=== PATIENT | male | born 1945 | race Caucasian/White ===

== ENCOUNTER → 2020-08-22 | Outpatient (CLI) | payer MEDICARE, BC ==
[2020-08-22 11:14] LABS: Basophils # (A) 0.1 k/uL (0-0.2); Basophils % (A) 1 %; Eosinophils # (A) 0.3 k/uL (0-0.7); Eosinophils % (A) 4 %; HCT 44.5 % (39.0-53.0); HGB 14.6 gm/dL (13.0-17.5); Lymphocytes # (A) 1.3 k/uL (1.0-4.8); Lymphocytes % (A) 18 %; MCH 29.9 pg (25.0-35.0); MCHC 32.8 g/dL (31.0-37.0); Mean Platelet Volume 6.7; Monocytes # (A) 0.3 k/uL (0-1.0); Monocytes % (A) 4 %; Neutrophils # (A) 4.9 k/uL (1.3-7.7); Neutrophils % (A) 69 %; Platelet Count 253 k/uL (150-450); RBC 4.89 m/uL (4.30-5.90); RDW 14.7 % (11.5-15.5); WBC 7.2 k/uL (3.8-10.6)
[2020-08-22 11:17] LABS: Appearance,Urine Clear (Clear); Bilirubin,Urine Negative (Negative); Blood,Urine Negative (Negative); Color,Urine Yellow; Glucose,Urine (UA) Negative (Negative); Ketones,Urine Negative (Negative); Leukocyte Esterase,Urine Negative (Negative); Nitrite,Urine Negative (Negative); PH, Urine 5.5 (5.0-8.0); Protein,Urine Negative (Negative); Specific Gravity,Urine 1.015 (1.001-1.035); Urobilinogen,Urine <2.0 mg/dL (<2.0)
[2020-08-22 11:28] LABS: African American GFR (CKD) >90 (>60 ml/min/1.73 sqM); Anion Gap 6 mmol/L; Blood Urea Nitrogen 20 mg/dL (9-20); Calcium 9.1 mg/dL (8.4-10.2); Carbon Dioxide 30 mmol/L (22-30); Chloride 101 mmol/L (98-107); Glucose 96 mg/dL (74-99); Non-African American GFR(CKD) 86 (>60 ml/min/1.73 sqM); Potassium 4.6 mmol/L (3.5-5.1); Sodium 137 mmol/L (137-145)
== END | disposition home or self-care (01) ==
LOC: LABPAT 10:24
PROVIDERS: ATTEND Urology
DX: C61 Malignant neoplasm of prostate (principal); N32.0 Bladder-neck obstruction; I10 Essential (primary) hypertension; R00.1 Bradycardia, unspecified
CPT/HCPCS: 36415; 80048; 81003; 85025; 87086; 93005

== ENCOUNTER 2020-08-29 06:26 | Day surgery (SDC) | payer MEDICARE, BC ==
[2020-08-24 09:02] VITALS: BMI 44.6
--- NOTE | 2020-08-28 19:40 | P.GSHP ---
History of Present Illness H&P Date: 08/28/20 75 yo male with prostate cancer treated with brachytherapy in 2014 at [facility] He eventually came to [place] and I assumed his prostate care. He has been having increasing urinary frequency with incomplete bladder emptying. He had cysto identifying an obstructing bladder neck. He comes for a bipolar channel turp to relieve the obstruction. the risks and complications including infection, bleeding and incontinence have been discussed. - Constitutional Constitutional: Denies chills, Denies fever - EENT Eyes: denies blurred vision, denies pain Ears, nose, mouth and throat: Denies headache, Denies sore throat - Cardiovascular Cardiovascular: Denies chest pain, Denies shortness of breath - Respiratory Respiratory: Denies cough, Denies 7 - Gastrointestinal Gastrointestinal: Denies abdominal pain, Denies diarrhea, Denies nausea, Denies vomiting - Genitourinary (Female) Genitourinary: Denies dysuria, Denies hematuria - Genitourinary (Male) Genitourinary: Denies dysuria, Denies hematuria - Musculoskeletal Musculoskeletal: Denies myalgias - Integumentary Integumentary: Denies pruritus, Denies rash - Neurological Neurological: Denies numbness, Denies weakness - Psychiatric Psychiatric: Denies anxiety, Denies depression - Endocrine Endocrine: Denies fatigue, Denies weight change Past Medical History Past Medical History: Cancer, Eye Disorder, Hypertension, Prostate Disorder Additional Past Medical History / Comment(s): PROSTATE CANCER WITH RADIATION. BILAT CATARACTS. BLE NEUROPATHY History of Any Multi-Drug Resistant Organisms: None Reported Past Surgical History: Joint Replacement, Orthopedic Surgery, Prostate Surgery, Tonsillectomy Additional Past Surgical History / Comment(s): LT TKA 2014 WITH REVISION IN 2014. LT KNEE SX. RT BUNIONECTOMY. COLONOSCOPY. EPIDURAL BACK INJECTIONS Past Anesthesia/Blood Transfusion Reactions: No Reported Reaction Smoking Status: Former smoker - Past Family History Father Family Medical History: Cancer Additional Family Medical History / Comment(s): BRAIN Mother Family Medical History: Cancer Additional Family Medical History / Comment(s): LUNG Brother(s) Family Medical History: Cancer Additional Family Medical History / Comment(s): PANCREATIC Medications and Allergies Home Medications Medication Instructions Recorded Confirmed Type Ascorbic Acid [Vitamin C] 1,000 mg PO DAILY 08/24/20 08/24/20 History Cholecalciferol [Vitamin D3 (25 100 mcg PO DAILY 08/24/20 08/24/20 History Mcg = 1000 Iu)] Gabapentin 600 mg PO TID 08/24/20 08/24/20 History Meloxicam [Mobic] 7.5 mg PO BID 08/24/20 08/24/20 History Metoprolol Succinate [Toprol XL] 25 mg PO DAILY 08/24/20 08/24/20 History Pyridoxine HCl (Vitamin B6) 100 mg PO DAILY 08/24/20 08/24/20 History [Vitamin B-6] hydroCHLOROthiazide [Hydrodiuril] 25 mg PO MOWEFR 08/24/20 08/24/20 History lisinopriL 40 mg PO DAILY 08/24/20 08/24/20 History Allergies Allergy/AdvReac Type Severity Reaction Status Date / Time Penicillins Allergy Anaphylaxis Verified 08/24/20 08:49 Surgical - Exam - General well developed, well nourished, no distress - Eyes PERRL - ENT normal mucosa - Neck trachea midline - Respiratory normal expansion, normal respiratory effort - Cardiovascular Rhythm: regular - Abdomen Abdomen: soft, non tender - Genitourinary normal penis with no external lesions, testicles present - Integumentary no rash, no growths - Musculoskeletal normal gait, normal posture - Psychiatric oriented to time, oriented to person, oriented to place, speech is normal, memory intact Assessment and Plan Assessment: Impression: Prostate cancer, bladder neck obstruction Plan: bipolar turp
[~2020-08-29 06:26] MED LIST: CLINDAMYCIN 900 MG in DEXTROSE 5% IN WATER 50 ML IVPB PRN; DEXAMETHASONE SOD PHOSPHATE 4 MG/ML 1 ML VIAL IV ONE; GENTAMICIN 480 MG in SODIUM CHLORIDE 0.9% 100 ML IVPB PRN; LACTATED RINGERS 1,000 ML IV SCH; ONDANSETRON 4 MG/2 ML VIAL IVP ONE; SCOPOLAMINE 1.5MG/72HR PATCH TRANSDERM ONE
[2020-08-29] MEDS ORDERED: HYDROmorphone 0.5 MG/0.5 ML SYRINGE IVP PRN (07:00)
[2020-08-29] MEDS ORDERED: LIDOCAINE 1% (10MG/ML) FOR IV START INTRADERMA ONE (07:11)
[2020-08-29] MEDS ORDERED: fentaNYL (PF) 50 MCG/ML 2 ML AMP ONE (07:19)
[2020-08-29] MEDS ORDERED: SUCCINYLCHOLINE CHLORIDE 100 MG/5 ML SYR IV ONE (07:19)
[2020-08-29] MEDS ORDERED: GLYCOPYRROLATE 0.2 MG/ML 2 ML VIAL ONE (07:19)
[2020-08-29] MEDS ORDERED: ROCURONIUM 10 MG/ML (5 ML VIAL) IV ONE (07:19)
[2020-08-29] MEDS ORDERED: LIDOCAINE 1% INJ 10MG/ML (20 ML MDV) ONE (07:19)
[2020-08-29] MEDS ORDERED: PROPOFOL 10 MG/ML 20 ML VIAL IV ONE (07:19)
[2020-08-29] MEDS ORDERED: MIDAZOLAM 2 MG/2 ML VIAL ONE (07:19)
[2020-08-29] MEDS ORDERED: ePHEDrine SULFATE/0.9% NACL/PF 50 MG/5 ML SYRINGE IV ONE (07:19)
[2020-08-29] MEDS ORDERED: NEOSTIGMINE 1 MG/ML 10 ML VIAL ONE (07:19)
[2020-08-29 07:22] VITALS: TEMP 97.2
--- NOTE | 2020-08-29 08:24 | P.OP ---
Date of Procedure: 08/29/20 Preoperative Diagnosis: Bladder neck obstruction, incomplete bladder emptying, prostate cancer status post radiation therapy Postoperative Diagnosis: Same Procedure(s) Performed: Bipolar TURP with plasma button Anesthesia: MORENA Surgeon: Marcello Edgar Estimated Blood Loss (ml): 10 Pathology: none sent Condition: stable Disposition: PACU Indications for Procedure: The patient is 75. Many years ago he had achy therapy for prostate cancer [facility]. Is been having problems urinating. His PSA is nondetectable. His bladder neck is obstructed and he does not empty his bladder well. He comes for a bipolar TURP with probable plasma button Description of Procedure: Patient is brought to the operating suite. He is given a general endotracheal anesthesia. He is prepped and draped sterilely. Urethra is dilated to 3-Panamanian with [place] sounds. Under direct vision the 25-Panamanian sheath and direct vision obturator and Foroblique lenses introduced in urethra. The prostate inspected. The bladder neck is high riding. There is some lateral lobe obstruction. With the plasma button I first opened the bladder neck. I then vaporized the lateral lobes anterior lobe and then the redundant floor tissue. Then the procedure sitting of the verumontanum the bladder neck is open the scope easily slides in and out of the bladder. The scope was removed and the bladder. With a good strong stream. An 18-[place]amanian coud-tip catheter is introduced in the bladder clear urine return The patient is awake and returned recovery room good condition. He will be discharged home upon recovery with the catheter. A found the office in 48 hours for cath removal. Blood loss is minimal.
[2020-08-29 08:47] VITALS: RESP 16
[2020-08-29 09:45] VITALS: BP 110/76; PULSE 64
== END 2020-08-29 10:18 | disposition home or self-care (01) ==
LOC: OR 06:26
PROVIDERS: ATTEND Urology
DX: N32.0 Bladder-neck obstruction (principal); Z85.46 Personal history of malignant neoplasm of prostate; Z92.3 Personal history of irradiation; I10 Essential (primary) hypertension; H26.9 Unspecified cataract; G62.9 Polyneuropathy, unspecified; Z87.891 Personal history of nicotine dependence; G47.33 Obstructive sleep apnea (adult) (pediatric); Z99.89 Dependence on other enabling machines and devices; M48.00 Spinal stenosis, site unspecified; Z98.890 Other specified postprocedural states; Z96.652 Presence of left artificial knee joint; Z97.2 Presence of dental prosthetic device (complete) (partial); Z80.8 Family history of malignant neoplasm of other organs or systems; Z80.1 Family history of malignant neoplasm of trachea, bronchus and lung; Z80.0 Family history of malignant neoplasm of digestive organs; Z79.1 Long term (current) use of non-steroidal anti-inflammatories (NSAID); Z79.899 Other long term (current) drug therapy; Z88.0 Allergy status to penicillin
CPT/HCPCS: 52601; J2250; J1100; J2710; J2405; J2001; J3010; J1580; J0330; J2704

== ENCOUNTER → 2021-06-18 | Outpatient (CLI) | payer MEDICARE, BC ==
--- NOTE | 2021-06-18 11:58 | XR ---
EXAMINATION TYPE: XR KUB DATE OF EXAM: 06/18/2021 HISTORY: Pain Comparison: None.Single KUB is submitted for interpretation. Findings: Right renal calculi: None Visualized. Right ureteral calculi: None Visualized. Left renal calculi: 7.7 mm calculus mid left ureter at the L3-4 level. Left ureteral calculi: None Visualized. Pelvic calcifications: None Visualized. Bowel gas pattern is unremarkable. No free air. No mass effects. IMPRESSION: 1. 7.7 mm calculus mid left ureter at the L3-4 level.
== END | disposition home or self-care (01) ==
LOC: RADXRMAIN 10:28
PROVIDERS: ATTEND Urology
DX: N20.1 Calculus of ureter (principal)
CPT/HCPCS: 74018

== ENCOUNTER → 2021-06-28 | Outpatient (CLI) | payer MEDICARE, BC ==
--- NOTE | 2021-06-28 12:03 | XR ---
EXAMINATION TYPE: XR chest 2V DATE OF EXAM: 06/28/2021 COMPARISON: NONE HISTORY: Shortness of breath TECHNIQUE: Frontal and lateral views of the chest are obtained. FINDINGS: Scattered senescent parenchymal changes noted. Hyperinflation compatible with COPD. No evidence for infiltrate. No evidence for atelectasis. Heart size is stable. Mediastinal structures are stable and grossly unremarkable. No evidence for hilar prominence. Degenerative changes dorsal spine. IMPRESSION: 1. No evidence for acute pulmonary disease.
[2021-06-28 12:38] LABS: Appearance,Urine Clear (Clear); Bilirubin,Urine Negative (Negative); Blood,Urine Negative (Negative); Color,Urine Yellow; Glucose,Urine (UA) Negative (Negative); Hyaline Casts,Urine 1 /lpf (0-2); Ketones,Urine Negative (Negative); Leukocyte Esterase,Urine Trace (Negative); Mucus,Urine Rare /hpf; Nitrite,Urine Negative (Negative); PH, Urine 5.5 (5.0-8.0); Protein,Urine 1+ (Negative); Specific Gravity,Urine 1.022 (1.001-1.035); Urobilinogen,Urine <2.0 mg/dL (<2.0); WBC,Urine 13 /hpf (0-5)
[2021-06-28 12:48] LABS: Partial Thromboplastin Time 25.2 sec (22.0-30.0); Prothrombin Time 10.8 sec (9.0-12.0)
[2021-06-28 18:11] LABS: African American GFR (CKD) 39.6 (60.0-200.0); Anion Gap 12.2 mmol/L (10.00-18.00); BUN/Creat Ratio 16.38 Ratio (12.00-20.00); Blood Urea Nitrogen 30.8 mg/dL (9.0-27.0); Calcium 8.9 mg/dL (8.7-10.3); Non-African American GFR(CKD) 34.2 (60.0-200.0); Potassium 4.8 mmol/L (3.5-5.5)
[2021-06-28 18:17] LABS: Basophils # (A) 0.07 X 10*3/uL (0.00-0.10); Basophils % (A) 1.1 %; Eosinophils % (A) 6.5 %; HGB 13.2 g/dL (13.0-17.0); Immature Grans, Automated 0.2 %; Lymphocytes # (A) 1.17 X 10*3/uL (0.90-5.00); Lymphocytes % (A) 19.1 %; MCH 29.4 pg (27.0-32.0); MCHC 31.4 g/dL (32.0-37.0); MCV 93.5 fL (80.0-97.0); Mean Platelet Volume 9.4 fL (9.5-12.2); Monocytes # (A) 0.51 X 10*3/uL (0.20-1.00); Monocytes % (A) 8.3 %; NRBC Per 100 WBC 0 /100 WBCS (0.0-0.0); Neutrophils # (A) 3.98 X 10*3/uL (1.80-7.70); Neutrophils % (A) 64.8 %; Platelet Count 283 X 10*3/uL (140-440); RBC 4.49 X 10*6/uL (4.40-5.60); RDW 14.5 % (11.5-14.5); WBC 6.14 X 10*3/uL (4.50-10.00)
== END | disposition home or self-care (01) ==
LOC: RADXRMAIN 11:18
PROVIDERS: ATTEND Orthopaedic Surgery Orthopaedic Surgery of the Spine
DX: Z01.818 Encounter for other preprocedural examination (principal); M48.061 Spinal stenosis, lumbar region without neurogenic claudication; R06.02 Shortness of breath
CPT/HCPCS: 36415; 71046; 80048; 81001; 85025; 85610; 85730; 87070; 93005

== ENCOUNTER → 2021-06-28 | Outpatient (CLI) | payer MEDICARE, BC ==
--- NOTE | 2021-06-28 12:30 | XR ---
EXAMINATION TYPE: XR KUB DATE OF EXAM: 06/28/2021 HISTORY: Pain Comparison: None.Single KUB is submitted for interpretation. Findings: Right renal calculi: None Visualized. Right ureteral calculi: None Visualized. Left renal calculi: None Visualized. Left ureteral calculi: 6 mm calculus overlying the left L5 transverse process. Pelvic calcifications: None Visualized. Bowel gas pattern is unremarkable. No free air. No mass effects. IMPRESSION: 6 mm calculus overlying the left L5 transverse process.
== END | disposition home or self-care (01) ==
LOC: RADXRMAIN 11:30
PROVIDERS: ATTEND Urology
DX: N20.1 Calculus of ureter (principal)
CPT/HCPCS: 74018

== ENCOUNTER 2021-07-04 11:53 | Day surgery (SDC) | payer MEDICARE, BC ==
[2021-07-02 11:21] VITALS: BMI 42.3
--- NOTE | 2021-07-04 07:03 | P.GSHP ---
History of Present Illness H&P Date: 07/04/21 75 yo male with a history of stones. HE had eswl left 06/24 for a larger upper ureteral stone. The fu xray shows the stone broke a little and moved distally. He is to have back surgery next week. We discussed treatment and I explained to him that I didnt want to have to operate on him if the stone doesnt move and causes pain after a fresh back surgery. He therefore comes for left ureteroscopy with laser lithotripsy. - Constitutional Constitutional: Denies chills, Denies fever - EENT Eyes: denies blurred vision, denies pain Ears, nose, mouth and throat: Denies headache, Denies sore throat - Cardiovascular Cardiovascular: Denies chest pain, Denies shortness of breath - Respiratory Respiratory: Denies cough, Denies 7 - Gastrointestinal Gastrointestinal: Denies abdominal pain, Denies diarrhea, Denies nausea, Denies vomiting - Genitourinary (Female) Genitourinary: Denies dysuria, Denies hematuria - Genitourinary (Male) Genitourinary: Denies dysuria, Denies hematuria - Musculoskeletal Musculoskeletal: Denies myalgias - Integumentary Integumentary: Denies pruritus, Denies rash - Neurological Neurological: Denies numbness, Denies weakness - Psychiatric Psychiatric: Denies anxiety, Denies depression - Endocrine Endocrine: Denies fatigue, Denies weight change Past Medical History Past Medical History: Cancer, Hearing Disorder / Deafness, Hypertension, O steoarthritis (OA), Prostate Disorder, Sleep Apnea/CPAP/BIPAP Additional Past Medical History / Comment(s): C PAP MACHINE, PROSTATE CANCER, KIDNEY STONES, History of Any Multi-Drug Resistant Organisms: None Reported Past Surgical History: Joint Replacement, Tonsillectomy Additional Past Surgical History / Comment(s): TOTAL LEFT KNEE-X 2, BUNIONECTOMY RIGHT FOOT, Past Anesthesia/Blood Transfusion Reactions: No Reported Reaction Smoking Status: Former smoker - Past Family History Mother Family Medical History: No Reported History, Cancer Father Family Medical History: Cancer Additional Family Medical History / Comment(s): BRAIN CANCER Medications and Allergies Home Medications Medication Instructions Recorded Confirmed Type Meloxicam [Mobic] 7.5 mg PO BID 08/24/20 07/02/21 History hydroCHLOROthiazide [Hydrodiuril] 25 mg PO MOWEFR 08/24/20 07/02/21 History lisinopriL 40 mg PO DAILY 08/24/20 07/02/21 History Gabapentin [Neurontin] 600 mg PO TID 07/02/21 07/02/21 History Ibuprofen [Motrin] 600 mg PO Q8HR PRN 07/02/21 07/02/21 History Metoprolol Tartrate [Lopressor] 25 mg PO DAILY 07/02/21 07/02/21 History Solifenacin Succinate [Vesicare] 10 mg PO DAILY 07/02/21 07/02/21 History Tamsulosin [Flomax] 0.4 mg PO DAILY 07/02/21 07/02/21 History amLODIPine [Norvasc] 5 mg PO DAILY 07/02/21 07/02/21 History Allergies Allergy/AdvReac Type Severity Reaction Status Date / Time Penicillins Allergy Anaphylaxis Verified 07/02/21 10:38 Surgical - Exam - General well developed, well nourished, no distress - Eyes normal ocular movement, no icteric - ENT no hearing loss, no congestion - Neck no masses, trachea midline - Respiratory normal respiratory effort, clear to auscultation - Abdomen Abdomen: soft, non tender, no guarding, no rigid, no rebound - Integumentary no rash, no abnormal pigmentation - Neurologic no disoriented, no combative - Musculoskeletal limited gait due to bad back - Psychiatric oriented to time, oriented to person, oriented to place, speech is normal, memory intact Results - Imaging Abdominal x-ray: report reviewed, image reviewed Assessment and Plan Assessment: Impression: left ureteral stone with obstruction Plan: left ureterocopy with laser lithotripsy
[~2021-07-04 11:53] MED LIST changes: -CLINDAMYCIN 900 MG in DEXTROSE 5% IN WATER 50 ML IVPB PRN; +GENTAMICIN 140 MG in SODIUM CHLORIDE 0.9% 100 ML IVPB PRN; -GENTAMICIN 480 MG in SODIUM CHLORIDE 0.9% 100 ML IVPB PRN; +HYDROmorphone 0.5 MG/0.5 ML SYRINGE IVP PRN; +LIDOCAINE 1% (10MG/ML) FOR IV START INTRADERMA PRN; +MIDAZOLAM 2 MG/2 ML VIAL IV PRN; -SCOPOLAMINE 1.5MG/72HR PATCH TRANSDERM ONE
[2021-07-04] MEDS ORDERED: LACTATED RINGERS 1,000 ML IV ONE (12:31)
--- NOTE | 2021-07-04 13:26 | XR ---
EXAMINATION TYPE: XR KUB DATE OF EXAM: 07/04/2021 Comparison: 07/01/2021 Clinical History: 75-year-old male kidney stones, lithotripsy OR SCHEDULED 07/04/21 Findings: Moderate to severe degenerative change right hip. Some vascular calcifications in the left side of th e pelvis. Unchanged 8 mm calcification projecting just above the left SI joint. Nonobstructive bowel gas pattern. Mild stool in the right side of the abdomen. Impression: Unchanged 8 mm calcification possibly in the mid left ureter.
[2021-07-04] MEDS ORDERED: SUCCINYLCHOLINE CHLORIDE 100 MG/5 ML SYR IV ONE (14:04)
[2021-07-04] MEDS ORDERED: PROPOFOL 10 MG/ML 20 ML VIAL IV ONE (14:04)
[2021-07-04] MEDS ORDERED: LIDOCAINE 1% INJ 10MG/ML (20 ML MDV) ONE (14:04)
[2021-07-04] MEDS ORDERED: ROCURONIUM 10 MG/ML (5 ML VIAL) IV ONE (14:04)
[2021-07-04] MEDS ORDERED: ePHEDrine 50 MG/ML 1 ML VIAL ONE (14:04)
[2021-07-04] MEDS ORDERED: GLYCOPYRROLATE 0.2 MG/ML 2 ML VIAL ONE (14:04)
[2021-07-04] MEDS ORDERED: fentaNYL (PF) 50 MCG/ML 2 ML AMP ONE (14:04)
[2021-07-04] MEDS ORDERED: NEOSTIGMINE 1 MG/ML 10 ML VIAL ONE (14:04)
--- NOTE | 2021-07-04 15:41 | P.OP ---
Date of Procedure: 07/04/21 Preoperative Diagnosis: left ureteral stone Postoperative Diagnosis: Same Procedure(s) Performed: Cystoscopy, left ureteroscopy laser lithotripsy, placement of 6 x 26 stent Anesthesia: MORENA Surgeon: Marcello Edgar Estimated Blood Loss (ml): 0 Pathology: other (Stone) Condition: stable Disposition: PACU Indications for Procedure: Patient is 75. A 9 mm stone in the left UPJ treated with shockwave lithotripsy. The stone broke but a 6-7 mm fragment lodged in the mid ureter. He is having back surgery next week. He he comes for removal of this stones he does not problems from the stone during the back surgery Description of Procedure: Patient brought operating suite. He is given a general anesthesia. He's placed lithotomy position with sterile prep and drape. Cystoscopy Foroblique lens and 21-Spanish sheath identifies a normal anterior urethra. There is scarring and apical prostate from a previous TURP. This is manipulated. There is some stony debris in the prostate. I entered the bladder identify trabeculation. The left ureteral orifice is somewhat small. I attempted dilated with the 8 cone-tipped catheter but I am unsuccessful if this up. I thus passed an 035 wire up the ureter into the kidney. Over the wires passed a 23-22-Gmfblu reentry sheath that passes just distal to the ureteral stone. Through the inner sheath the flexible ureteroscope was passed up to the stone. I break the stone into very tiny fragments and basket the largest fragments. There is a lot of edema in the left ureter where the stone enlarged due to the stone as well as the laser lithotripsy. A stent will be placed. I passed a wire through the scope up into the kidney. I removed the sheath and backloaded the wire onto the cystoscope. Over the wires passed a 6 x 26 double-J catheter. Because he is having his back surgery next week I will leave the stent in 3-4 weeks as I do not wish to do any significant manipulation during the immediate perioperative period. He'll be placed on Levaquin for 10 days.
[2021-07-04 15:49] VITALS: RESP 16; TEMP 96.8
[2021-07-04 16:55] VITALS: BP 127/69; PULSE 77
--- NOTE | 2021-07-04 22:10 | FL ---
Intraoperative fluoroscopic services were provided for left ureteral stent placement. Total fluorosco py time 47 seconds minutes with a total of 2 submitted images to PACS. Please see the operative note for further details.
== END 2021-07-04 18:49 | disposition home or self-care (01) ==
LOC: OR 11:53
PROVIDERS: ATTEND Urology
DX: N20.1 Calculus of ureter (principal); H91.90 Unspecified hearing loss, unspecified ear; I10 Essential (primary) hypertension; M19.90 Unspecified osteoarthritis, unspecified site; G47.30 Sleep apnea, unspecified; M48.00 Spinal stenosis, site unspecified; Z97.2 Presence of dental prosthetic device (complete) (partial); Z85.46 Personal history of malignant neoplasm of prostate; Z96.652 Presence of left artificial knee joint; Z98.890 Other specified postprocedural states; Z87.891 Personal history of nicotine dependence; Z80.8 Family history of malignant neoplasm of other organs or systems; Z79.1 Long term (current) use of non-steroidal anti-inflammatories (NSAID); Z79.899 Other long term (current) drug therapy; Z88.0 Allergy status to penicillin
CPT/HCPCS: 82365; 74018; 52356; C2625; C1758 ×2; C1769; J1100; J2710; J2405; J2001; J3010; J1580; J0330; J2704

== ENCOUNTER 2021-07-10 06:18 | Inpatient (IN) | payer MEDICARE, BC ==
[2021-07-08 10:35] VITALS: BMI 42.3
[2021-07-10] MEDS ORDERED: LIDOCAINE 1% (10MG/ML) FOR IV START INTRADERMA PRN (06:22)
[2021-07-10] MEDS ORDERED: ONDANSETRON 4 MG/2 ML VIAL IVP ONE (06:22)
[2021-07-10] MEDS ORDERED: HYDROmorphone 0.5 MG/0.5 ML SYRINGE IVP PRN (07:00)
[2021-07-10] MEDS: LACTATED RINGERS 1,000 ML IV SCH (07:01)
[2021-07-10 07:32] LABS: Partial Thromboplastin Time 25.6 sec (22.0-30.0); Prothrombin Time 11.3 sec (9.0-12.0)
[2021-07-10] MEDS ORDERED: KETAMINE 10 MG/ML 20 ML VIAL ONE (07:44)
[2021-07-10] MEDS ORDERED: SUCCINYLCHOLINE CHLORIDE VIAL 200 MG/10 ML VIAL IV ONE (07:44)
[2021-07-10] MEDS ORDERED: HYDROmorphone (PF) 1 MG/ML ONE (07:44)
[2021-07-10] MEDS ORDERED: PHENYLEPHRINE-0.9% NACL SYG 1,000 MCG/10 ML SYRINGE ONE (07:44)
[2021-07-10] MEDS ORDERED: SODIUM CHLORIDE 0.9% IRRIG 1,000 ML BTL IRRIGATION ONE (07:44)
[2021-07-10] MEDS ORDERED: MIDAZOLAM 2 MG/2 ML VIAL ONE (07:44)
[2021-07-10] MEDS ORDERED: HEPARIN SODIUM,PORCINE 10,000 UNIT/ML 1 ML VIAL ONE (07:44)
[2021-07-10] MEDS ORDERED: SODIUM CHLORIDE 0.9% 100 ML with CLINDAMYCIN 600 MG IV ONE ×2 (07:44)
[2021-07-10] MEDS ORDERED: fentaNYL (PF) 50 MCG/ML 2 ML AMP ONE (07:44)
[2021-07-10] MEDS ORDERED: PROPOFOL 10 MG/ML 20 ML VIAL IV ONE (07:44)
[2021-07-10] MEDS ORDERED: ALBUMIN HUMAN 5% (25gm) 500 ML VIAL IVPB ONE (07:44)
[2021-07-10] MEDS ORDERED: LIDOCAINE 1% INJ 10MG/ML (20 ML MDV) ONE (07:44)
[2021-07-10] MEDS ORDERED: VASOPRESSIN 20 UNIT/ML 1 ML VIAL ONE (07:44)
[2021-07-10] MEDS ORDERED: ROCURONIUM 10 MG/ML (5 ML VIAL) IV ONE (07:44)
[2021-07-10] MEDS ORDERED: NEOSTIGMINE 1 MG/ML 10 ML VIAL ONE (07:44)
[2021-07-10] MEDS ORDERED: GLYCOPYRROLATE 0.2 MG/ML 2 ML VIAL ONE (07:44)
[2021-07-10] MEDS ORDERED: ePHEDrine 50 MG/ML 1 ML VIAL ONE (07:44)
[2021-07-10] MEDS ORDERED: ALBUTEROL HFA INHALER INHALATION ONE (07:44)
[2021-07-10] MEDS ORDERED: GELATIN SPONGE,ABSORB (LARGE) 1 EACH SPONGE MISCELLANE ONE (08:28)
[2021-07-10] MEDS ORDERED: BUPIVACAINE (PF) 0.25% 30 ML VIAL SQ ONE ×2 (08:29)
[2021-07-10] MEDS ORDERED: THROMBIN (BOVINE) 5,000 UNIT VIAL TOPICAL ONE (08:29)
[2021-07-10] MEDS ORDERED: LACTATED RINGERS 1,000 ML IV ONE ×4 (08:36→13:57)
[2021-07-10] MEDS ORDERED: ceFAZolin 1,000 MG in SODIUM CHLORIDE 0.9% 1,000 ML IRRIGATION ONE (08:54)
[2021-07-10] MEDS ORDERED: BENZOCAINE/MENTHOL LOZENG 1 EACH LOZENGE MUCOUS MEM PRN (12:46)
[2021-07-10] MEDS ORDERED: HYDROmorphone 1 MG/ML 1 ML SYRINGE IVP PRN ×2 (12:46)
--- NOTE | 2021-07-10 13:03 | P.OP ---
Date of Procedure: 07/10/21 Preoperative Diagnosis: Grade 2 spondylolisthesis L4 5, 1 retrolisthesis L5-S1, degenerative disc disease, spinal stenosis, lower extremity radiculopathy, low back pain, lower extremity weakness Postoperative Diagnosis: Same Anesthesia: GETA Pathology: none sent Condition: stable Disposition: PACU Description of Procedure: DESCRIPTION OF PROCEDURE(S): BRIEF OPERATIVE NOTE Preoperative Diagnosis: Grade 2 spondylolisthesis L4 5, 1 retrolisthesis L5-S1, degenerative disc disease, spinal stenosis, lower extremity radiculopathy, low back pain, lower extremity weakness Postoperative Diagnosis:Grade 2 spondylolisthesis L4 5, 1 retrolisthesis L5-S1, degenerative disc disease, spinal stenosis, lower extremity radiculopathy, low back pain, lower extremity weakness Procedure: Laminectomy and decompression L4 5 L5-S1 Minimally invasive Posterior lateral decompression and facet fusion L4 5 L5-S1 Minimally invasive Transforaminal lumbar interbody fusion for a 360 fusion L4 5 L5-S1 Discectomy for decompression L4 5 L5-S1 Placement of interbody graft L4 5 L5-S1 Local autogenous bone grafting Bone marrow aspiration from L4 vertebral body to augment local autogenous and allograft bone graft Use of biplanar fluoroscopy used throughout case for positioning and placement of hardware Use of Cell Saver Use of bone graft extenders Surgeon: Dr. Pritchard Chemistry Quality Control Analyst: Robby Roberts is present throughout the entire the case persistence during positioning, dissection, exposure, visualization, and all crucial elements of the case as well as closure. Anesthesia: General anesthesia per Dr. Dr. Hood Estimated blood loss: Approximately 300 mL with 145 given back through Cell Saver Complications: None apparent Components implanted: K2M [place] pedicle screws 6.5 mm in diameter to rods and 2 [place] interbody cages with 10 mL of bio4 bone graft and DBX bone putty to supplemental local autogenous bone graft and bone marrow aspirate Disposition: To recovery room in good stable condition. OPERATIVE INDICATIONS The patient has had long-standing issues in their lower back and lower extremities. Patient is having worsening pain despite aggressive conservative care. He was found have severe degenerative changes at L4 5 and L5-S1 with spondylolisthesis and dynamic instability with spinal stenosis at both levels. These correlated with his low back and lower extremity symptoms. The patient has been through conservative treatment. We discussed various treatment options including surgery, and the patient wishes to proceed with surgery We discussed the risk, patient's alternatives and benefits of surgery including but not limited to, risk of bleeding risk of infection, risk of need for further surgery, risk of decreased, loss of motion, muscle function, malunion nonunion, hardware failure, nerve damage, paralysis, heart attack, blindness and . OPERATIVE SUMMARY After discussing all the risks, patient alternatives and benefits at length, the patient elected to proceed with surgical intervention, signed informed consent, and presented for their procedure. The patient was seen and examined in the preoperative holding area and the surgical site was marked. The patient was given antibiotics and brought to the operating room. The patient was sedated and intubated by anesthesia in standard fashion. The patient was positioned on to the operating room table in a prone position on the appropriate frame which was well-padded and well molded. We were careful to pad any bony prominences and pressure points. We were careful to maintain the patient's cervical spine and good neutral alignment and position throughout. The patient was prepped and draped in a normal standard fashion. An appropriate timeout and keystone protocol performed. We had planned on using the same navigation system however the system was not functioning well and we chose to continue with minimally invasive procedure with biplanar C-arm imaging. We were able to proceed with the surgery. The local wound area was infiltrated with local anesthetic. I was able utilize C-arm guidance to establish appropriate position over the pedicles bilaterally at the appropriate levels at L4-L5 and S1. With the appropriate levels confirmed was able to make small stab incisions over the appropriate pedicle sites bilaterally. Utilizing C-arm in a biplanar fashion with to see arms I was able able to establish a Jamshidi needle over the lateral aspect of the pedicle and advanced the trocar into the pedicle being careful not to breech superiorly inferiorly medially or laterally. Position was confirmed regularly with AP and lateral images on C-arm. I was able to establish the trocar into the pedicle appropriately into the posterior aspect of the vertebral body bilaterally at the appropriate levels at L4-L5 and S1. This was done at each of the pedicle positions and each of the vertebrae. I was able place the guidewire into the trocar and into the vertebral body appropriately under C-arm guidance. I had to exchange the guidewires for appropriate sizing for the cannulated screws as the patient has a nickel ALLERGY which we were able to accommodate with the appropriate hardware. Dissection was taken down over the wire to the appropriate starting position for the screw placed. The appropriate length screw was chosen, threaded over the guidewire and screwed appropriately into the pedicle and vertebral body under C-arm guidance in excellent alignment and position with good bony purchase. This is done at each of the screw sites at the appropriate levels at L4-L5 and S1. During the case the patient did have some desaturation and anesthesia was involved in the case throughout. He had been doing very well in the case. He showed some decline in his oxygen saturation for a short time. He was desaturating to the low 90s and upper 80s for a very short period of time less than a few minutes. There able to evaluate and felt that his tube was somewhat deep which was confirmed with C-arm guidance. The tube was pulled back slightly and he had excellent saturation from there on out. With the screws intact I extended the incision to connect the screw hole sites o n the most symptomatic side on the right. I dissected down to establish access over the pars and lamina to the base of the spinous process. I was able to expose the facet joint. The capsule the facet was taken down and showed some severe facet arthrosis at the joint. I was able to use a combination of curettes and Kerrison rongeurs and a high-speed drill to take down the facet joint and do a facetectomy. Partial laminectomy was also performed. I was able get excellent foraminal decompression and central decompression with undermining across midline to perform a laminectomy centrally and contralaterally. As able get good central decompression. The ligamentum flavum was taken down to further decompress centrally and at bilateral neural foramen. I was able to expose the disc space and visualize the traversing nerve root. Note was made of some disc protrusion at the level causing further compression of the nerve root. I was able to establish a annulotomy at the appropriate level protecting soft tissue and neural structures. Note was made of some severe disc desiccation at the disc. I performed a complete discectomy with accommodation of curettes and rasps and scrapers. I was able get good endplate preparation at the disc space. I sized for the appropriate size interbody spacer protecting the soft tissue and neural structures. The wound was copiously irrigated and suctioned dry. There is no evidence of any dural tear or leak. I was able to pack the disc space with local autogenous bone graft as well as a small amount of bone graft which was also placed into the interbody cage itself. Protecting the soft tissue structures and neural structures I was able place the interbody cage in good alignment and good position with good fit and fill at the interbody space. His issues was confirmed with C-arm guidance. Good hemostasis maintained. There is no evidence of any dural tear or leak. The wound was irrigated and suctioned dry. With the hardware intact, intraoperative C-arm imaging was again taken which showed good alignment and position of the hardware at the appropriate levels. We were then able to measure, contour and place the rods and appropriate hardware bilaterally. I was able to place capcrews, tighten them down, and torque them with the torque screwdriver appropriately. With this intact I was able to place the local autogenous bone graft with additional bone graft enhancer as necessary into the posterior lateral gutters over the decorticated transverse processes. The remainder of the bone graft was placed over the facet joint on the contralateral side after taking down the facet joint capsule. With the bone graft intact, a stable construct, and good decompression at the appropriate levels, we were able to proceed with closure. Good hemostasis was maintained. There is no evidence of dural tear or leak. The fascia was closed for a watertight closure. he subcuticular tissue was closed with absorbable suture. The wound was cleaned and dried and dressed with the appropriate dressing. The drapes were broken down. The patient was gently rolled back onto their hospital bed being careful to maintain their cervical spine and good neutral alignment and position. They were woken up by anesthesia, extubated, and brought to the recovery room in good stable condition. The patient will be admitted to the hospital for appropriate postoperative care, medical management and monitoring. We will continue to follow them closely about the postoperative course.
[2021-07-10] MEDS: SODIUM CHLORIDE 0.9% 1,000 ML IV SCH (15:55)
--- NOTE | 2021-07-10 16:04 | FL ---
Fluoroscopy INDICATION: Pain FINDINGS: Fluoroscopy time: Not reported Images obtained: 0. IMPRESSIONS: 1. Documentation of fluoroscopy.
[2021-07-10] MEDS: HYDROcodone/APAP 5-325MG 1 EACH TAB PO PRN (16:30)
[2021-07-10] MEDS: TAMSULOSIN 0.4 MG CAP.ER.24H PO SCH (17:18)
[2021-07-10] MEDS: CLINDAMYCIN 900 MG in DEXTROSE 5% IN WATER 50 ML IVPB SCH ×4 (17:20→23:56)
[2021-07-11] MEDS: HYDROcodone/APAP 5-325MG 1 EACH TAB PO PRN ×2 (00:03→13:57)
[2021-07-11] MEDS: CALCIUM CARBONATE 500 MG CHEWABLE PO PRN (02:28)
--- NOTE | 2021-07-11 05:32 | XR ---
EXAMINATION TYPE: XR lumbar spine 2 or 3V DATE OF EXAM: 07/10/2021 COMPARISON: NONE HISTORY: Lumbar fusion TECHNIQUE: 2 views FINDINGS: A single fluoroscopic view of the lumbar spine was obtained that shows bilateral wires with the tips projected over the pedicles of L4-L5 and S1. 1 minute and 32 seconds of fluoroscopy time was recorded for the procedure.
[2021-07-11] MEDS: ONDANSETRON 4 MG/2 ML VIAL IVP PRN (06:29)
[2021-07-11] MEDS: LACTATED RINGERS 1,000 ML IV SCH (08:04)
[2021-07-11] MEDS: SODIUM CHLORIDE 0.9% 1,000 ML IV SCH ×2 (08:04→16:00)
[2021-07-11] MEDS: TAMSULOSIN 0.4 MG CAP.ER.24H PO SCH (08:47)
[2021-07-11] MEDS: SENNOSIDES-DOCUSATE SODIUM 1 EACH TAB PO SCH (08:48)
[2021-07-11 09:27] LABS: Basophils # (A) 0.02 X 10*3/uL (0.00-0.10); Basophils % (A) 0.2 %; Eosinophils # (A) 0 X 10*3/uL (0.04-0.35); Eosinophils % (A) 0 %; HCT 33.3 % (39.6-50.0); HGB 10.2 g/dL (13.0-17.0); Immature Grans, Automated 0.4 %; Lymphocytes # (A) 0.59 X 10*3/uL (0.90-5.00); Lymphocytes % (A) 4.8 %; MCH 29.5 pg (27.0-32.0); MCHC 30.6 g/dL (32.0-37.0); MCV 96.2 fL (80.0-97.0); Mean Platelet Volume 9.9 fL (9.5-12.2); Monocytes % (A) 10.7 %; NRBC Per 100 WBC 0 /100 WBCS (0.0-0.0); Neutrophils # (A) 10.23 X 10*3/uL (1.80-7.70); Neutrophils % (A) 83.9 %; Platelet Count 208 X 10*3/uL (140-440); RBC 3.46 X 10*6/uL (4.40-5.60); RDW 14.7 % (11.5-14.5); WBC 12.19 X 10*3/uL (4.50-10.00)
--- NOTE | 2021-07-11 09:52 | P.PN ---
Progress Note - Text Progress Note Date: 07/11/21 Postoperative day #1 Patient is seen and examined today at bedside. He is up in a chair this morning while he is seen. He says his legs are doing well. He says his back has significant pain at about a 6 or 7. The patient has some pain around the surgical site as expected. Pain is being controlled with medication. He says he was nauseous early this morning but has been able to eat since then and he has been able tolerate some diet. His Funk is intact. He denies any new neurologic changes. Physical Exam Afebrile with stable vital signs Abdomen is soft nontender. Chest has good excursion deep and space expiration The incision site is clean dry and intact. No erythema there is no purulence. Extremities have not had neurologic change from prior to surgery. He has sustained dorsal flexion plantar flexion and EHL has bilateral lower extremities Calves and thighs were soft nontender without evidence of DVT. His Funk is intact Assessment/Plan Postoperative day #1 status post minimally invasive decompression and fusion L4 5 L5-S1 for his spondylolisthesis with spinal stenosis low back pain and lower extremity radiculopathy Patient is progressing as expected from the surgery. He has already started to mobilize but it significant help. We will continue to increase the patient's mobilization with therapy. He will likely need placement after discharge from the hospital and case management will work on that with us. He still has Funk intact and he has significant neurologic history. He was having some urinary retention in the days prior to his surgery and when we placed the Funk he had large urine output despite trying to urinate on his own immediately preop. I think it would be best to leave the Funk intact for his urinary retention as he continues his Flomax. We will try to discontinue the Funk tomorrow to see if he is able to urinate adequately on his own. He'll also continue his prophylactic antibiotics while the catheter is intact with his Levaquin and clindamycin We will continue pain control with oral or IV medications. We'll continue to follow patient closely.
[2021-07-11] MEDS ORDERED: LEVOFLOXACIN 750 MG TAB PO SCH (10:00)
[2021-07-11 10:01] LABS: Anion Gap 11.7 mmol/L (10.00-18.00); BUN/Creat Ratio 17.8 Ratio (12.00-20.00); Blood Urea Nitrogen 26.7 mg/dL (9.0-27.0); Calcium 8.2 mg/dL (8.7-10.3); Carbon Dioxide 23.3 mmol/L (20.0-27.5); Non-African American GFR(CKD) 44.9 (60.0-200.0); Potassium 4.3 mmol/L (3.5-5.5)
--- NOTE | 2021-07-11 11:25 | P.CONS ---
History of Present Illness - Reason for Consult Consult date: 07/10/21 - History of Present Illness This is a pleasant 75-year-old male who presents to the hospital for an elective lateral decompression fusion and transforaminal lumbar fusion L4-5 L5 -S1. He is currently postop day #1. Patient follows at the [facility] for primary care. Past medical history includes hypertension, sleep apnea with CPAP use, neuropathy, osteoarthritis, prostate cancer, nephrolithiasis, recently underwent left ureteroscopy with lithotripsy and stenting 06/24/2021 urinary catheter was removed 07/08/2021, left knee replacement x 2, remote history of smoking quit almost 50 years ago. Patient does follow with Dr. Edgar in the office, for now lomeli catheter has been reinserted. Labs reviewed show white count 12.1, hemoglobin 10.2, platelet count 208. Covid was not detected. Patient is afebrile, heart rate 91 sinus rhythm, blood pressure in the lower side at 96/62 and 94% on 2 L nasal cannula. Patient is on antibiotics in the form of IV clindamycin. Patient denies BM, Denies flatus. Had one episode of emesis this morning, states it was brown in color. REVIEW OF SYSTEMS: CONSTITUTIONAL: No fever, no malaise, no fatigue. HEENT: No recent visual problems or hearing problems. Denied any sore throat. CARDIOVASCULAR: No chest pain, orthopnea, PND, no palpitations, no syncope. PULMONARY: No shortness of breath, no cough, no hemoptysis. GASTROINTESTINAL: No diarrhea, no abdominal pain, Reports nausea emesis x1 this AM. No BM, No gas. NEUROLOGICAL: No headaches, no weakness, no numbness. HEMATOLOGICAL: Denies any bleeding or petechiae. GENITOURINARY: Denies any burning micturition, frequency, or urgency. MUSCULOSKELETAL/RHEUMATOLOGICAL: Denies any joint pain, swelling, or any muscle pain. Reports bilateral LE numbness/tingling - chronic issue ENDOCRINE: Denies any polyuria or polydipsia. The rest of the 14-point review of systems is negative. PHYSICAL EXAMINATION: GENERAL: The patient is alert and oriented x3, not in any acute distress. Well developed, well nourished. HEENT: Pupils are round and equally reacting to light. EOMI. No scleral icterus. No conjunctival pallor. Normocephalic, atraumatic. No pharyngeal erythema. No thyromegaly. CARDIOVASCULAR: S1 and S2 present. No murmurs, rubs, or gallops. PULMONARY: Chest is clear to auscultation, no wheezing or crackles. ABDOMEN: Soft, nontender, nondistended, normoactive bowel sounds. No palpable organomegaly. MUSCULOSKELETAL: No joint swelling or deformity. EXTREMITIES: No cyanosis, clubbing, or pedal edema. +2 pulses NEUROLOGICAL: Gross neurological examination did not reveal any focal deficits. SKIN: No rashes. Assessment and plan Assessment Postop day #1 lateral decompression fusion transforaminal lumbar fusion Leukocytosis, most likely reactive secondary to surgery History of hypertension currently hypotensive we'll continue to hold blood pressure medications postoperatively and monitor Neuropathy, resume neurontin if ok with primary Sleep apnea with CPAP History kidney stones with recent lithotripsy and stent placement earlier this month, indwelling catheter removed and reinserted postoperatively Obesity GI prophylaxis pepcid DVT prophylaxis as per primary Full code Plan Monitor blood pressure Encourage IS PT/OT consult - patient will need VALENTINO on rehab F/U urology on discharge Thank you kindly for this consultation we will continue to follow along with patient this hospitalization Past Medical History Past Medical History: Cancer, Hearing Disorder / Deafness, Hypertension, Osteoarthritis (OA), Prostate Disorder, Sleep Apnea/CPAP/BIPAP Additional Past Medical History / Comment(s): uses cpap, prostate cancer, kidney stones, indwelling catheter removed 07/08/21 History of Any Multi-Drug Resistant Organisms: None Reported Past Surgical History: Tonsillectomy Additional Past Surgical History / Comment(s): left knee replacement x 2, bunionectomy rt foot, left ureteroscopy/lithotripsy/ stent- 07/04/21 Past Anesthesia/Blood Transfusion Reactions: No Reported Reaction Past Psychological History: No Psychological Hx Reported Smoking Status: Former smoker Past Alcohol Use History: Rare Additional Past Alcohol Use History / Comment(s): started smoking age 11, smoked 2-3 PPD. quit smoking age 27 Past Drug Use History: None Reported - Past Family History Father Family Medical History: Cancer Additional Family Medical History / Comment(s): BRAIN Mother Family Medical History: Cancer Additional Family Medical History / Comment(s): LUNG Brother(s) Family Medical History: Cancer Additional Family Medical History / Comment(s): PANCREATIC Medications and Allergies Home Medications Medication Instructions Recorded Confirmed Type Meloxicam [Mobic] 7.5 mg PO BID 08/24/20 07/10/21 History hydroCHLOROthiazide [Hydrodiuril] 25 mg PO MOWEFR 08/24/20 07/10/21 History lisinopriL 40 mg PO DAILY 08/24/20 07/10/21 History Gabapentin [Neurontin] 600 mg PO TID 07/02/21 07/10/21 History Ibuprofen [Motrin] 600 mg PO Q8HR PRN 07/02/21 07/10/21 History Metoprolol Tartrate [Lopressor] 25 mg PO DAILY 07/02/21 07/10/21 History Solifenacin Succinate [Vesicare] 10 mg PO DAILY 07/02/21 07/10/21 History Tamsulosin [Flomax] 0.4 mg PO DAILY 07/02/21 07/10/21 History amLODIPine [Norvasc] 5 mg PO DAILY 07/02/21 07/10/21 History Levofloxacin [Levaquin] 500 mg PO DAILY 1 Days #10 tab 07/04/21 07/10/21 Rx Allergies Allergy/AdvReac Type Severity Reaction Status Date / Time Penicillins Allergy Anaphylaxis Verified 07/10/21 06:58 Physical Exam Vitals: Vital Signs Temp Pulse Pulse Resp BP BP Pulse Ox 07/11/21 08:00 98.8 F 91 18 96/62 94 L 07/11/21 02:00 98.9 F 91 19 95/60 93 L 07/10/21 21:15 97 07/10/21 20:00 98.4 F 83 18 83/58 100 07/10/21 15:55 97.4 F L 66 18 110/74 94 L 07/10/21 15:00 67 18 108/61 97 07/10/21 14:30 70 16 100/62 97 07/10/21 14:04 72 16 96/64 96 07/10/21 13:49 69 16 91/62 98 07/10/21 13:34 70 18 96/58 100 07/10/21 13:19 67 16 119/68 100 07/10/21 13:04 68 18 95/50 100 07/10/21 12:49 96.8 F L 72 16 90/53 100 Intake and Output 07/10/21 07/11/2122 22:59 06:59 14:59 Intake Total 450 Output Total 175 1000 Balance 275 -1000 Intake: IV 100 Intake, IV Titration 350 Amount Clindamycin 900 mg In 50 Dextrose 5% in Water 50 ml @ 50 mls/hr IVPB Q6HR [facility] Rx#:[id number] Sodium Chloride 0.9% 1, 300 000 ml @ 75 mls/hr IV . [id number] [facility] Rx#:[id number] Output: Urine 175 1000 Other: Voiding Method Indwelling Catheter Weight 122.47 kg Results CBC & Chem 7: 07/11/21 03:58 07/11/21 03:58 Labs: Abnormal Lab Results - Last 24 Hours (Table) 07/11/21 Range/Units 03:58 WBC 12.19 H (4.50-10.00) X 10*3/uL RBC 3.46 L (4.40-5.60) X 10*6/uL Hgb 10.2 L (13.0-17.0) g/dL Hct 33.3 L (39.6-50.0) % MCHC 30.6 L (32.0-37.0) g/dL RDW 14.7 H (11.5-14.5) % Immature Gran # 0.05 H (0.00-0.04) X 10*3/uL Neutrophils # 10.23 H (1.80-7.70) X 10*3/uL Lymphocytes # 0.59 L (0.90-5.00) X 10*3/uL Monocytes # 1.30 H (0.20-1.00) X 10*3/uL Eosinophils # 0 L (0.04-0.35) X 10*3/uL Assessment and Plan Time with Patient: Greater than 30
[2021-07-11] MEDS: PANTOPRAZOLE 40 MG TABLET PO SCH (14:05)
[2021-07-11] MEDS: METOPROLOL SUCCINATE (ER) 25 MG TAB.ER.24H PO SCH (15:59)
[2021-07-11] MEDS: GABAPENTIN 300 MG CAP PO SCH ×2 (15:59→22:05)
[2021-07-11] MEDS: CLINDAMYCIN 900 MG in DEXTROSE 5% IN WATER 50 ML IVPB SCH ×2 (16:00)
[2021-07-11] MEDS: CYCLOBENZAPRINE 10 MG TAB PO PRN (22:05)
[2021-07-12] MEDS: CLINDAMYCIN 900 MG in DEXTROSE 5% IN WATER 50 ML IVPB SCH ×8 (00:10→23:22)
[2021-07-12] MEDS: HYDROcodone/APAP 5-325MG 1 EACH TAB PO PRN ×2 (06:10→23:22)
[2021-07-12] MEDS: SODIUM CHLORIDE 0.9% 1,000 ML IV SCH ×2 (06:11→16:55)
[2021-07-12] MEDS: GABAPENTIN 300 MG CAP PO SCH ×3 (07:09→20:20)
[2021-07-12] MEDS: METOPROLOL SUCCINATE (ER) 25 MG TAB.ER.24H PO SCH (07:09)
[2021-07-12] MEDS: PANTOPRAZOLE 40 MG TABLET PO SCH ×2 (07:10→16:55)
[2021-07-12] MEDS: SENNOSIDES-DOCUSATE SODIUM 1 EACH TAB PO SCH (07:10)
[2021-07-12] MEDS: TROSPIUM CHLORIDE 20 MG TABLET PO SCH ×2 (07:10→20:20)
[2021-07-12] MEDS: FAMOTIDINE 20 MG TAB PO SCH (07:10)
[2021-07-12] MEDS: TAMSULOSIN 0.4 MG CAP.ER.24H PO SCH (07:10)
[2021-07-12] MEDS: LACTATED RINGERS 1,000 ML IV SCH ×2 (07:10→07:19)
--- NOTE | 2021-07-12 08:43 | P.PN ---
Progress Note - Text Progress Note Date: 07/12/21 Orthopedic Spine History of present illness: Patient is a pleasant 75-year-old male who is seen and examined at the bedside following posterior lateral decompression and fusion performed Thursday. Patient states they are doing ok post operatively. He does continue to have pain at the surgical sites of the lumbar spine. He is not currently complaining of any significant lower extremity radiculopathy. He currently has his pneumatic cuffs intact bilaterally. He's had significant difficulty with mobilization. He has been able to transfer to the bedside chair twice yesterday with assistance. He has not been ambulating independently. He does feel he will need rehab at the time of discharge. Currently does not complain of nausea, vomiting, fever, or chills. Patient states pain has been adequately controlled. His Funk catheter remains intact. Patient did undergo surgical intervention with urology last week and continues on prophylactic antibiotics while his Funk catheter has remained intact with Levaquin and clindamycin. He continues to be seen exam by medicine for his other medical diagnoses Physical Exam Lumbar Fusion: Status post surgical day number 2 Patient is awake, alert, and oriented 3 Vital signs stable Good chest excursion with deep inspiration and expiration Dorsiflexion, plantarflexion, and extensor hallucis longus positive sustained bilaterally No signs or symptoms of DVT; no calf pain; pneumatic cuffs intact bilateral lower extremities No pain with palpation over the bilateral lower extremities No erythema, bruising, or obvious sign of infection over the calves or ankles bilaterally Optifoam dressings are clean, dry, and intact over the lumbar spine and right iliac crest; no erythema, purulence, or signs of infection Neurovascularly intact bilaterally lower extremities Patient is able to perform some active range of motion of the bilateral lower extremities independently but movement is significantly slow Assessment: Status post L4-5 and L5-S1 minimally invasive posterior lateral decompression and fusion with transforaminal lumbar interbody fusion Low back pain Lumbar spondylolisthesis Lower extremity radiculopathy History of prostate cancer Hypertension Obesity Plan: 1. Ambulate as tolerated; work with Physical Therapy to increase mobilization 2. Continue pain control with IV and oral medications; will plan to begin weani ng the patient off of IV narcotic medication in anticipation for discharge to a rehabilitation facility as early as tomorrow, 07/13/2021, or possibly this coming 07/15/2021. Consultation has been placed with social work for discharge planning to a rehabilitation facility. MAPS has been reviewed today, 07/13/2021, with an Overall Overdose Risk Score of 200. An "Opiod Start Talking" Form has been signed and placed in the patient's chart. A prescription has been written for [place] 5 mg/325 mg 1 tab every 4 hours as needed for pain, dispense #42. Patient is also given a prescription fo r baclofen 10 mg 1 tab 3 times a day as needed for muscle spasms, dispensed #90. He should avoid anti-inflammatory medications including [place] and ibuprofen over the next 6 weeks postoperatively. 3. Dressings to remain intact with Optifoam; patient may shower with dressings intact 4. Medical management can continue to manage patient for patient's other medical diagnoses including hypertension 5. We will plan to discontinue his Funk catheter this morning to see if he is able to void independently. If he is able to void independently, we'll plan to discontinue his antibiotic medications. If he is unable to void independently, we may plan for Funk catheter reinsertion and possible consultation with urology. 6. We will continue to follow the patient closely 7. Patient can follow-up with Robby Power PA-C or Dr. Rey Pritchard at [facility] in 2-3 weeks following discharge
[2021-07-12] MEDS ORDERED: TAMSULOSIN 0.4 MG CAP.ER.24H PO SCH (09:00)
[2021-07-12 09:43] LABS: Basophils # (A) 0.02 X 10*3/uL (0.00-0.10); Basophils % (A) 0.1 %; Eosinophils # (A) 0.01 X 10*3/uL (0.04-0.35); Eosinophils % (A) 0.1 %; HCT 32.5 % (39.6-50.0); HGB 10.1 g/dL (13.0-17.0); Immature Grans, Automated 0.7 %; Lymphocytes # (A) 0.65 X 10*3/uL (0.90-5.00); Lymphocytes % (A) 4.7 %; MCH 29.6 pg (27.0-32.0); MCHC 31.1 g/dL (32.0-37.0); MCV 95.3 fL (80.0-97.0); Mean Platelet Volume 9.7 fL (9.5-12.2); Monocytes # (A) 1.18 X 10*3/uL (0.20-1.00); Monocytes % (A) 8.6 %; NRBC Per 100 WBC 0 /100 WBCS (0.0-0.0); Neutrophils # (A) 11.84 X 10*3/uL (1.80-7.70); Neutrophils % (A) 85.8 %; Platelet Count 170 X 10*3/uL (140-440); RBC 3.41 X 10*6/uL (4.40-5.60); RDW 14.6 % (11.5-14.5); WBC 13.79 X 10*3/uL (4.50-10.00)
[2021-07-12] MEDS: CYCLOBENZAPRINE 10 MG TAB PO PRN (10:02)
[2021-07-12 10:08] LABS: African American GFR (CKD) 68.1 (60.0-200.0); Anion Gap 12.2 mmol/L (10.00-18.00); BUN/Creat Ratio 15.67 Ratio (12.00-20.00); Blood Urea Nitrogen 18.8 mg/dL (9.0-27.0); Calcium 8.3 mg/dL (8.7-10.3); Carbon Dioxide 23.8 mmol/L (20.0-27.5); Non-African American GFR(CKD) 58.8 (60.0-200.0); Potassium 3.8 mmol/L (3.5-5.5)
[2021-07-12] MEDS ORDERED: bisacodyL 10 MG SUPP RECTAL STA (10:59)
--- NOTE | 2021-07-12 13:44 | P.PN ---
Subjective Progress Note Date: 07/12/21 This is a pleasant 75-year-old male who presents to the hospital for an elective lateral decompression fusion and transforaminal lumbar fusion L4-5 L5 -S1. He is currently postop day #1. Patient follows at the [facility] for primary care. Past medical history includes hypertension, sleep apnea with CPAP use, neuropathy, osteoarthritis, prostate cancer, nephrolithiasis, recently underwent left ureteroscopy with lithotripsy and stenting 06/24/2021 urinary catheter was removed 07/08/2021, left knee replacement x 2, remote history of smoking quit almost 50 years ago. Patient does follow with Dr. Edgar in the office, for now lomeli catheter has been reinserted. Labs reviewed show white count 12.1, hemog lobin 10.2, platelet count 208. Covid was not detected. Patient is afebrile, heart rate 91 sinus rhythm, blood pressure in the lower side at 96/62 and 94% on 2 L nasal cannula. Patient is on antibiotics in the form of IV clindamycin. Patient denies BM, Denies flatus. Had one episode of emesis this morning, states it was brown in color. 07/12/2021 Patient evaluated today resting in bed. States he is concerned with the amount of pain that he is having in his currently unable to tolerate ambulation. Has not had a bowel movement since surgery but states that he is passing gas. Abdomen is soft nontender we will give a dulcolax suppository in addition patient is on Senokot daily as well as milk of magnesia as needed. Blood pressure on the lower side today at 88/54 patient did receive his Toprol-XL this morning and again blood pressure recheck 81/46. We did stop the Toprol will continue to monitor blood pressure. Planning for voiding trial today. He is afebrile, heart rate 93, 95% on 2 L nasal cannula. Labs today show white count 13.79, hemoglobin 10.1, sodium 139, potassium 3.8. Review of Systems Constitutional: Denied any fatigue denied any fever. Cardio vascular: denied any chest pain, palpitations Gastrointestinal denied any nausea vomiting Pulmonary: Denied any shortness of breath cough Neurologic denied any new focal deficits All inpatient medications were reviewed and appropriate changes in these medications as dictated in the interval history and assessment and plan. PHYSICAL EXAMINATION: GENERAL: The patient is alert and oriented x3, not in any acute distress. Well developed, well nourished. HEENT: Pupils are round and equally reacting to light. EOMI. No scleral icterus. No conjunctival pallor. Normocephalic, atraumatic. No pharyngeal erythema. No thyromegaly. CARDIOVASCULAR: S1 and S2 present. No murmurs, rubs, or gallops. PULMONARY: Chest is clear to auscultation, no wheezing or crackles. ABDOMEN: Soft, nontender, nondistended, normoactive bowel sounds. No palpable organomegaly. MUSCULOSKELETAL: No joint swelling or deformity. EXTREMITIES: No cyanosis, clubbing, or pedal edema. +2 pulses NEUROLOGICAL: Gross neurological examination did not reveal any focal deficits. SKIN: No rashes. Assessment and plan Assessment Postop day #3 lateral decompression fusion transforaminal lumbar fusion Leukocytosis, most likely reactive secondary to surgery History of hypertension currently hypotensive we'll continue to hold blood pressure medications postoperatively and monitor Neuropathy, resume neurontin Sleep apnea with CPAP History kidney stones with recent lithotripsy and stent placement earlier this month, indwelling catheter removed and reinserted postoperatively Obesity GI prophylaxis pepcid DVT prophylaxis as per primary Full code Plan Monitor blood pressure Encourage IS PT/OT consult - patient will need VALENTINO on rehab Plan for voiding trial today F/U urology on discharge Thank you kindly for this consultation we will continue to follow along with patient this hospitalization. Objective - Vital Signs Vital signs: Vital Signs Temp 98.6 F 07/12/21 07:20 Pulse 85 07/12/21 07:20 Resp 16 07/12/21 07:20 BP 88/54 07/12/21 07:20 Pulse Ox 92 L 07/12/21 07:20 Intake & Output 07/11/21 07/12/21 07/12/21 18:59 06:59 18:59 Intake Total 50 Output Total 1850 Balance -1800 Intake: Intake, IV Titration 50 Amount Clindamycin 900 mg In 50 Dextrose 5% in Water 50 ml @ 50 mls/hr IVPB Q8HR [facility] Rx#:[id number] Output: Urine 1850 Other: Voiding Method Indwelling Catheter Indwelling Catheter - Labs CBC & Chem 7: 07/12/21 06:25 07/12/21 06:25 Labs: Abnormal Lab Results - Last 24 Hours (Table) 07/11/21 07/11/21 Range/Units 03:58 03:58 WBC 12.19 H (4.50-10.00) X 10*3/uL RBC 3.46 L (4.40-5.60) X 10*6/uL Hgb 10.2 L (13.0-17.0) g/dL Hct 33.3 L (39.6-50.0) % MCHC 30.6 L (32.0-37.0) g/dL RDW 14.7 H (11.5-14.5) % Immature Gran # 0.05 H (0.00-0.04) X 10*3/uL Neutrophils # 10.23 H (1.80-7.70) X 10*3/uL Lymphocytes # 0.59 L (0.90-5.00) X 10*3/uL Monocytes # 1.30 H (0.20-1.00) X 10*3/uL Eosinophils # 0 L (0.04-0.35) X 10*3/uL Est GFR (CKD-EPI)AfAm 52.0 L (60.0-200.0) Est GFR (CKD-EPI)NonAf 44.9 L (60.0-200.0) Glucose 112 H (70-110) mg/dL Calcium 8.2 L (8.7-10.3) mg/dL
[2021-07-13] MEDS: ACETAMINOPHEN TAB 325 MG TAB PO PRN ×2 (02:38→20:42)
[2021-07-13] MEDS: LACTATED RINGERS 1,000 ML IV SCH (07:06)
[2021-07-13] MEDS: SENNOSIDES-DOCUSATE SODIUM 1 EACH TAB PO SCH (07:44)
[2021-07-13] MEDS: FAMOTIDINE 20 MG TAB PO SCH (07:44)
[2021-07-13] MEDS: TAMSULOSIN 0.4 MG CAP.ER.24H PO SCH ×2 (07:44→20:43)
[2021-07-13] MEDS: PANTOPRAZOLE 40 MG TABLET PO SCH ×2 (07:44→15:40)
[2021-07-13] MEDS: GABAPENTIN 300 MG CAP PO SCH ×3 (07:44→20:42)
[2021-07-13] MEDS: CLINDAMYCIN 900 MG in DEXTROSE 5% IN WATER 50 ML IVPB SCH ×6 (07:45→23:28)
[2021-07-13] MEDS: SODIUM CHLORIDE 0.9% 1,000 ML IV SCH ×2 (07:45→20:45)
[2021-07-13] MEDS: TROSPIUM CHLORIDE 20 MG TABLET PO SCH ×2 (07:46→20:43)
--- NOTE | 2021-07-13 08:53 | P.GSCN ---
History of Present Illness Consult date: 07/13/21 Reason for Consult: Urinary retention History of present illness: This is a 75-year-old male that underwent spinal fusion, at L4-S1 level on F ebruary 24. Catheter was removed on the , after catheter removal patient was not able to void and catheter was reinserted. He does have history of prostate cancer, treated with brachytherapy and radiation, his PSA has been undetectabl. History of obstructive and overactive bladder symptoms at baseline. He underwent a left-sided ureteroscopy to address a ureteral stone by Dr. Baker on , and did develop postoperative urinary retention. Catheter was removed before his spinal surgery he's been able to void spontaneously. He does take Flomax 0.4 mg daily. Denies any dysuria or gross hematuria. Review of Systems - Constitutional Denies fever, Denies weight loss - EENT Ears, nose, mouth and throat: Denies dysphagia - Cardiovascular Denies chest pain, Denies shortness of breath - Respiratory Denies cough, Denies 7 - Gastrointestinal Reports as per HPI - Genitourinary Reports urinary retention Past Medical History Past Medical History: Cancer, Hearing Disorder / Deafness, Hypertension, Osteoarthritis (OA), Prostate Disorder, Sleep Apnea/CPAP/BIPAP Additional Past Medical History / Comment(s): uses cpap, prostate cancer, kidney stones, indwelling catheter removed 07/08/21 History of Any Multi-Drug Resistant Organisms: None Reported Past Surgical History: Tonsillectomy Additional Past Surgical History / Comment(s): left knee replacement x 2, bunionectomy rt foot, left ureteroscopy/lithotripsy/ stent- 07/04/21 Past Anesthesia/Blood Transfusion Reactions: No Reported Reaction Past Psychological History: No Psychological Hx Reported Smoking Status: Former smoker Past Alcohol Use History: Rare Additional Past Alcohol Use History / Comment(s): started smoking age 11, smoked 2-3 PPD. quit smoking age 27 Past Drug Use History: None Reported - Past Family History Father Family Medical History: Cancer Additional Family Medical History / Comment(s): BRAIN Mother Family Medical History: Cancer Additional Family Medical History / Comment(s): LUNG Brother(s) Family Medical History: Cancer Additional Family Medical History / Comment(s): PANCREATIC Medications and Allergies Home Medications Medication Instructions Recorded Confirmed Type Meloxicam [Mobic] 7.5 mg PO BID 08/24/20 07/10/21 History hydroCHLOROthiazide [Hydrodiuril] 25 mg PO MOWEFR 08/24/20 07/10/21 History lisinopriL 40 mg PO DAILY 08/24/20 07/10/21 History Gabapentin [Neurontin] 600 mg PO TID 07/02/21 07/10/21 History Ibuprofen [Motrin] 600 mg PO Q8HR PRN 07/02/21 07/10/21 History Metoprolol Tartrate [Lopressor] 25 mg PO DAILY 07/02/21 07/10/21 History Solifenacin Succinate [Vesicare] 10 mg PO DAILY 07/02/21 07/10/21 History Tamsulosin [Flomax] 0.4 mg PO DAILY 07/02/21 07/10/21 History amLODIPine [Norvasc] 5 mg PO DAILY 07/02/21 07/10/21 History Levofloxacin [Levaquin] 500 mg PO DAILY 1 Days #10 tab 07/04/21 07/10/21 Rx Baclofen [Lioresal] 10 mg PO TID PRN #90 tablet 07/12/21 Rx HYDROcodone/APAP 5-325MG [Mcdavid 5] 1 each PO Q4HR PRN #42 tab 07/12/21 Rx Allergies Allergy/AdvReac Type Severity Reaction Status Date / Time Penicillins Allergy Anaphylaxis Verified 07/10/21 06:58 Surgical - Exam Vital Signs Temp Pulse Resp BP Pulse Ox 96.0 F L 69 20 104/61 96 07/10/21 06:57 07/10/21 06:57 07/10/21 06:57 07/10/21 06:57 07/10/21 06:57 - General no distress, moderate pain - Eyes normal ocular movement, no pale - ENT normal nares, normal mucosa - Respiratory normal expansion, normal respiratory effort - Abdomen Abdomen: soft, non tender - Genitourinary Funk draining clear yellow urine Results - Labs 07/12/21 06:25 07/12/21 06:25 Abnormal Lab Results - Last 24 Hours (Table) 07/12/21 07/12/21 Range/Units 06:25 06:25 WBC 13.79 H (4.50-10.00) X 10*3/uL RBC 3.41 L (4.40-5.60) X 10*6/uL Hgb 10.1 L (13.0-17.0) g/dL Hct 32.5 L (39.6-50.0) % MCHC 31.1 L (32.0-37.0) g/dL RDW 14.6 H (11.5-14.5) % Immature Gran # 0.09 H (0.00-0.04) X 10*3/uL Neutrophils # 11.84 H (1.80-7.70) X 10*3/uL Lymphocytes # 0.65 L (0.90-5.00) X 10*3/uL Monocytes # 1.18 H (0.20-1.00) X 10*3/uL Eosinophils # 0.01 L (0.04-0.35) X 10*3/uL Est GFR (CKD-EPI)NonAf 58.8 L (60.0-200.0) Calcium 8.3 L (8.7-10.3) mg/dL Diabetes panel 07/12/21 Range/Units 06:25 Sodium 139 (135-145) mmol/L Potassium 3.8 (3.5-5.5) mmol/L Chloride 103 (96-109) mmol/L Carbon Dioxide 23.8 (20.0-27.5) mmol/L BUN 18.8 (9.0-27.0) mg/dL Creatinine 1.2 (0.6-1.5) mg/dL Glucose 95 (70-110) mg/dL Calcium 8.3 L (8.7-10.3) mg/dL Calcium panel 07/12/21 Range/Units 06:25 Calcium 8.3 L (8.7-10.3) mg/dL Pituitary panel 07/12/21 Range/Units 06:25 Sodium 139 (135-145) mmol/L Potassium 3.8 (3.5-5.5) mmol/L Chloride 103 (96-109) mmol/L Carbon Dioxide 23.8 (20.0-27.5) mmol/L BUN 18.8 (9.0-27.0) mg/dL Creatinine 1.2 (0.6-1.5) mg/dL Glucose 95 (70-110) mg/dL Calcium 8.3 L (8.7-10.3) mg/dL Adrenal panel 07/12/21 Range/Units 06:25 Sodium 139 (135-145) mmol/L Potassium 3.8 (3.5-5.5) mmol/L Chloride 103 (96-109) mmol/L Carbon Dioxide 23.8 (20.0-27.5) mmol/L BUN 18.8 (9.0-27.0) mg/dL Creatinine 1.2 (0.6-1.5) mg/dL Glucose 95 (70-110) mg/dL Calcium 8.3 L (8.7-10.3) mg/dL Assessment and Plan Assessment: 75-year-old male with postoperative urinary retention following spinal fusion. Does have history of urinary retention following ureteroscopy recently. Has obstructive and overactive bladder symptoms at baseline. He is on Flomax 0.4 mg daily. His retention is most likely secondary to poor bladder contractibility an obstructive prostate at baseline. Worsened by his recent surgery, pain and anesthesia. -Keep Funk catheter for 1 week, can follow-up with Dr. Baker for a trial of void -We'll increase Flomax to 0.4 mg twice a day
[2021-07-13] MEDS ORDERED: LEVOFLOXACIN 750 MG TAB PO SCH (09:00)
--- NOTE | 2021-07-13 10:02 | P.PN ---
Progress Note - Text Progress Note Date: 07/13/21 Postoperative day #3 Patient is seen and examined today at bedside. The patient has some pain around the surgical site as expected. He says he gets occasional shooting pain to his right thigh when he coughs but otherwise is doing well. He denies any new weakness. Pain is being controlled with medication. He was unable to void on his own and has a Funk intact. Dr. Fox with neurology has seen him. He says he did have a bowel movement this morning. He is tolerating his diet well. Physical Exam Afebrile with stable vital signs Abdomen is soft nontender. Chest has good excursion deep and space expiration The incision site is clean dry and intact. No erythema there is no purulence. Extremities have not had neurologic change from prior to surgery. He has sustained dorsal flexion plantar flexion and EHL. Funk catheter is intact. Calves and thighs were soft nontender without evidence of DVT. Assessment/Plan Postoperative day #3 status post minimally invasive decompression fusion L4 5 L5-S1 for spondylolisthesis with spinal stenosis and lower extremity radiculopathy Patient is progressing somewhat slowly as expected from the surgery given his age and overall activity level. He has been able to make progress with his mobility but I do think that he will require [facility] post discharge. He saw requiring 3 person assist for transfers and would likely be ready for dispositioning for rehab on Thursday. He is to have his Funk intact for a week as per urology and I would agree with this. He is on Flomax twice daily. With his Funk intact he should continue with prophylactic antibiotics. We will continue to increase the patient's mobilization with therapy. We will continue pain control with oral or IV medications. We'll continue to follow patient closely.
[2021-07-13 10:41] LABS: Basophils % (A) 0 %; Eosinophils % (A) 0 %; HCT 32.3 % (39.0-53.0); HGB 10.4 gm/dL (13.0-17.5); Hypochromasia Slight; Lymphocytes # (A) 0.6 k/uL (1.0-4.8); Lymphocytes % (A) 5 %; MCH 31.7 pg (25.0-35.0); MCHC 32.2 g/dL (31.0-37.0); MCV 98.5 fL (80.0-100.0); Mean Platelet Volume 8.5; Monocytes # (A) 0.7 k/uL (0-1.0); Monocytes % (A) 6 %; Neutrophils # (A) 10.6 k/uL (1.3-7.7); Neutrophils % (A) 86 %; Platelet Count 177 k/uL (150-450); RBC 3.28 m/uL (4.30-5.90); RDW 13.5 % (11.5-15.5); WBC 12.3 k/uL (3.8-10.6)
[2021-07-13] MEDS: HYDROcodone/APAP 5-325MG 1 EACH TAB PO PRN (11:52)
--- NOTE | 2021-07-13 13:37 | P.PN ---
Subjective Progress Note Date: 07/13/21 This is a pleasant 75-year-old male who presents to the hospital for an elective lateral decompression fusion and transforaminal lumbar fusion L4-5 L5 -S1. He is currently postop day #1. Patient follows at the [facility] for primary care. Past medical history includes hypertension, sleep apnea with CPAP use, neuropathy, osteoarthritis, prostate cancer, nephrolithiasis, recently underwent left ureteroscopy with lithotripsy and stenting 06/24/2021 urinary catheter was removed 07/08/2021, left knee replacement x 2, remote history of smoking quit almost 50 years ago. Patient does follow with Dr. Edgar in the office, for now lomeli catheter has been reinserted. Labs reviewed show white count 12.1, hemog lobin 10.2, platelet count 208. Covid was not detected. Patient is afebrile, heart rate 91 sinus rhythm, blood pressure in the lower side at 96/62 and 94% on 2 L nasal cannula. Patient is on antibiotics in the form of IV clindamycin. Patient denies BM, Denies flatus. Had one episode of emesis this morning, states it was brown in color. 07/12/2021 Patient evaluated today resting in bed. States he is concerned with the amount of pain that he is having in his currently unable to tolerate ambulation. Has not had a bowel movement since surgery but states that he is passing gas. Abdomen is soft nontender we will give a dulcolax suppository in addition patient is on Senokot daily as well as milk of magnesia as needed. Blood pressure on the lower side today at 88/54 patient did receive his Toprol-XL this morning and again blood pressure recheck 81/46. We did stop the Toprol will continue to monitor blood pressure. Planning for voiding trial today. He is afebrile, heart rate 93, 95% on 2 L nasal cannula. Labs today show white count 13.79, hemoglobin 10.1, sodium 139, potassium 3.8. 07/13/2021 Patient today working with physical therapy, family at the bedside. Complains of significant pain especially with movement and ambulation attempts, will require rehab on discharge most likely Thursday. Currently denies any chest pain chest pressure palpitations, dizziness or lightheadedness. Patient's had 2 bowel movements. Continues on milk of magnesia as needed, and senna daily. Pain management per primary has a receiving [place] every 4 patient does have Dilaudid ordered but has not been administered. Blood pressure improve 97/62, afebrile, heart rate 83, 94% on 2 L nasal cannula. Lungs are clear to auscultation he is using his incentive spirometer. We will continue to hold his metoprolol and monitor blood pressure. Reevaluation by urology and patient indwelling catheter has been reinserted and patient will keep for one week and follow-up with urology in the office. Review of Systems Constitutional: Denied any fatigue denied any fever. Cardio vascular: denied any chest pain, palpitations Gastrointestinal denied any nausea vomiting Pulmonary: Denied any shortness of breath cough Neurologic denied any new focal deficits All inpatient medications were reviewed and appropriate changes in these medications as dictated in the interval history and assessment and plan. PHYSICAL EXAMINATION: GENERAL: The patient is alert and oriented x3, not in any acute distress. Well developed, well nourished. HEENT: Pupils are round and equally reacting to light. EOMI. No scleral icterus. No conjunctival pallor. Normocephalic, atraumatic. No pharyngeal erythema. No t hyromegaly. CARDIOVASCULAR: S1 and S2 present. No murmurs, rubs, or gallops. PULMONARY: Chest is clear to auscultation, no wheezing or crackles. ABDOMEN: Soft, nontender, nondistended, normoactive bowel sounds. No palpable organomegaly. MUSCULOSKELETAL: No joint swelling or deformity. EXTREMITIES: No cyanosis, clubbing, or pedal edema. +2 pulses NEUROLOGICAL: Gross neurological examination did not reveal any focal deficits. SKIN: No rashes. Surgical dressing intact Assessment and plan Assessment Postop day #4 lateral decompression fusion transforaminal lumbar fusion Leukocytosis, most likely reactive secondary to surgery improving History of hypertension currently hypotensive we'll continue to hold blood pressure medications postoperatively and monitor Neuropathy, resume neurontin Sleep apnea with CPAP History kidney stones with recent lithotripsy and stent placement earlier this m onth, indwelling catheter removed and reinserted postoperatively Obesity GI prophylaxis pepcid DVT prophylaxis as per primary Full code Plan Monitor blood pressure Encourage IS PT/OT consult - patient will need [facility] on rehab Keep [facility] on discharge F/U urology on discharge Thank you kindly for this consultation we will continue to follow along with patient this hospitalization. Objective - Vital Signs Vital signs: Vital Signs Temp 97.8 F 07/13/21 06:55 Pulse 83 07/13/21 07:11 Resp 20 07/13/21 02:00 BP 97/62 07/13/21 07:11 Pulse Ox 94 L 07/13/21 06:55 Intake & Output 07/12/21 07/13/21 07/13/21 18:59 06:59 18:59 Intake Total 592 180 Output Total 300 900 Balance 292 -900 180 Intake: Oral 592 180 Output: Urine 300 900 Other: Voiding Method Indwelling Catheter Indwelling Catheter - Labs CBC & Chem 7: 07/13/21 10:28 07/12/21 06:25 Labs: Abnormal Lab Results - Last 24 Hours (Table) 07/12/21 07/12/21 Range/Units 06:25 06:25 WBC 13.79 H (4.50-10.00) X 10*3/uL RBC 3.41 L (4.40-5.60) X 10*6/uL Hgb 10.1 L (13.0-17.0) g/dL Hct 32.5 L (39.6-50.0) % MCHC 31.1 L (32.0-37.0) g/dL RDW 14.6 H (11.5-14.5) % Immature Gran # 0.09 H (0.00-0.04) X 10*3/uL Neutrophils # 11.84 H (1.80-7.70) X 10*3/uL Lymphocytes # 0.65 L (0.90-5.00) X 10*3/uL Monocytes # 1.18 H (0.20-1.00) X 10*3/uL Eosinophils # 0.01 L (0.04-0.35) X 10*3/uL Est GFR (CKD-EPI)NonAf 58.8 L (60.0-200.0) Calcium 8.3 L (8.7-10.3) mg/dL
[2021-07-13] MEDS ORDERED: SODIUM CHLORIDE 0.9% 1,000 ML IV ONE (13:46)
[2021-07-13 14:26] LABS: Amorphous Sediment,Urine Rare /hpf; Appearance,Urine Cloudy (Clear); Bacteria,Urine Moderate /hpf; Bilirubin,Urine Negative (Negative); Blood,Urine Moderate (Negative); Color,Urine Yellow; Glucose,Urine (UA) Negative (Negative); Ketones,Urine Negative (Negative); Leukocyte Esterase,Urine Large (Negative); Mucus,Urine Few /hpf; Nitrite,Urine Negative (Negative); Protein,Urine 2+ (Negative); RBC,Urine 53 /hpf (0-5); Specific Gravity,Urine 1.019 (1.001-1.035); Squamous Epithelial Cell,Urine <1 /hpf (0-4); Urobilinogen,Urine <2.0 mg/dL (<2.0); WBC,Urine >182 /hpf (0-5)
[2021-07-13 14:47] LABS: African American GFR (CKD) 51 (>60 ml/min/1.73 sqM); Anion Gap 7 mmol/L; Blood Urea Nitrogen 27 mg/dL (9-20); Calcium 7.5 mg/dL (8.4-10.2); Carbon Dioxide 24 mmol/L (22-30); Chloride 104 mmol/L (98-107); Glucose 113 mg/dL (74-99); Non-African American GFR(CKD) 44 (>60 ml/min/1.73 sqM); Potassium 3.9 mmol/L (3.5-5.1); Sodium 135 mmol/L (137-145)
[2021-07-13] MEDS: CYCLOBENZAPRINE 10 MG TAB PO PRN (23:28)
[2021-07-13] MEDS: ONDANSETRON 4 MG/2 ML VIAL IVP PRN (23:28)
[2021-07-14] MEDS: LACTATED RINGERS 1,000 ML IV SCH (07:37)
[2021-07-14] MEDS: ONDANSETRON 4 MG/2 ML VIAL IVP PRN (07:40)
[2021-07-14] MEDS: TROSPIUM CHLORIDE 20 MG TABLET PO SCH ×2 (08:53→21:45)
[2021-07-14] MEDS: GABAPENTIN 300 MG CAP PO SCH ×3 (08:53→21:45)
[2021-07-14] MEDS: SENNOSIDES-DOCUSATE SODIUM 1 EACH TAB PO SCH (08:53)
[2021-07-14] MEDS: TAMSULOSIN 0.4 MG CAP.ER.24H PO SCH ×2 (08:53→21:45)
[2021-07-14] MEDS: FAMOTIDINE 20 MG TAB PO SCH (08:53)
[2021-07-14] MEDS: PANTOPRAZOLE 40 MG TABLET PO SCH ×2 (08:53→16:35)
[2021-07-14] MEDS: SODIUM CHLORIDE 0.9% 1,000 ML IV SCH ×2 (08:54→14:56)
--- NOTE | 2021-07-14 09:46 | XR ---
EXAMINATION TYPE: XR chest 2V DATE OF EXAM: 07/14/2021 COMPARISON: Chest x-ray 06/28/2021 HISTORY: Hypoxia TECHNIQUE: Frontal and lateral views of the chest are obtained. FINDINGS: There is elevation of left hemidiaphragm, gas-distended stomach is present. Patchy basilar density is present along the hemidiaphragm. Patient is rotated. There is no evident pneumothorax. He art size may be accentuated due to technique. Bones are stable. IMPRESSION: Correlate for basilar atelectasis versus pneumonia, expiratory rotated exam, follow-up s uggested
[2021-07-14] MEDS: METOPROLOL TARTRATE 25 MG TAB PO SCH (09:53)
[2021-07-14] MEDS: CLINDAMYCIN 900 MG in DEXTROSE 5% IN WATER 50 ML IVPB SCH ×2 (09:53)
[2021-07-14 09:54] LABS: Glucose,Whole Blood 154 mg/dL (75-99)
[2021-07-14 11:06] LABS: African American GFR (CKD) 73 (>60 ml/min/1.73 sqM); Anion Gap 6 mmol/L; Blood Urea Nitrogen 20 mg/dL (9-20); Calcium 7.4 mg/dL (8.4-10.2); Carbon Dioxide 24 mmol/L (22-30); Chloride 107 mmol/L (98-107); Glucose 136 mg/dL (74-99); Non-African American GFR(CKD) 63 (>60 ml/min/1.73 sqM); Potassium 3.7 mmol/L (3.5-5.1); Sodium 137 mmol/L (137-145)
[2021-07-14 11:14] LABS: HCT 30.3 % (39.0-53.0); HGB 9.7 gm/dL (13.0-17.5); Hypochromasia Slight; MCH 31.2 pg (25.0-35.0); MCHC 31.9 g/dL (31.0-37.0); MCV 97.8 fL (80.0-100.0); Mean Platelet Volume 7.5; Platelet Count 206 k/uL (150-450); WBC 11.1 k/uL (3.8-10.6)
[2021-07-14] MEDS: LEVOFLOXACIN 750 MG TAB PO SCH (11:49)
[2021-07-14 12:08] LABS: Lymphocytes # (M) 0.33 k/uL (1.0-4.8); Monocytes # (M) 0.89 k/uL (0-1.0); Neutrophils # (M) 9.88 k/uL (1.3-7.7); Neutrophils % (M) 89 %; Nucleated Red Blood Cells 0 /100 WBC (0-0); Total Cells Counted 100
[2021-07-14 12:09] LABS: Anisocytosis (M) Present; Poikilocytosis (M) Present; Toxic Granulation Present
[2021-07-14] MEDS: ACETAMINOPHEN TAB 325 MG TAB PO PRN (12:49)
--- NOTE | 2021-07-14 13:03 | P.PN ---
Progress Note - Text Progress Note Date: 07/14/21 Postoperative day #4 Patient is seen and examined today at bedside. His is present with him at bedside as well. He says he is feeling better today and moving his legs easier. The patient has some pain around the surgical site but is only requiring Tylenol so far today for his pain. He still having seen and difficulty trying to get in and out of bed and requiring significant help. He denies any nausea or vomiting Physical Exam Afebrile with stable vital signs Abdomen is soft nontender. Chest has good excursion deep and space expiration The incision site is clean dry and intact. No erythema there is no purulence. Extremities have not had neurologic change from prior to surgery. He has sustained dorsal flexion and EHL. He is able lift his legs up off the bed independently today he says that was much more difficult yesterday. Calves and thighs were soft nontender without evidence of DVT. Assessment/Plan Postoperative day #4 status post no invasive decompression fusion L4 5 L5-S1 for spondylolisthesis with spinal stenosis low back pain and lower extremity radiculopathy Patient is progressing as expected from the surgery. He still require significant help with his mobility and I think that he requires detention after discharge. We will likely plan for transfer to detention tomorrow on Thursday. He seems to be stabilizing his blood pressure and his pulse with his appropriate medications and medical management. We will continue to increase the patient's mobilization with therapy. We will continue pain control with oral or IV medications. We'll continue to follow patient closely.
--- NOTE | 2021-07-14 13:43 | P.PN ---
Subjective Progress Note Date: 07/14/21 This is a pleasant 75-year-old male who presents to the hospital for an elective lateral decompression fusion and transforaminal lumbar fusion L4-5 L5 -S1. He is currently postop day #1. Patient follows at the [facility] for primary care. Past medical history includes hypertension, sleep apnea with CPAP use, neuropathy, osteoarthritis, prostate cancer, nephrolithiasis, recently underwent left ureteroscopy with lithotripsy and stenting 06/24/2021 urinary catheter was removed 07/08/2021, left knee replacement x 2, remote history of smoking quit almost 50 years ago. Patient does follow with Dr. Edgar in the office, for now lomeli catheter has been reinserted. Labs reviewed show white count 12.1, hemog lobin 10.2, platelet count 208. Covid was not detected. Patient is afebrile, heart rate 91 sinus rhythm, blood pressure in the lower side at 96/62 and 94% on 2 L nasal cannula. Patient is on antibiotics in the form of IV clindamycin. Patient denies BM, Denies flatus. Had one episode of emesis this morning, states it was brown in color. 07/12/2021 Patient evaluated today resting in bed. States he is concerned with the amount of pain that he is having in his currently unable to tolerate ambulation. Has not had a bowel movement since surgery but states that he is passing gas. Abdomen is soft nontender we will give a dulcolax suppository in addition patient is on Senokot daily as well as milk of magnesia as needed. Blood pressure on the lower side today at 88/54 patient did receive his Toprol-XL this morning and again blood pressure recheck 81/46. We did stop the Toprol will continue to monitor blood pressure. Planning for voiding trial today. He is afebrile, heart rate 93, 95% on 2 L nasal cannula. Labs today show white count 13.79, hemoglobin 10.1, sodium 139, potassium 3.8. 07/13/2021 Patient today working with physical therapy, family at the bedside. Complains of significant pain especially with movement and ambulation attempts, will require rehab on discharge most likely Thursday. Currently denies any chest pain chest pressure palpitations, dizziness or lightheadedness. Patient's had 2 bowel movements. Continues on milk of magnesia as needed, and senna daily. Pain management per primary has a receiving [place] every 4 patient does have Dilaudid ordered but has not been administered. Blood pressure improve 97/62, afebrile, heart rate 83, 94% on 2 L nasal cannula. Lungs are clear to auscultation he is using his incentive spirometer. We will continue to hold his metoprolol and monitor blood pressure. Reevaluation by urology and patient indwelling catheter has been reinserted and patient will keep for one week and follow-up with urology in the office. 07/14/2021 Patient evaluated today resting in bed. He does appear diaphoretic and color is pale. Patient was hypotensive yesterday with blood pressures in the 60/40s. Metoprolol was again placed on hold and patient did recieve a 1L fluid bolus. Blood pressures improved to 110/70s. Lactic acid checked was 1.3. Patient now with some tachycardia, which stable to resume metoprolol blood pressures have improved. EKG was completed with shows sinus tach with PACs, no ST or T wave abnormalities. Patient denies any chest pain, chest pressure or palpitations. Blood sugar normal at 136. Patient had a increased creatinine yesterday 1.53 probably due to the hypotension. Today labs show improvement, white count 11.1, hemoglobin 9.7, sodium 137, potassium 3.7, BUN 20, creatinine 1.14, calcium 7.4. As patient had urinary catheter discontinued and reinserted twice this past week related to surgeries we checked a urinalysis, there was 2+ protein, moderate blood, large leukocyte esterase, urine WBC greater than 182 with moderate bacteria. This could be related to an acute UTI, however patient has been on antibiotics in the form of Clindamycin and Levaquin and his white count continues to improve. Urine culture is pending. Urology is following the patient. Chest x-ray today reviewed; correlate with basilar atelectasis versus pneumonia, x-ray rotated exam follow-up suggested. Again patient's is on antibiotics which could cover for a possible pneumonia, and his white count is improving. He is not very active and needs encouragement to utilize his incentive spirometer postsurgically. No cough or shortness of breath reported and lungs are clear but diminished. Review of Systems Constitutional: Denied any fatigue denied any fever. Cardio vascular: denied any chest pain, palpitations Gastrointestinal: denied any nausea vomiting, denies diarrhea, no BM but passing gas. Pulmonary: Denied any shortness of breath, cough Neurologic denied any new focal deficits All inpatient medications were reviewed and appropriate changes in these medications as dictated in the interval history and assessment and plan. PHYSICAL EXAMINATION: GENERAL: The patient is alert and oriented x3, not in any acute distress. Well developed, well nourished. Obese HEENT: Pupils are round and equally reacting to light. EOMI. No scleral icterus. No conjunctival pallor. Normocephalic, atraumatic. No pharyngeal erythema. No thyromegaly. CARDIOVASCULAR: S1 and S2 present. No murmurs, rubs, or gallops. PULMONARY: Chest is clear to auscultation, no wheezing or crackles. Diminished. ABDOMEN: Soft, nontender, nondistended, normoactive bowel sounds. No palpable organomegaly. MUSCULOSKELETAL: No joint swelling or deformity. EXTREMITIES: No cyanosis, clubbing, or pedal edema. +2 pulses NEUROLOGICAL: Gross neurological examination did not reveal any focal deficits. SKIN: No rashes. Surgical dressing intact. Assessment and plan Assessment Postop day #4 lateral decompression fusion transforaminal lumbar fusion Leukocytosis, most likely reactive secondary to surgery improving Basilar atelectasis found on imaging, no clinical evidence for pneumonia as white count improving, continue to encourage incentive spirometry and ambulation postsurgically History of hypertension currently hypotensive, patient responded well to a 1L fluid bolus, blood pressures have normalized. Hypotension probably related to recent surgery under anesthesia with use of narcotics for pain management. Patient also on multiple blood pressure medications at home which are on hold. Did resume metoprolol today as blood pressure stable and patient is experiencing some tachycardia. Neuropathy, resume neurontin Sleep apnea with CPAP History kidney stones with recent lithotripsy and stent placement earlier this month, indwelling catheter removed and reinserted postoperatively Obesity GI prophylaxis pepcid DVT prophylaxis as per primary Full code Plan Monitor blood pressure Encourage IS, ambulation Resume metoprolol, hold lisinopril, hydrochlorothiazide, amlodipine Continue oral antibiotics PT/OT consult - patient will need [facility] on rehab Keep IDC on discharge F/U urology on discharge Thank you kindly for this consultation we will continue to follow along with patient this hospitalization. Objective - Vital Signs Vital signs: Vital Signs Temp 98.7 F 07/14/21 09:08 Pulse 115 H 07/14/21 09:16 Resp 17 07/14/21 02:00 BP 117/75 07/14/21 09:02 Pulse Ox 94 L 07/14/21 09:02 Intake & Output 07/13/21 07/14/21 07/14/21 18:59 06:59 18:59 Intake Total 2310 Output Total 400 900 Balance 1910 -900 Intake: IV 1750 Sodium Chloride 0.9% 1, 1000 000 ml @ 500 mls/hr IV . Q2H ONE Rx#:[id number] Sodium Chloride 0.9% 1, 750 000 ml @ 75 mls/hr IV . [id number] SAGE Rx#:[id number] Oral 560 Output: Urine 400 900 Uretheral (Lomeli) 400 Other: Voiding Method Indwelling Catheter Indwelling Catheter Indwelling Catheter - Labs CBC & Chem 7: 07/14/21 10:33 07/14/21 10:33 Labs: Abnormal Lab Results - Last 24 Hours (Table) 07/13/21 07/13/21 07/14/21 Range/Units 14:05 14:06 09:52 WBC (3.8-10.6) k/uL RBC (4.30-5.90) m/uL Hgb (13.0-17.5) gm/dL Hct (39.0-53.0) % Neutrophils # (Manual) (1.3-7.7) k/uL Lymphocytes # (Manual) (1.0-4.8) k/uL Sodium 135 L (137-145) mmol/L BUN 27 H (9-20) mg/dL Creatinine 1.53 H (0.66-1.25) mg/dL Glucose 113 H (74-99) mg/dL POC Glucose (mg/dL) 154 H (75-99) mg/dL Calcium 7.5 L (8.4-10.2) mg/dL Urine Protein 2+ H (Negative) Urine Blood Moderate H (Negative) Ur Leukocyte Esterase Large H (Negative) Urine RBC 53 H (0-5) /hpf Urine WBC >182 H (0-5) /hpf Urine WBC Clumps Few H (None) /hpf Amorphous Sediment Rare H (None) /hpf Urine Bacteria Moderate H (None) /hpf Urine Mucus Few H (None) /hpf 07/14/21 07/14/21 Range/Units 10:33 10:33 WBC 11.1 H (3.8-10.6) k/uL RBC 3.10 L (4.30-5.90) m/uL Hgb 9.7 L (13.0-17.5) gm/dL Hct 30.3 L (39.0-53.0) % Neutrophils # (Manual) 9.88 H (1.3-7.7) k/uL Lymphocytes # (Manual) 0.33 L (1.0-4.8) k/uL Sodium (137-145) mmol/L BUN (9-20) mg/dL Creatinine (0.66-1.25) mg/dL Glucose 136 H (74-99) mg/dL POC Glucose (mg/dL) (75-99) mg/dL Calcium 7.4 L (8.4-10.2) mg/dL Urine Protein (Negative) Urine Blood (Negative) Ur Leukocyte Esterase (Negative) Urine RBC (0-5) /hpf Urine WBC (0-5) /hpf Urine WBC Clumps (None) /hpf Amorphous Sediment (None) /hpf Urine Bacteria (None) /hpf Urine Mucus (None) /hpf Microbiology - Last 24 Hours (Table) 07/13/21 14:06 Urine Culture - Preliminary Urine,Voided
[2021-07-14] MEDS: CALCIUM CARBONATE 500 MG CHEWABLE PO PRN (14:04)
[2021-07-14] MEDS: MAGNESIUM HYDROXIDE 2,400 MG/10 ML CUP PO PRN (14:10)
[2021-07-14] MEDS: CLINDAMYCIN 150 MG CAP PO SCH ×2 (16:35→21:45)
[2021-07-15] MEDS: ONDANSETRON 4 MG/2 ML VIAL IVP PRN (03:23)
[2021-07-15 08:16] VITALS: BP 102/68; PULSE 89; RESP 17; TEMP 99.9
[2021-07-15] MEDS: LACTATED RINGERS 1,000 ML IV SCH (08:22)
[2021-07-15] MEDS: METOPROLOL TARTRATE 25 MG TAB PO SCH (08:50)
[2021-07-15] MEDS: GABAPENTIN 300 MG CAP PO SCH (08:50)
[2021-07-15] MEDS: CLINDAMYCIN 150 MG CAP PO SCH (08:50)
[2021-07-15] MEDS: SENNOSIDES-DOCUSATE SODIUM 1 EACH TAB PO SCH (08:50)
[2021-07-15] MEDS: MAGNESIUM HYDROXIDE 2,400 MG/10 ML CUP PO PRN (08:50)
[2021-07-15] MEDS: PANTOPRAZOLE 40 MG TABLET PO SCH (08:51)
[2021-07-15] MEDS: SODIUM CHLORIDE 0.9% 1,000 ML IV SCH (08:51)
[2021-07-15] MEDS: TAMSULOSIN 0.4 MG CAP.ER.24H PO SCH (08:51)
[2021-07-15] MEDS: FAMOTIDINE 20 MG TAB PO SCH (08:51)
[2021-07-15] MEDS: LEVOFLOXACIN 750 MG TAB PO SCH (08:51)
[2021-07-15 09:56] LABS: Basophils # (A) 0.02 X 10*3/uL (0.00-0.10); Basophils % (A) 0.2 %; Eosinophils # (A) 0.07 X 10*3/uL (0.04-0.35); Eosinophils % (A) 0.6 %; HCT 30.4 % (39.6-50.0); HGB 9.3 g/dL (13.0-17.0); Immature Grans, Automated 0.6 %; Lymphocytes # (A) 0.66 X 10*3/uL (0.90-5.00); Lymphocytes % (A) 5.6 %; MCH 29.3 pg (27.0-32.0); MCHC 30.6 g/dL (32.0-37.0); MCV 95.9 fL (80.0-97.0); Mean Platelet Volume 10.3 fL (9.5-12.2); Monocytes # (A) 1.13 X 10*3/uL (0.20-1.00); Monocytes % (A) 9.5 %; NRBC Per 100 WBC 0 /100 WBCS (0.0-0.0); Neutrophils % (A) 83.5 %; Platelet Count 218 X 10*3/uL (140-440); RBC 3.17 X 10*6/uL (4.40-5.60); RDW 14.4 % (11.5-14.5); WBC 11.85 X 10*3/uL (4.50-10.00)
[2021-07-15 10:10] LABS: Anion Gap 11.4 mmol/L (10.00-18.00); Calcium 8.2 mg/dL (8.7-10.3); Carbon Dioxide 22.6 mmol/L (20.0-27.5); Non-African American GFR(CKD) 73.3 (60.0-200.0); Potassium 4.1 mmol/L (3.5-5.5)
[2021-07-15] MEDS ORDERED: NA PHOS,M-B/NA PHOS,DI-BA 133 ML ENEMA RECTAL STA (10:40)
[2021-07-15] MEDS: TROSPIUM CHLORIDE 20 MG TABLET PO SCH ×2 (10:47→11:00)
--- NOTE | 2021-07-15 12:27 | P.PN ---
Subjective Progress Note Date: 07/15/21 This is a pleasant 75-year-old male who presents to the hospital for an elective lateral decompression fusion and transforaminal lumbar fusion L4-5 L5 -S1. He is currently postop day #1. Patient follows at the [facility] for primary care. Past medical history includes hypertension, sleep apnea with CPAP use, neuropathy, osteoarthritis, prostate cancer, nephrolithiasis, recently underwent left ureteroscopy with lithotripsy and stenting 06/24/2021 urinary catheter was removed 07/08/2021, left knee replacement x 2, remote history of smoking quit almost 50 years ago. Patient does follow with Dr. Edgar in the office, for now lomeli catheter has been reinserted. Labs reviewed show white count 12.1, hemog lobin 10.2, platelet count 208. Covid was not detected. Patient is afebrile, heart rate 91 sinus rhythm, blood pressure in the lower side at 96/62 and 94% on 2 L nasal cannula. Patient is on antibiotics in the form of IV clindamycin. Patient denies BM, Denies flatus. Had one episode of emesis this morning, states it was brown in color. 07/12/2021 Patient evaluated today resting in bed. States he is concerned with the amount of pain that he is having in his currently unable to tolerate ambulation. Has not had a bowel movement since surgery but states that he is passing gas. Abdomen is soft nontender we will give a dulcolax suppository in addition patient is on Senokot daily as well as milk of magnesia as needed. Blood pressure on the lower side today at 88/54 patient did receive his Toprol-XL this morning and again blood pressure recheck 81/46. We did stop the Toprol will continue to monitor blood pressure. Planning for voiding trial today. He is afebrile, heart rate 93, 95% on 2 L nasal cannula. Labs today show white count 13.79, hemoglobin 10.1, sodium 139, potassium 3.8. 07/13/2021 Patient today working with physical therapy, family at the bedside. Complains of significant pain especially with movement and ambulation attempts, will require rehab on discharge most likely Thursday. Currently denies any chest pain chest pressure palpitations, dizziness or lightheadedness. Patient's had 2 bowel movements. Continues on milk of magnesia as needed, and senna daily. Pain management per primary has a receiving [place] every 4 patient does have Dilaudid ordered but has not been administered. Blood pressure improve 97/62, afebrile, heart rate 83, 94% on 2 L nasal cannula. Lungs are clear to auscultation he is using his incentive spirometer. We will continue to hold his metoprolol and monitor blood pressure. Reevaluation by urology and patient indwelling catheter has been reinserted and patient will keep for one week and follow-up with urology in the office. 07/14/2021 Patient evaluated today resting in bed. He does appear diaphoretic and color is pale. Patient was hypotensive yesterday with blood pressures in the 60/40s. Metoprolol was again placed on hold and patient did recieve a 1L fluid bolus. Blood pressures improved to 110/70s. Lactic acid checked was 1.3. Patient now with some tachycardia, which stable to resume metoprolol blood pressures have improved. EKG was completed with shows sinus tach with PACs, no ST or T wave abnormalities. Patient denies any chest pain, chest pressure or palpitations. Blood sugar normal at 136. Patient had a increased creatinine yesterday 1.53 probably due to the hypotension. Today labs show improvement, white count 11.1, hemoglobin 9.7, sodium 137, potassium 3.7, BUN 20, creatinine 1.14, calcium 7.4. As patient had urinary catheter discontinued and reinserted twice this past week related to surgeries we checked a urinalysis, there was 2+ protein, moderate blood, large leukocyte esterase, urine WBC greater than 182 with moderate bacteria. This could be related to an acute UTI, however patient has been on antibiotics in the form of Clindamycin and Levaquin and his white count continues to improve. Urine culture is pending. Urology is following the patient. Chest x-ray today reviewed; correlate with basilar atelectasis versus pneumonia, x-ray rotated exam follow-up suggested. Again patient's is on antibiotics which could cover for a possible pneumonia, and his white count is improving. He is not very active and needs encouragement to utilize his incentive spirometer postsurgically. No cough or shortness of breath reported and lungs are clear but diminished. 07/15/2021 Patient evaluated today sitting up in bed. Blood pressure has stabilized currently 103/67, plan is for discharge to rehab, stable from a medical perspective. Patient will continue to hold all blood pressure medications with the exception of metoprolol 25 mg po daily to avoid tachycardia. Patient clinically better today, his color has improved from yesterday. No acute events overnight. Patient is having BMs however hard time passing stool through states it is hard, giving a small amount of fleet enema today to soften stool. Otherwise he should continue on appropriate bowel regimine on discharge is to be discharged on [place] for pain management. Indwelling catheter in place complications, urine clear yellow, patient to continue on prophylactic antibiotics in the form of Cleocin and Levaquin and follow up with urology in 1 week. White count stable 11.5, reactive, hemoglobin stable 9.3. Chemistry pa larry within normal limits, sodium 138, potassium 4.1, BUN 18, creatinine 1.0, glucose 130s. Recommend following up with an A1c outpatient. Urine culture negative. Covid negative. Review of Systems Constitutional: Denied any fatigue denied any fever. Cardio vascular: denied any chest pain, palpitations Gastrointestinal: denied any nausea vomiting, denies diarrhea, passing gas, BMs Pulmonary: Denied any shortness of breath, cough Neurologic denied any new focal deficits All inpatient medications were reviewed and appropriate changes in these medications as dictated in the interval history and assessment and plan. PHYSICAL EXAMINATION: GENERAL: The patient is alert and oriented x3, not in any acute distress. Well developed, well nourished. Obese HEENT: Pupils are round and equally reacting to light. EOMI. No scleral icterus. No conjunctival pallor. Normocephalic, atraumatic. No pharyngeal erythema. No thyromegaly. CARDIOVASCULAR: S1 and S2 present. No murmurs, rubs, or gallops. PULMONARY: Chest is clear to auscultation, no wheezing or crackles. Diminished. ABDOMEN: Soft, nontender, nondistended, normoactive bowel sounds. No palpable organomegaly. MUSCULOSKELETAL: No joint swelling or deformity. EXTREMITIES: No cyanosis, clubbing, or pedal edema. +2 pulses NEUROLOGICAL: Gross neurological examination did not reveal any focal deficits. SKIN: No rashes. Surgical dressing intact. Assessment and plan Assessment Postop day #5 lateral decompression fusion transforaminal lumbar fusion Leukocytosis, most likely reactive secondary to surgery stable Basilar atelectasis found on imaging, no clinical evidence for pneumonia as white count improving, continue to encourage incentive spirometry and ambulation postsurgically History of hypertension currently pressures on the softer side, Hypotension probably related to recent surgery under anesthesia with use of narcotics for pain management. Patient also on multiple blood pressure medications at home which are on hold. Did resume metoprolol which can continue on discharge. Neuropathy, resume neurontin Sleep apnea with CPAP History kidney stones with recent lithotripsy and stent placement earlier this month, indwelling catheter removed and reinserted postoperatively Obesity GI prophylaxis pepcid DVT prophylaxis as per primary Full code Plan Encourage IS, ambulation Resume metoprolol, hold lisinopril, hydrochlorothiazide, amlodipine on discharge Continue oral antibiotics Keep IDC on discharge F/U urology on discharge Prophylactic antibiotics on discharge for recent urologic intervention, will defer management to urology outpatient for this. Repeat CBC in 2 days. Cleared medically for DC to rehab today. Thank you kindly for this consultation we will continue to follow along with patient this hospitalization. Objective - Vital Signs Vital signs: Vital Signs Temp 99.9 F H 07/15/21 08:00 Pulse 89 07/15/21 08:00 Resp 17 07/15/21 08:00 BP 102/68 07/15/21 08:00 Pulse Ox 96 07/15/21 08:00 Intake & Output 07/14/21 07/15/21 07/15/21 18:59 06:59 18:59 Intake Total 1000 Output Total 1200 Balance 1000 -1200 Weight 132.903 kg Intake: Oral 1000 Output: Urine 1200 Other: Voiding Method Indwelling Catheter Indwelling Catheter Indwelling Catheter - Labs CBC & Chem 7: 07/15/21 04:55 07/15/21 04:55 Labs: Abnormal Lab Results - Last 24 Hours (Table) 07/15/21 07/15/21 Range/Units 04:55 04:55 WBC 11.85 H (4.50-10.00) X 10*3/uL RBC 3.17 L (4.40-5.60) X 10*6/uL Hgb 9.3 L (13.0-17.0) g/dL Hct 30.4 L (39.6-50.0) % MCHC 30.6 L (32.0-37.0) g/dL Immature Gran # 0.07 H (0.00-0.04) X 10*3/uL Neutrophils # 9.90 H (1.80-7.70) X 10*3/uL Lymphocytes # 0.66 L (0.90-5.00) X 10*3/uL Monocytes # 1.13 H (0.20-1.00) X 10*3/uL Glucose 133 H (70-110) mg/dL Calcium 8.2 L (8.7-10.3) mg/dL Microbiology - Last 24 Hours (Table) 07/13/21 14:06 Urine Culture - Final Urine,Voided
--- NOTE | 2021-07-15 12:54 | P.DS ---
Providers Date of admission: 07/12/21 12:13 Expected date of discharge: 07/15/21 Attending physician: Diana Pritchard Consults: 07/10/21 12:46 Consult Physician Routine Consulting Provider: Zhane Romo Consult Reason/Comments: medical management Do you want consulting provider notified?: Yes 07/12/21 17:19 Consult Physician Routine Consulting Provider: Marcello Edgar Consult Reason/Comments: urinary retention, recent procedure with Dr. Edgar Do you want consulting provider notified?: Yes Primary care physician: [facility] Clinic - Discharge Diagnosis(es) (1) S/P lumbar fusion Current Visit: Yes Status: Acute (2) Low back pain Current Visit: Yes Status: Acute (3) Spondylolisthesis, lumbar region Current Visit: Yes Status: Acute (4) Radiculopathy with lower extremity symptoms Current Visit: Yes Status: Acute (5) Urinary retention Current Visit: Yes Status: Acute (6) History of prostate cancer Current Visit: Yes Status: Acute (7) Hypertension Current Visit: Yes Status: Acute (8) Obesity Current Visit: Yes Status: Acute Hospital Course: This is a pleasant 75-year-old male who presented with low back pain, lumbar spondylolisthesis, and lower extremity radiculopathy who failed outpatient conservative therapy. He was admitted for an L4-5 and L5-S1 minimally invasive posterior lateral decompression and fusion with transforaminal lumbar interbody fusion. Patient has been progressing slowly postoperatively. He had some difficulty with pain control early postoperatively but this has been improving. He does continue to have significant difficulty with mobility. He feels generally weak in his bilateral lower extremities. He states he feels he is ready for discharge to a rehabilitation facility today. He is planning to be discharged to [facility]. He has been able to transfer to a bedside chair with assistance. He is currently having a bowel movement. Patient denies any specific lower extremity radiculopathy. His low back pain is well-controlled. He has undergone surgical intervention with urology last week. He has had difficulty urinary retention. He has been seen by urology during his admission to the hospital following surgery for his lumbar spine. He has had further urinary retention. Funk catheter is intact. Urology is requesting this Funk catheter stay intact over the next week. Nursing states neurology has seen the patient and has cleared the patient for discharge with plans to have the patient follow-up in the outpatient setting. Condition on day of discharge stable. Patient will be discharged home a rehabilitation facility. [facility] [place] Patient currently denies any nausea, vomiting, fever, or chills. Patient is eating without difficulty. Patient may shower Optifoam dressing intact. Patient may remove Optifoam dressing in 3 days and shower without a dressing at that time. Patient should refrain from driving until at least after their first follow-up appointment in the office. Patient should avoid excessive bending, lifting, and twisting; no lifting greater than 10 pounds. We did discuss patient will be cleared for discharge from an orthopedic standpoint. Patient will need clearance by medicine prior to discharge. We'll plan for medicine to complete the med rec prior to discharge. Nursing states patient has been cleared by urology. MAPS has been reviewed on 07/13/2021, with an Overall Overdose Risk Score of 200. An "Opiod Start Talking" Form has been signed and placed in the patient's chart. A prescription has been written for [place] 5 mg/325 mg 1 tab every 4 hours as needed for pain, dispense #42. Patient is also given a prescription for baclofen 10 mg 1 tab 3 times a day as needed for muscle spasms, dispensed #90. He should avoid anti-inflammatory medications including Mobic and ibuprofen over the next 6 weeks postoperatively. Patient's other medical diagnoses include postoperative urinary retention, history of prostate cancer, hypertension, obesity, and recent surgical intervention with urology. Physical Exam on day of discharge: Status post surgical day number 5 Patient is awake, alert, and oriented 3 Vital signs stable Good chest excursion with deep inspiration and expiration Dorsiflexion, plantarflexion, and extensor hallucis longus positive sustained bilaterally No signs or symptoms of DVT; no calf pain; pneumatic cuffs not currently intact bilateral lower extremities No pain with palpation over the bilateral lower extremities No erythema, bruising, or obvious sign of infection over the calves or ankles bilaterally Optifoam dressings are intact over the lumbar spine and right iliac crest Neurovascularly intact bilaterally lower extremities Patient is able to perform some active range of motion of the bilateral lower extremities independently but movement is significantly slow Patient is currently on a bedpan Procedures: L4-5 and L5-S1 minimally invasive posterior lateral decompression and fusion with transforaminal lumbar interbody fusion Patient Condition at Discharge: Stable Plan - Discharge Summary Discharge Rx Participant: Yes New Discharge Prescriptions: New Clindamycin [Cleocin] 450 mg PO TID cap Acetaminophen Tab [Tylenol] 650 mg PO Q6HR PRN tab PRN Reason: Fever And/ Or Pain Baclofen [Lioresal] 10 mg PO TID PRN #90 tablet PRN Reason: Muscle Spasm HYDROcodone/APAP 5-325MG [[place] 5] 1 each PO Q4HR PRN #42 tab PRN Reason: Pain Benzocaine/Menthol Lozeng [Cepacol lozenge] 1 each MUCOUS MEM Q4HR PRN lozenge PRN Reason: Sore Throat Tamsulosin [Flomax] 0.4 mg PO BID Levofloxacin [Levaquin] 750 mg PO Q24H tab Magnesium Hydroxide [Milk of Magnesia Concentrate] 2,400 mg PO DAILY PRN ml PRN Reason: Constipation Pantoprazole [Protonix] 40 mg PO AC-BID tab Sennosides-Docusate Sodium [Senokot-S] 1 each PO DAILY tab Calcium Carbonate [Tums] 500 mg PO QID PRN PRN Reason: Heartburn Continue Metoprolol Tartrate [Lopressor] 25 mg PO DAILY Solifenacin Succinate [Vesicare] 10 mg PO DAILY Gabapentin [Neurontin] 600 mg PO TID #3 tab Discontinued lisinopriL 40 mg PO DAILY Ibuprofen [Motrin] 600 mg PO Q8HR PRN PRN Reason: Pain Tamsulosin [Flomax] 0.4 mg PO DAILY hydroCHLOROthiazide [Hydrodiuril] 25 mg PO MOWEFR Meloxicam [Mobic] 7.5 mg PO BID amLODIPine [Norvasc] 5 mg PO DAILY Levofloxacin [Levaquin] 500 mg PO DAILY 1 Days #10 tab Discharge Medication List Metoprolol Tartrate [Lopressor] 25 mg PO DAILY 07/02/21 [History] Solifenacin Succinate [Vesicare] 10 mg PO DAILY 07/02/21 [History] Baclofen [Lioresal] 10 mg PO TID PRN #90 tablet 07/12/21 [Rx] HYDROcodone/APAP 5-325MG [[place] 5] 1 each PO Q4HR PRN #42 tab 07/12/21 [Rx] Acetaminophen Tab [Tylenol] 650 mg PO Q6HR PRN tab 07/15/21 [Rx] Benzocaine/Menthol Lozeng [Cepacol lozenge] 1 each MUCOUS MEM Q4HR PRN lozenge 07/15/21 [Rx] Calcium Carbonate [Tums] 500 mg PO QID PRN 07/15/21 [Rx] Clindamycin [Cleocin] 450 mg PO TID cap 07/15/21 [Rx] Gabapentin [Neurontin] 600 mg PO TID #3 tab 07/15/21 [Rx] Levofloxacin [Levaquin] 750 mg PO Q24H tab 07/15/21 [Rx] Magnesium Hydroxide [Milk of Magnesia Concentrate] 2,400 mg PO DAILY PRN ml 07/15/21 [Rx] Pantoprazole [Protonix] 40 mg PO AC-BID tab 07/15/21 [Rx] Sennosides-Docusate Sodium [Senokot-S] 1 each PO DAILY tab 07/15/21 [Rx] Tamsulosin [Flomax] 0.4 mg PO BID 07/15/21 [Rx] Follow up Appointment(s)/Referral(s): Pramod Solis MD [STAFF PHYSICIAN] - 1-2 Days (follow at [facility] ) Robby Power PAC [PHYSICIAN OLIVE KNOCKER] - 2 Weeks (Patient may follow-up with Robby Power PA-C or Dr. Rey Pritchard at [facility] in 2-3 weeks following discharge. ) Marcello Edgar MD [STAFF PHYSICIAN] - 1 Week (for voiding trial ) [facility],Clinic [Primary Care Provider] - 1 Week Ambulatory/Diagnostic Orders: Complete Blood Count w/diff [LAB.AMB] Time Frame: 2 Days, Location: None Selected Activity/Diet/Wound Care/Special Instructions: 1. Patient may shower with Optifoam dressing intact. 2. Patient may remove Optifoam dressing in 3 days and shower without a dressing at that time. 3. Patient should refrain from driving until at least after their first follow- up appointment in the office. 4. Patient should avoid excessive bending, twisting, lifting; avoid overhead lifting; no lifting greater than 10 pounds 5. Take medications as prescribed 6. Patient is encouraged to work with therapy at the rehabilitation facility to increase his mobilization and ambulation 7. Do not soak in tub Hold blood pressure medications postoperatively. Resume if blood pressure becomes elevated above 130's systolic and monitor blood pressure twice daily morning and afternoon. Check with urology regarding duration of antibiotic therapy with levaquin and cleocin. Discharge Disposition: TRANSFER TO SNF/ECF
[2021-07-15] MEDS: ACETAMINOPHEN TAB 325 MG TAB PO PRN (13:57)
== END 2021-07-15 15:17 | DRG 454 ==
LOC: OR 06:18 → EDSTATUS 10:05 → 4SSUR 15:05 → OR 07-12 11:32 → 4SSUR 07-12 12:13
PROVIDERS: ADMIT Orthopaedic Surgery Orthopaedic Surgery of the Spine; ATTEND Orthopaedic Surgery Orthopaedic Surgery of the Spine
PROC: 0SG00AJ Fusion of Lumbar Vertebral Joint with Interbody Fusion Device, Posterior Approach, Anterior Column, Open Approach (ICD-10-PCS; principal; 2021-07-12)
PROC: 0SG0071 Fusion of Lumbar Vertebral Joint with Autologous Tissue Substitute, Posterior Approach, Posterior Column, Open Approach (ICD-10-PCS; 2021-07-12)
PROC: 0SG30AJ Fusion of Lumbosacral Joint with Interbody Fusion Device, Posterior Approach, Anterior Column, Open Approach (ICD-10-PCS; 2021-07-12)
PROC: 0SG3071 Fusion of Lumbosacral Joint with Autologous Tissue Substitute, Posterior Approach, Posterior Column, Open Approach (ICD-10-PCS; 2021-07-12)
PROC: 01NB0ZZ Release Lumbar Nerve, Open Approach (ICD-10-PCS; 2021-07-12)
PROC: 0SB20ZZ Excision of Lumbar Vertebral Disc, Open Approach (ICD-10-PCS; 2021-07-12)
PROC: 0SB40ZZ Excision of Lumbosacral Disc, Open Approach (ICD-10-PCS; 2021-07-12)
PROC: 01NR0ZZ Release Sacral Nerve, Open Approach (ICD-10-PCS; 2021-07-12)
PROC: 4A11X4G Monitoring of Peripheral Nervous Electrical Activity, Intraoperative, External Approach (ICD-10-PCS; 2021-07-12)
PROC: 07DS3ZZ Extraction of Vertebral Bone Marrow, Percutaneous Approach (ICD-10-PCS; 2021-07-12)
PROC: 8E0WXBF Computer Assisted Procedure of Trunk Region, With Fluoroscopy (ICD-10-PCS; 2021-07-12)
DX: M51.17 Intervertebral disc disorders with radiculopathy, lumbosacral region (principal); J98.11 Atelectasis; Z68.42 Body mass index [BMI] 45.0-49.9, adult; M43.17 Spondylolisthesis, lumbosacral region; M48.061 Spinal stenosis, lumbar region without neurogenic claudication; Z20.822 Contact with and (suspected) exposure to COVID-19; M47.26 Other spondylosis with radiculopathy, lumbar region; M47.27 Other spondylosis with radiculopathy, lumbosacral region; D72.829 Elevated white blood cell count, unspecified; E66.9 Obesity, unspecified; G47.30 Sleep apnea, unspecified; G62.9 Polyneuropathy, unspecified; R33.8 Other retention of urine; H91.90 Unspecified hearing loss, unspecified ear; I10 Essential (primary) hypertension; N32.81 Overactive bladder; Z79.1 Long term (current) use of non-steroidal anti-inflammatories (NSAID); Z79.899 Other long term (current) drug therapy; Z85.46 Personal history of malignant neoplasm of prostate; Z87.442 Personal history of urinary calculi; Z87.891 Personal history of nicotine dependence; Z96.652 Presence of left artificial knee joint; Z88.0 Allergy status to penicillin
CPT/HCPCS: 71046; 72100; 80048; 81001; 83605; 85025; 85610; 85730; 86850; 86891; 86900; 86901; 87086; 87635; 93005

== ENCOUNTER → 2021-11-21 | Outpatient (CLI) | payer BC, MEDICARE, OTHER ==
--- NOTE | 2021-11-21 14:40 | P.SLEEP ---
History of Present Illness DATE: 11/21/2021 CONSULTATION/NEW PATIENT EVALUATION HISTORY OF PRESENT ILLNESS/SLEEP-WAKE EVALUATION: 76year old gentleman had been evaluated in the sleep center for obstructive sleep apnea hypopnea syndrome. Patient has history of obstructive sleep apnea hypopnea syndrome diagnosed in in another institution 7 years ago. Since that time patient is on treatment with CPAP and he continued to use CPAP equipment every night for the whole night. I checked his CPAP unit. CPAP pressure is 8 cm of water. Usage is 100% of nights for more than 4 hours average 6.4 hours per night. Leak is 4 L/m which is normal. Apnea-hypopnea index is 0.8 which is perfect. SLEEP SCHEDULE: Usually sleep schedule from 11 PM to 6 AM. FALLING ASLEEP: No significant problems with falling asleep. No TV in bedroom DURING SLEEP: No snoring quell patient is using his CPAP equipment. Patient wakes up from sleep 2 times with nocturia. No history of hypnogogical hallucinations, sleep paralysis, or cataplexy. DURING THE DAY/WAKE STATE: Patient may feel some sleepiness during the day. [place] sleepiness scale is 12. Patient may take naps around 2 PM and 10 AM. He does not complain on excessive daytime sleepiness. No sleepiness while driving the car. PAST MEDICAL HISTORY: Hypertension, prostate CA,. Femoral neuropathy, kidney stone, back problems. PAST SURGICAL HISTORY: Left knee replacement, surgery for kidney stone in 2021, back surgery on the level L4-S1. MEDICATIONS: Amlodipine 5 mg once a day, metoprolol 25 mg once a day, furosemide 20 mg once a day, Tumsulosine 0.4 mg twice a day, gabapentin 100 mg 3 times a day, vitamin D supplement. SOCIAL HISTORY: Positive history of smoking for 39 years up to 3 packs a day, quit smoking 27 years ago, alcohol consumption none. FAMILY HISTORY: Hypertension, cancer REVIEW OF SYSTEMS: Awakenings from sleep with nocturia. Occasional sleepiness. No fevers. No double vision. No recent chest pain. No shortness of breath. No abdominal pain. No bleeding episodes. No blood in urine. No seizure episodes. PHYSICAL EXAMINATION: GENERAL: A pleasant patient without any distress. VITAL SIGNS: BP 112/72, HR 64, RR 16, weight 247.8 pounds, height 5 foot 6 inches, body mass index 39.8. HEENT: GLORIA SUBRAMANIAN. Evaluation of oropharynx showed tongue protrudes midline. NECK: Supple. No JVD. Thyroid is not palpable. [] inches in circumference. LUNGS: Clear to percussion and to auscultation. Good air exchange. No wheezing or rhonchi. HEART: S1, S2 regular. No murmurs, gallops or rubs. ABDOMEN: Soft and nontender. Bowel sounds are present. No organomegaly appreciated. Obese EXTREMITIES: No clubbing or cyanosis. 1+ ankle edema. 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 Cranial nerves 2 to 7 intact. There is no fasciculation or atrophy noted. No focal deficits observed. ASSESSMENT: 1. Obstructive sleep apnea hypopnea syndrome for 7 years, patient continued to use his CPAP equipment every night for the whole night, normal respiration by information from CPAP.. 2. Obesity body mass index 39.8. 3 hypertension. 4. History of prostate CA status post radiation therapy. 5. Peripheral neuropathy. 6. Status post left knee replacement. 7. History of kidney stone status post surgical treatment in 2021. 8. Status post back surgery on the level of L4S1. PLAN: 1. Patient will continue to use his CPAP equipment every night for the whole night. 2. I reveal maintain oral necessary prescription for CPAP supplies. 3. Preferable position during sleep on the side. 4. No driving if patient feels any sleepiness. Patient is aware of civil and criminal liability for unsafe driving. 5. Sleep hygiene with regular sleep time for at least 7.5-8 hours. 6. Watching weight. 7. Follow up visit in 6 months or earlier if patient has any problems. Sincerely, Gabriel Patel MD, PhD, FAASM. Diplomat of [place] [employer], Sleep Medicine Board by [place] [employer] [place] [employer] Setter of [facility] [place] Past Medical History Past Medical History: Cancer, Hearing Disorder / Deafness, Hypertension, Osteoarthritis (OA), Prostate Disorder, Sleep Apnea/CPAP/BIPAP Additional Past Medical History / Comment(s): C PAP MACHINE, PROSTATE CANCER, KIDNEY STONES, History of Any Multi-Drug Resistant Organisms: None Reported Past Surgical History: Joint Replacement, Tonsillectomy Additional Past Surgical History / Comment(s): TOTAL LEFT KNEE-X 2, BUNIONECTOMY RIGHT FOOT, Past Anesthesia/Blood Transfusion Reactions: No Reported Reaction Additional Past Alcohol Use History / Comment(s): STARTED SMOKING AGE 11 QUIT SMOKED 2-3 PPD - Past Family History Father Family Medical History: Cancer Additional Family Medical History / Comment(s): BRAIN Mother Family Medical History: Cancer Additional Family Medical History / Comment(s): LUNG Brother(s) Family Medical History: Cancer Additional Family Medical History / Comment(s): PANCREATIC Medications and Allergies Home Medications Medication Instructions Recorded Confirmed Type Metoprolol Tartrate [Lopressor] 25 mg PO DAILY 07/02/21 07/10/21 History Solifenacin Succinate [Vesicare] 10 mg PO DAILY 07/02/21 07/10/21 History Baclofen [Lioresal] 10 mg PO TID PRN #90 tablet 07/12/21 Rx HYDROcodone/APAP 5-325MG [[place] 5] 1 each PO Q4HR PRN #42 tab 07/12/21 Rx Acetaminophen Tab [Tylenol] 650 mg PO Q6HR PRN tab 07/15/21 Rx Benzocaine/Menthol Lozeng [Cepacol 1 each MUCOUS MEM Q4HR PRN lozenge 07/15/21 Rx lozenge] Calcium Carbonate [Tums] 500 mg PO QID PRN 07/15/21 Rx Clindamycin [Cleocin] 450 mg PO TID cap 07/15/21 Rx Gabapentin [Neurontin] 600 mg PO TID #3 tab 07/15/21 Rx Levofloxacin [Levaquin] 750 mg PO Q24H tab 07/15/21 Rx Magnesium Hydroxide [Milk of 2,400 mg PO DAILY PRN ml 07/15/21 Rx Magnesia Concentrate] Pantoprazole [Protonix] 40 mg PO AC-BID tab 07/15/21 Rx Sennosides-Docusate Sodium 1 each PO DAILY tab 07/15/21 Rx [Senokot-S] Tamsulosin [Flomax] 0.4 mg PO BID 07/15/21 Rx Allergies Allergy/AdvReac Type Severity Reaction Status Date / Time Penicillins Allergy Anaphylaxis Verified 07/10/21 06:58 Sleep Note - Sleep Note Sleep Note: Temperature: Pulse Rate: Respiratory Rate: Blood Pressure: SpO2: Height: Weight: BMI: Neck Circumference:
== END ==
LOC: SLEEP 13:38
PROVIDERS: ATTEND Internal Medicine
DX: G47.33 Obstructive sleep apnea (adult) (pediatric) (principal); E66.9 Obesity, unspecified; I10 Essential (primary) hypertension; Z68.39 Body mass index [BMI] 39.0-39.9, adult; Z85.46 Personal history of malignant neoplasm of prostate; G62.9 Polyneuropathy, unspecified; Z96.652 Presence of left artificial knee joint; Z98.890 Other specified postprocedural states; Z87.442 Personal history of urinary calculi; Z99.89 Dependence on other enabling machines and devices; Z87.891 Personal history of nicotine dependence; Z88.0 Allergy status to penicillin
CPT/HCPCS: 99211

== ENCOUNTER → 2022-05-28 | Outpatient (CLI) | payer OTHER ==
--- NOTE | 2022-05-28 12:23 | P.PN ---
Subjective DATE: 05/28/2022 FOLLOW UP VISIT. Patient with obstructive sleep apnea hypopnea syndrome return to sleep center for follow-up visit. Information from previous visit have been reviewed. Patient is using PAP equipment every night for the whole night, getting PAP supplies in time. The patient does not have significant problems with the mask, PAP unit and humidification. [place] sleepiness scale is 8, which is normal. I checked information from PAP unit. PAP unit pressure 8 cm H2O. Usage is 100 % for more then 4 hours, average 5.6 hours per night. Leak is perfect 1 l/m. Apnea Hypopnea Index is 1.4, which is normal. MEDICATIONS:1. Amlodipine 5 mg once a day 2. Metoprolol 25 mg once a day 3. Hydrochlorothiazide 4. Gabapentin 5. Potassium supplement During physical exam: GENERAL: A pleasant patient without any distress. VITAL SIGNS: BP 156/94, HR 58, RR 15 , weight 255.4, temperature 96.7, oxygen saturation at room air 99 % . HEENT: PERRLA, EOMI.low position of soft palate . NECK: Supple. No JVD. LUNGS: Clear to percussion and to auscultation. Good air exchange. No wheezing or rhonchi. HEART: S1, S2 regular. ABDOMEN: Soft and nontender. Obese EXTREMITIES: No clubbing or cyanosis. REPOSSESSOR: Awake, alert, and oriented x3. No focal deficit. Impressions: 1. Obstructive sleep apnea-hypopnea syndrome. Patient demonstrated great compliance with treatment, benefiting from treatment. 2. Hypertension. 3. Obesity. 4. History of prostate CA status post radiation therapy. 5. Peripheral neuropathy. 6. Status post left knee replacement. 7. History of kidney stones status post surgical treatment in 2021. 8. Status post back surgery on the level TAVO-S1. Plan: 1. Continue using PAP equipment every night for the whole night. 2. To change air filter at least 1-2 times per month. 3. PAP unit should stay lower then position of the head. 4. Advised patient to remove all remaining water from humidifier canister daily and make it dry after each usage. Refill canister with fresh distilled water before each usage. 5. Sleep hygiene with regular time in bed for at least 8 hours. 6. Precautions related to driving. No driving if feel any sleepiness. 7. I will maintain prescription for PAP supplies including mask, tube, filters. 8. Follow up visit in 6 months or earlier if patient has any problems. 9. Watching and losing weight. Thank you very much for allowing me to participate in the management of your patient. Gabriel Patel MD, PhD, FAASM. Diplomat of [place] [employer], Sleep Medicine Board by [place] [employer] Director Of Publications of [facility] [place]
== END ==
LOC: SLEEP 10:07
PROVIDERS: ATTEND Internal Medicine
DX: G47.33 Obstructive sleep apnea (adult) (pediatric) (principal); I10 Essential (primary) hypertension; E66.9 Obesity, unspecified; Z99.89 Dependence on other enabling machines and devices; Z79.899 Other long term (current) drug therapy; Z88.0 Allergy status to penicillin; Z85.46 Personal history of malignant neoplasm of prostate; Z92.3 Personal history of irradiation; Z96.652 Presence of left artificial knee joint; Z87.442 Personal history of urinary calculi; Z48.813 Encounter for surgical aftercare following surgery on the respiratory system; Z98.890 Other specified postprocedural states; G62.9 Polyneuropathy, unspecified; Z88.8 Allergy status to other drugs, medicaments and biological substances
CPT/HCPCS: 99212

== ENCOUNTER 2022-09-23 22:02 | Inpatient (IN) | payer MEDICARE ==
[2022-09-23] MEDS ORDERED: cefTRIAXone IN SWFI 1,000 MG/10 ML SYRINGE IVP STA (22:45)
--- NOTE | 2022-09-23 22:55 | ED ---
Weakness HPI - General Chief complaint: Weakness Stated complaint: Weakness Time Seen by Provider: 09/23/22 22:24 Source: patient, EMS Mode of arrival: EMS Limitations: no limitations - History of Present Illness Initial comments: 's patient is 77-year-old man who resents with a constellation of symptoms. The patient states that he has not been feeling well all day. He had gone to a Bible study this afternoon/evening and was feeling very shaky while he was there. The patient also has been having lack of energy and generalized weakness. The patient states that he went home and went into the bathroom , then was unable to get up after he had use the bathroom. The patient states that for approximately one year he has been having problems with control of his bladder. He has been seeing the urologist clinic for a year but they have not been able to solve the issue. The patient notes that over the past couple of days his urine has changed he states that now has the consistency of oatmeal. When EMS arrived on scene they noticed that his temperature was over 104. Patient denies cough, dyspnea, chest pain. No sinus congestion or sore throat. MD Complaint: generalized weakness, lack of energy, difficulty walking -: hour(s) Location: generalized Consistency: constant Improves with: none Worsens with: none Associated Symptoms: other - Related Data Home Medications Medication Instructions Recorded Confirmed Metoprolol Tartrate [Lopressor] 25 mg PO DAILY 07/02/21 09/24/22 Acetaminophen [Tylenol Extra 1,000 mg PO Q6H PRN 07/08/22 09/24/22 Strength] Cholecalciferol [Vitamin D3 (125 125 mcg PO DAILY 07/08/22 09/24/22 Mcg = 5000 Iu)] Potassium Chloride [Klor-Con M10] 10 meq PO DAILY 07/08/22 09/24/22 Pyridoxine HCl (Vitamin B6) 100 mg PO DAILY 07/08/22 09/24/22 [Vitamin B-6] Sennosides/Docusate Sodium 1 tab PO DAILY PRN 07/16/22 09/24/22 [Senna-S 8.6-50 mg Tablet] Bethanechol [Urecholine] 10 mg PO BID 09/24/22 09/24/22 Fluconazole [Diflucan] 150 mg PO FR 09/24/22 09/24/22 Gabapentin [Neurontin] 400 mg PO TID 09/24/22 09/24/22 Hydrocortisone Cream 1 applic TOPICAL BID 09/24/22 09/24/22 [Hydrocortisone 2.5% Cream] Ketoconazole 2% Cream [Nizoral 2%] 1 applic TOPICAL BID 09/24/22 09/24/22 Mupirocin 2% Oint [Bactroban 2% 1 applic TOPICAL DAILY 09/24/22 09/24/22 Oint] amLODIPine [Norvasc] 5 mg PO DAILY 09/24/22 09/24/22 Previous Rx's Medication Instructions Recorded Cefdinir [Omnicef] 300 mg PO Q12HR #24 capsule 09/26/22 Allergies Allergy/AdvReac Type Severity Reaction Status Date / Time Penicillins Allergy Anaphylaxis Verified 09/24/22 09:14 Review of Systems ROS Statement: Those systems with pertinent positive or pertinent negative responses have been documented in the HPI. ROS Other: All systems not noted in ROS Statement are negative. Constitutional: Reports: weakness ENT: Denies: throat pain, congestion Respiratory: Denies: cough, dyspnea Cardiovascular: Denies: chest pain, palpitations, edema, syncope Gastrointestinal: Denies: abdominal pain, nausea, vomiting, diarrhea, constipation Genitourinary: Reports: urgency, dysuria. Denies: testicular pain Musculoskeletal: Denies: back pain Skin: Denies: rash Neurological: Denies: headache, weakness Past Medical History Past Medical History: Cancer, Hearing Disorder / Deafness, Hypertension, Oste oarthritis (OA), Prostate Disorder, Sleep Apnea/CPAP/BIPAP Additional Past Medical History / Comment(s): C PAP MACHINE, PROSTATE CANCER, KIDNEY STONES, History of Any Multi-Drug Resistant Organisms: None Reported Past Surgical History: Joint Replacement, Tonsillectomy Additional Past Surgical History / Comment(s): TOTAL LEFT KNEE-X 2, BUNIONECTOMY RIGHT FOOT, RIGHT HIP REPLACEMENT Past Anesthesia/Blood Transfusion Reactions: No Reported Reaction Past Psychological History: No Psychological Hx Reported Smoking Status: Former smoker Past Alcohol Use History: Rare Past Drug Use History: None Reported - Past Family History Father Family Medical History: Cancer Additional Family Medical History / Comment(s): BRAIN Mother Family Medical History: Cancer Additional Family Medical History / Comment(s): LUNG Brother(s) Family Medical History: Cancer Additional Family Medical History / Comment(s): PANCREATIC General Exam Limitations: no limitations General appearance: alert, in no apparent distress Head exam: Present: atraumatic, normocephalic Eye exam: Present: normal appearance. Absent: scleral icterus, conjunctival injection Neck exam: Present: normal inspection Respiratory exam: Present: normal lung sounds bilaterally. Absent: respiratory distress, wheezes, rales, rhonchi, stridor Cardiovascular Exam: Present: normal rhythm, tachycardia, normal heart sounds. Absent: systolic murmur, diastolic murmur, rubs, gallop GI/Abdominal exam: Present: soft. Absent: distended, tenderness, guarding, rebound, rigid, mass Extremities exam: Present: normal inspection, normal capillary refill. Absent: pedal edema, calf tenderness Back exam: Present: normal inspection. Absent: CVA tenderness (R), CVA tender ness (L) Neurological exam: Present: alert Skin exam: Present: warm, dry, intact, normal color. Absent: rash Course Vital Signs 09/23/22 09/24/22 22:09 00:43 Temperature 98.4 F 99.2 F Pulse Rate 106 H 91 Respiratory 16 17 Rate Blood Pressure 106/83 O2 Sat by Pulse 97 95 Oximetry EKG Findings - EKG Results: EKG: interpreted by ERMD, sinus rhythm (Rate 94 bpm), normal QRS, normal ST/T - Blocks, [place], Hypertrophy, ST Abn: QRS axis and voltage: left axis deviation (-30 to -90) (Borderline left axis deviation) Procedures - Sepsis Sepsis Focused Exam #1 Sepsis Focused Exam Complete: Yes Vital Signs & RN Notes Reviewed: Yes Capillary Refill: < 2 Seconds: Fingers Peripheral Pulses: Normal: Radial (L) Skin Color: Normal for Patient Respiratory Exam: normal lung sounds Cardiovascular Exam: regular rate, normal rhythm, normal heart sounds Medical Decision Making - Medical Decision Making Patient 77-year-old man here for generalized weakness. He is found to have urinary tract infection patient started on antibiotic patient be admitted for further IV fluid, antibiotic and also to have urology consultation given the obstructive uropathy. Was pt. sent in by a medical professional or institution (, PA, RHIC SYSTEMS SAFETY ENGINEER, urgent care, hospital, or [facility]...) When possible be specific @ -[No] Did you speak to anyone other than the patient for history (EMS, parent, family, police, friend...)? What history was obtained from this source @ -[No] Did you review nursing and triage notes (agree or disagree)? Why? @ -[I reviewed and agree with nursing and triage notes] Were old charts reviewed (outside hosp., previous admission, EMS record, old EKG, old radiological studies, urgent care reports/EKG's, [facility] records)? Report findings @ -[No old charts were reviewed] Differential Diagnosis (chest pain, altered mental status, abdominal pain women, abdominal pain men, vaginal bleeding, weakness, fever, dyspnea, syncope, headache, dizziness, GI bleed, back pain, seizure, CVA, palpatations, mental health, musculoskeletal)? @ -[Differential Weakness: Hypoglycemia, shock, sepsis, hyponatremia, anemia, infection, [place], ETOH, adverse medicine reaction, overdose, stroke, this is not meant to be an all-inclusive list. EKG interpreted by me (3pts min.). @ -[As above] X-rays interpreted by me (1pt min.). @ -[ CT interpreted by me (1pt min.). @ -[None done] U/S interpreted by me (1pt. min.). @ -[None done] What testing was considered but not performed or refused? (CT, X-rays, U/S, labs)? Why? @ -[None] What meds were considered but not given or refused? Why? @ -[None] Did you discuss the management of the patient with other professionals (professionals i.e. , PA, RHIC SYSTEMS SAFETY ENGINEER, lab, RT, psych nurse, delinquency prevention social worker, division merchandise manager, teacher, conservation enforcement officer, caser in)? Give summary @ -[Case discussed with admitting physician Was smoking cessation discussed for >3mins.? @ -[No] Was critical care preformed (if so, how long)? @ -[No] Were there social determinants of health that impacted care today? How? (Homelessness, low income, unemployed, alcoholism, drug addiction, transportation, low edu. Level, literacy, decrease access to med. care, intermediate, rehab)? @ -[No] Was there de-escalation of care discussed even if they declined (Discuss DNR or withdrawal of care, Hospice)? DNR status @ -[No] What co-morbidities impacted this encounter? (DM, HTN, Smoking, COPD, CAD, Cancer, CVA, ARF, Chemo, Hep., AIDS, mental health diagnosis, sleep apnea, morbid obesity)? @ -[None] Was patient admitted / discharged? Hospital course, mention meds given and route, prescriptions, significant lab abnormalities, going to OR and other pertinent info. @ -[Admitted, as above Undiagnosed new problem with uncertain prognosis? @ -[No] Drug Therapy requiring intensive monitoring for toxicity (Heparin, Nitro, Insulin, Cardizem)? @ -[No] Were any procedures done? @ -[No] Diagnosis/symptom? @ -[Acute urinary tract infection Sepsis secondary to urinary tract infection Acute, or Chronic, or Acute on Chronic? @ -[Acute Uncomplicated (without systemic symptoms) or Complicated (systemic symptoms)? @ -[complicated urinary tract infection Side effects of treatment? @ -[No] Exacerbation, Progression, or Severe Exacerbation? @ -[No] Poses a threat to life or bodily function? How? (Chest pain, [place], [place], pneumonia, PE, COPD, DKA, ARF, appy, cholecystitis, CVA, Diverticulitis, Homicidal, Suicidal, threat to staff... and all critical care pts) @ -Yes, - Lab Data Result diagrams: 09/25/22 05:08 09/25/22 05:08 Lab Results 09/23/22 09/23/22 09/23/22 Range/Units 23:17 23:17 23:17 WBC 16.5 H (3.8-10.6) k/uL RBC 4.47 (4.30-5.90) m/uL Hgb 13.0 (13.0-17.5) gm/dL Hct 41.9 (39.0-53.0) % MCV 93.9 (80.0-100.0) fL MCH 29.0 (25.0-35.0) pg MCHC 30.9 L (31.0-37.0) g/dL RDW 13.9 (11.5-15.5) % Plt Count 302 (150-450) k/uL MPV 7.4 Neutrophils % 89 % Lymphocytes % 3 % Monocytes % 4 % Eosinophils % 0 % Basophils % 0 % Neutrophils # 14.7 H (1.3-7.7) k/uL Lymphocytes # 0.6 L (1.0-4.8) k/uL Monocytes # 0.6 (0-1.0) k/uL Eosinophils # 0.0 (0-0.7) k/uL Basophils # 0.0 (0-0.2) k/uL Hypochromasia Slight PT 11.2 (9.0-12.0) sec INR 1.1 (<1.2) APTT 24.5 (22.0-30.0) sec Sodium 141 (137-145) mmol/L Potassium 3.9 (3.5-5.1) mmol/L Chloride 106 (98-107) mmol/L Carbon Dioxide 21 L (22-30) mmol/L Anion Gap 14 mmol/L BUN 28 H (9-20) mg/dL Creatinine 1.57 H (0.66-1.25) mg/dL Est GFR (CKD-EPI)AfAm 49 (>60 ml/min/1.73 sqM) Est GFR (CKD-EPI)NonAf 42 (>60 ml/min/1.73 sqM) Glucose 115 H (74-99) mg/dL Plasma Lactic Acid [place] (0.7-2.0) mmol/L Calcium 8.2 L (8.4-10.2) mg/dL Total Bilirubin 0.4 (0.2-1.3) mg/dL AST 26 (17-59) U/L ALT 22 (4-49) U/L Alkaline Phosphatase 86 (38-126) U/L Total Protein 6.4 (6.3-8.2) g/dL Albumin 3.7 (3.5-5.0) g/dL Urine Color Urine Appearance (Clear) Urine pH (5.0-8.0) Ur Specific [place] (1.001-1.035) Urine Protein (Negative) Urine Glucose (UA) (Negative) Urine Ketones (Negative) Urine Blood (Negative) Urine Nitrite (Negative) Urine Bilirubin (Negative) Urine Urobilinogen (<2.0) mg/dL Ur Leukocyte Esterase (Negative) Urine RBC (0-5) /hpf Urine WBC (0-5) /hpf Ur Squamous Epith Cells (0-4) /hpf Urine Bacteria (None) /hpf 09/23/22 09/23/22 Range/Units 23:17 23:17 WBC (3.8-10.6) k/uL RBC (4.30-5.90) m/uL Hgb (13.0-17.5) gm/dL Hct (39.0-53.0) % MCV (80.0-100.0) fL MCH (25.0-35.0) pg MCHC (31.0-37.0) g/dL RDW (11.5-15.5) % Plt Count (150-450) k/uL MPV Neutrophils % % Lymphocytes % % Monocytes % % Eosinophils % % Basophils % % Neutrophils # (1.3-7.7) k/uL Lymphocytes # (1.0-4.8) k/uL Monocytes # (0-1.0) k/uL Eosinophils # (0-0.7) k/uL Basophils # (0-0.2) k/uL Hypochromasia PT (9.0-12.0) sec INR (<1.2) APTT (22.0-30.0) sec Sodium (137-145) mmol/L Potassium (3.5-5.1) mmol/L Chloride (98-107) mmol/L Carbon Dioxide (22-30) mmol/L Anion Gap mmol/L BUN (9-20) mg/dL Creatinine (0.66-1.25) mg/dL Est GFR (CKD-EPI)AfAm (>60 ml/min/1.73 sqM) Est GFR (CKD-EPI)NonAf (>60 ml/min/1.73 sqM) Glucose (74-99) mg/dL Plasma Lactic Acid [place] 1.1 (0.7-2.0) mmol/L Calcium (8.4-10.2) mg/dL Total Bilirubin (0.2-1.3) mg/dL AST (17-59) U/L ALT (4-49) U/L Alkaline Phosphatase (38-126) U/L Total Protein (6.3-8.2) g/dL Albumin (3.5-5.0) g/dL Urine Color Yellow Urine Appearance Turbid (Clear) Urine pH 6.5 (5.0-8.0) Ur Specific [place] 1.020 (1.001-1.035) Urine Protein 2+ H (Negative) Urine Glucose (UA) Negative (Negative) Urine Ketones Negative (Negative) Urine Blood Large H (Negative) Urine Nitrite Positive (Negative) Urine Bilirubin Negative (Negative) Urine Urobilinogen <2.0 (<2.0) mg/dL Ur Leukocyte Esterase Large H (Negative) Urine RBC 116 H (0-5) /hpf Urine WBC >182 H (0-5) /hpf Ur Squamous Epith Cells 3 (0-4) /hpf Urine Bacteria Occasional H (None) /hpf Disposition Clinical Impression: Sepsis, Urinary tract infection Disposition: ADMITTED IP TO THIS HOSP Condition: Stable Is patient prescribed a controlled substance at d/c from ED?: No
[2022-09-23 23:49] LABS: Albumin 3.7 g/dL (3.5-5.0); Calcium 8.2 mg/dL (8.4-10.2); Potassium 3.9 mmol/L (3.5-5.1); Total Bilirubin 0.4 mg/dL (0.2-1.3); Total Protein 6.4 g/dL (6.3-8.2)
[2022-09-23 23:59] LABS: Basophils % (A) 0 %; Eosinophils % (A) 0 %; HCT 41.9 % (39.0-53.0); Hypochromasia Slight; Lymphocytes # (A) 0.6 k/uL (1.0-4.8); Lymphocytes % (A) 3 %; MCHC 30.9 g/dL (31.0-37.0); MCV 93.9 fL (80.0-100.0); Mean Platelet Volume 7.4; Monocytes # (A) 0.6 k/uL (0-1.0); Monocytes % (A) 4 %; Neutrophils # (A) 14.7 k/uL (1.3-7.7); Neutrophils % (A) 89 %; Platelet Count 302 k/uL (150-450); RBC 4.47 m/uL (4.30-5.90); RDW 13.9 % (11.5-15.5); WBC 16.5 k/uL (3.8-10.6)
[2022-09-24 00:04] LABS: INR 1.1 (<1.2); Partial Thromboplastin Time 24.5 sec (22.0-30.0); Prothrombin Time 11.2 sec (9.0-12.0)
[2022-09-24 00:44] LABS: Appearance,Urine Turbid (Clear); Bacteria,Urine Occasional /hpf; Bilirubin,Urine Negative (Negative); Blood,Urine Large (Negative); Color,Urine Yellow; Glucose,Urine (UA) Negative (Negative); Ketones,Urine Negative (Negative); Leukocyte Esterase,Urine Large (Negative); Nitrite,Urine Positive (Negative); PH, Urine 6.5 (5.0-8.0); Protein,Urine 2+ (Negative); RBC,Urine 116 /hpf (0-5); Squamous Epithelial Cell,Urine 3 /hpf (0-4); Urobilinogen,Urine <2.0 mg/dL (<2.0); WBC,Urine >182 /hpf (0-5)
[2022-09-24] MEDS ORDERED: hydroCHLOROthiazide 25 MG TAB PO SCH (02:00)
[2022-09-24] MEDS ORDERED: SODIUM CHLORIDE 0.9% 1,000 ML IV SCH (02:00)
--- NOTE | 2022-09-24 04:31 | P.HPIM ---
History of Present Illness H&P Date: 09/24/22 Chief Complaint: generalized weakness 77 year old male with hypertension , h/o prostate cancer, patient coming in due to weakness. he was feeling some chills earlier today , but went about his days, however, toward the end of the day he started feeling very weak and tired, drove back home, and while he was on the toilet , he felt extremly weak and could not stand up anymore, so he called EMS for help. he does report chills for a day or two, he reports symptoms of urinary frequency , urgency , that has been going on for a couple weeks, that he saw his urologist for it, and was started on some antibiotics. with not much improvement. he still sees dark urine and with occasional milky dirty looking urine . he also reports bilateral flank pain , but denies nausea or vomiting he denies any diarrhea , denies being sexually active. he Does report frequent episodes of kidney stones. he denies smoking, illicit drugs Review of Systems Pertinent positives as noted in HPI. All other systems were reviewed and are negative Past Medical History Past Medical History: Cancer, Hearing Disorder / Deafness, Hypertension, Osteoarthritis (OA), Prostate Disorder, Sleep Apnea/CPAP/BIPAP Additional Past Medical History / Comment(s): C PAP MACHINE, PROSTATE CANCER, KIDNEY STONES, History of Any Multi-Drug Resistant Organisms: None Reported Past Surgical History: Joint Replacement, Tonsillectomy Additional Past Surgical History / Comment(s): TOTAL LEFT KNEE-X 2, BUNIONECTOMY RIGHT FOOT, RIGHT HIP REPLACEMENT, Left ear MOHS Past Anesthesia/Blood Transfusion Reactions: No Reported Reaction Additional Past Anesthesia/Blood Transfusion Reaction / Comment(s): Never recieved blood transfusion. Past Psychological History: No Psychological Hx Reported Smoking Status: Former smoker Past Alcohol Use History: Rare Additional Past Alcohol Use History / Comment(s): STARTED SMOKING AGE 11 QUIT SMOKED 2-3 PPD Past Drug Use History: None Reported - Past Family History Father Family Medical History: Cancer Additional Family Medical History / Comment(s): BRAIN Mother Family Medical History: Cancer Additional Family Medical History / Comment(s): LUNG Brother(s) Family Medical History: Cancer Additional Family Medical History / Comment(s): PANCREATIC Medications and Allergies Home Medications Medication Instructions Recorded Confirmed Type Metoprolol Tartrate [Lopressor] 25 mg PO DAILY 07/02/21 07/16/22 History Acetaminophen [Tylenol Extra 1,000 mg PO Q6H PRN 07/08/22 07/16/22 History Strength] Cholecalciferol [Vitamin D3 (125 125 mcg PO DAILY 07/08/22 07/16/22 History Mcg = 5000 Iu)] Potassium Chloride [Klor-Con M10] 10 meq PO DAILY 07/08/22 07/16/22 History Pyridoxine HCl (Vitamin B6) 100 mg PO DAILY 07/08/22 07/16/22 History [Vitamin B-6] hydroCHLOROthiazide [Hydrodiuril] 25 mg PO MOWEFR 07/08/22 07/16/22 History Aspirin [Adult Low Dose Aspirin EC] 81 mg PO BID #60 tab 07/15/22 07/16/22 Rx Sennosides/Docusate Sodium 1 tab PO DAILY PRN 07/16/22 07/16/22 History [Senna-S 8.6-50 mg Tablet] Gabapentin [Neurontin] 300 mg PO TID #9 cap 07/17/22 Rx HYDROcodone/APAP 7.5-325MG [[place] 1 each PO Q6HR PRN #28 tab 07/17/22 Rx 7.5] Pantoprazole [Protonix] 40 mg PO AC-BRKFST tab 07/17/22 Rx Allergies Allergy/AdvReac Type Severity Reaction Status Date / Time Penicillins Allergy Anaphylaxis Verified 07/16/22 07:59 Physical Exam Vitals: Vital Signs Temp Pulse Pulse Resp BP BP Pulse Ox 09/24/22 03:10 98.2 F 82 20 117/74 97 09/24/22 00:43 99.2 F 91 17 106/83 95 09/23/22 22:09 98.4 F 106 H 16 97 Intake and Output 09/23/22 09/23/22 09/24/22 14:59 22:59 06:59 Other: Weight 116.573 kg 116.573 kg Constitutional: No acute distress, conversant, pleasant Eyes: Anicteric sclerae, moist conjunctiva, Pupils equal round reactive to light ENMT: NC/AT Oropharynx clear, no erythema, or exudates Neck: Supple, no masses, or JVD No carotid bruits No thyromegaly Lungs: Clear to auscultation Clear to percussion Normal respiratory effort, no accessory muscle use Cardiovascular: Heart regular in rate and rhythm, No murmurs, gallops, or rubs No peripheral edema Abdominal: Soft Nontender, no guarding, rebound or rigidity Abdomen moving with respiration Normoactive bowel sounds No hepatomegaly, No splenomegaly No palpable mass No abdominal wall hernia noted Skin: Normal temperature, tone, texture, turgor No induration No subcutaneous nodules No rash, lesions No ulcers Extremities: No digital cyanosis No clubbing Pedal pulses intact and symmetrical Radial pulses intact and symmetrical No calf tenderness Psychiatric: Alert and oriented to person, place and time Appropriate affect fair judgment Neuro Muscles Strength 5/5 in all 4 extremities Sensation to light touch grossly present throughout Cranial nerves II-XII grossly intact Lymphatics: no palpable cervical or supraclavicular lymph nodes Results CBC & Chem 7: 09/23/22 23:17 09/23/22 23:17 Labs: Abnormal Lab Results - Last 24 Hours (Table) 09/23/22 09/23/22 09/23/22 Range/Units 23:17 23:17 23:17 WBC 16.5 H (3.8-10.6) k/uL MCHC 30.9 L (31.0-37.0) g/dL Neutrophils # 14.7 H (1.3-7.7) k/uL Lymphocytes # 0.6 L (1.0-4.8) k/uL Carbon Dioxide 21 L (22-30) mmol/L BUN 28 H (9-20) mg/dL Creatinine 1.57 H (0.66-1.25) mg/dL Glucose 115 H (74-99) mg/dL Calcium 8.2 L (8.4-10.2) mg/dL Urine Protein 2+ H (Negative) Urine Blood Large H (Negative) Ur Leukocyte Esterase Large H (Negative) Urine RBC 116 H (0-5) /hpf Urine WBC >182 H (0-5) /hpf Urine Bacteria Occasional H (None) /hpf Assessment and Plan Assessment: 77 year old male with hypertension , presented with chills and generalized weakness, and urinary symptoms , I discussed the case with ED doc, his urine was positive for UTI, I accepted the admission for sepsis secondary to UTI with anticipated length of stay > 2 midnights sepsis secondary to UTI history of recurrent kidney stones YAZAN urinary retention plan follow up cultures started on antibiotics rocephine 1 gm daily IVPB check Renal US rule out hydronephorsis from obstructive uropathy tylenol for fever as needed IVF hydration with normal saline 130 cc per hour avoid nephrotoxic meds check post void residual PRN straight cath as needed monitor urine output WBC 16.5 leukocytosis BUN 28 , cr 1.57 YAZAN hypertension resume metoprolol 25 mg daily dvt ppx heparin sc tid 5000 units DNR
[2022-09-24] MEDS: SODIUM CHLORIDE 0.9% 500 ML 500 ML IV SCH ×3 (04:33→04:57)
--- NOTE | 2022-09-24 08:47 | US ---
EXAMINATION TYPE: US kidneys/renal and bladder DATE OF EXAM: 09/24/2022 COMPARISON: XR 07/04/21 CLINICAL INDICATION: Male, 77 years old with history of rule out hydronephrosis; R/O hydronephrosis. History of stone. EXAM MEASUREMENTS: Right Kidney: 13.0 x 6.1 x 5.0 cm Left Kidney: 13.0 x 6.1 x 6.4 cm Multiple grayscale and color Doppler ultrasound images of both kidneys and urinary bladder were obtai linda. Right Kidney: Enlarged. Appearance of minimal hydronephrosis. *Anechoic area seen lower pole: 1.3 x 1.3 x 1.4 cm. Left Kidney: Enlarged. Appearance of moderate hydronephrosis. Bladder: *Echogenic material was seen within the bladder: 4.2 x 6.3 x 1.0 cm. Bilateral Jets seen: Only right jet was seen multiple times during exam. Minimal right and moderate left hydronephrosis demonstrated. Simple appearing cyst within the inferio r pole of the right kidney. Layering nonvascular debris within the urinary bladder. Only the right ur eteral jet was identified. IMPRESSION: 1. Minimal right and moderate left hydronephrosis. No definitive nephrolithiasis identified. 2. Nonspecific debris layering within the bladder. Correlate with urinalysis.
[2022-09-24] MEDS ORDERED: GABAPENTIN 300 MG CAP PO SCH (09:00)
[2022-09-24] MEDS ORDERED: ASPIRIN 81 MG PO SCH (09:00)
[2022-09-24] MEDS ORDERED: FAMOTIDINE 20 MG/2 ML VIAL IV SCH (09:00)
[2022-09-24] MEDS: PANTOPRAZOLE 40 MG TABLET PO SCH (09:28)
[2022-09-24] MEDS: CHOLECALCIFEROL 125 MCG (5000 IU) TABLET PO SCH (09:39)
[2022-09-24] MEDS: METOPROLOL TARTRATE 25 MG TAB PO SCH (09:39)
[2022-09-24] MEDS: POTASSIUM CHLORIDE ER 10 MEQ TAB.ER.PRT PO SCH (09:39)
[2022-09-24] MEDS: HYDROcodone/APAP 7.5-325MG 1 EACH TAB PO PRN (10:32)
[2022-09-24] MEDS: PYRIDOXINE 50 MG TAB PO SCH (10:33)
[2022-09-24] MEDS ORDERED: GABAPENTIN 400 MG CAP PO STA (11:23)
--- NOTE | 2022-09-24 12:05 | P.GSCN ---
History of Present Illness Consult date: 09/24/22 History of present illness: 77-year-old gentleman in the hospital the urine infection and urine retention. We are asked to see the patient. I've seen the patient in the past for prostate issues as well as kidney stones. He most recently was seen by urologist at [facility] for the above-mentioned issues. He was placed on bethanecol or incomplete emptying. Patient has a history of prostate cancer treated in [facility] with radiation therapy and radium seeds. This is many years ago. He has had stones removed. His most recent cystoscopy at [facility] was approximately a month ago. His urgency frequency. He developed signs of infection as described in the emergency room notes. He has been unable to urinate to completion. The nursing staff was unable to pass a catheter. He is wearing a condom catheter. His postvoid residuals 480 mL. He feels better today after antibiotics. He had an ultrasound identifying some mild bilateral hydronephrosis. His urine looked infected. His white count on admission was 16,000. Review of Systems All systems: negative - Constitutional Denies fever, Denies weight loss - EENT Eyes: denies blurred vision Ears, nose, mouth and throat: Denies dysphagia - Cardiovascular Denies chest pain, Denies shortness of breath - Respiratory Denies cough, Denies 7 - Gastrointestinal Reports as per HPI - Genitourinary Denies dysuria, Denies hematuria - Integumentary Denies rash, Denies unusual bruising - Neurological Denies headaches, Denies syncope - Hematologic/Lymphatic Denies easy bleeding, Denies easy bruising Past Medical History Past Medical History: Cancer, Hearing Disorder / Deafness, Hypertension, Osteoarthritis (OA), Prostate Disorder, Sleep Apnea/CPAP/BIPAP Additional Past Medical History / Comment(s): C PAP MACHINE, PROSTATE CANCER, KIDNEY STONES, History of Any Multi-Drug Resistant Organisms: None Reported Past Surgical History: Joint Replacement, Tonsillectomy Additional Past Surgical History / Comment(s): TOTAL LEFT KNEE-X 2, BUNIONECTOMY RIGHT FOOT, RIGHT HIP REPLACEMENT, Left ear MOHS Past Anesthesia/Blood Transfusion Reactions: No Reported Reaction Additional Past Anesthesia/Blood Transfusion Reaction / Comm: Never recieved blood transfusion. Past Psychological History: No Psychological Hx Reported Smoking Status: Former smoker Past Alcohol Use History: Rare Additional Past Alcohol Use History / Comment(s): STARTED SMOKING AGE 11 QUIT SMOKED 2-3 PPD Past Drug Use History: None Reported - Past Family History Father Family Medical History: Cancer Additional Family Medical History / Comment(s): BRAIN Mother Family Medical History: Cancer Additional Family Medical History / Comment(s): LUNG Brother(s) Family Medical History: Cancer Additional Family Medical History / Comment(s): PANCREATIC Medications and Allergies Home Medications Medication Instructions Recorded Confirmed Type Metoprolol Tartrate [Lopressor] 25 mg PO DAILY 07/02/21 09/24/22 History Acetaminophen [Tylenol Extra 1,000 mg PO Q6H PRN 07/08/22 09/24/22 History Strength] Cholecalciferol [Vitamin D3 (125 125 mcg PO DAILY 07/08/22 09/24/22 History Mcg = 5000 Iu)] Potassium Chloride [Klor-Con M10] 10 meq PO DAILY 07/08/22 09/24/22 History Pyridoxine HCl (Vitamin B6) 100 mg PO DAILY 07/08/22 09/24/22 History [Vitamin B-6] Sennosides/Docusate Sodium 1 tab PO DAILY PRN 07/16/22 09/24/22 History [Senna-S 8.6-50 mg Tablet] Bethanechol [Urecholine] 10 mg PO BID 09/24/22 09/24/22 History Fluconazole [Diflucan] 150 mg PO FR 09/24/22 09/24/22 History Gabapentin [Neurontin] 400 mg PO TID 09/24/22 09/24/22 History Hydrocortisone Cream 1 applic TOPICAL BID 09/24/22 09/24/22 History [Hydrocortisone 2.5% Cream] Ibuprofen [Motrin Ib] 400 mg PO Q8H PRN 09/24/22 09/24/22 History Ketoconazole 2% Cream [Nizoral 2%] 1 applic TOPICAL BID 09/24/22 09/24/22 History Mupirocin 2% Oint [Bactroban 2% 1 applic TOPICAL DAILY 09/24/22 09/24/22 History Oint] amLODIPine [Norvasc] 5 mg PO DAILY 09/24/22 09/24/22 History Allergies Allergy/AdvReac Type Severity Reaction Status Date / Time Penicillins Allergy Anaphylaxis Verified 09/24/22 09:14 Surgical - Exam Vital Signs Temp Pulse Resp Pulse Ox 98.4 F 106 H 16 97 09/23/22 22:09 09/23/22 22:09 09/23/22 22:09 09/23/22 22:09 - General well developed, well nourished, no distress - Eyes normal ocular movement, no icteric - ENT no hearing loss, no congestion - Neck no masses, trachea midline - Respiratory normal respiratory effort, clear to auscultation - Abdomen Abdomen: soft, non tender, no guarding, no rigid, no rebound - Integumentary no rash, no abnormal pigmentation - Neurologic no disoriented, no combative - Psychiatric oriented to time, oriented to person, oriented to place, speech is normal, memory intact Results - Labs 09/23/22 23:17 09/23/22 23:17 Abnormal Lab Results - Last 24 Hours (Table) 09/23/22 09/23/22 09/23/22 Range/Units 23:17 23:17 23:17 WBC 16.5 H (3.8-10.6) k/uL MCHC 30.9 L (31.0-37.0) g/dL Neutrophils # 14.7 H (1.3-7.7) k/uL Lymphocytes # 0.6 L (1.0-4.8) k/uL Carbon Dioxide 21 L (22-30) mmol/L BUN 28 H (9-20) mg/dL Creatinine 1.57 H (0.66-1.25) mg/dL Glucose 115 H (74-99) mg/dL Calcium 8.2 L (8.4-10.2) mg/dL Urine Protein 2+ H (Negative) Urine Blood Large H (Negative) Ur Leukocyte Esterase Large H (Negative) Urine RBC 116 H (0-5) /hpf Urine WBC >182 H (0-5) /hpf Urine Bacteria Occasional H (None) /hpf Diabetes panel 09/23/22 Range/Units 23:17 Sodium 141 (137-145) mmol/L Potassium 3.9 (3.5-5.1) mmol/L Chloride 106 (98-107) mmol/L Carbon Dioxide 21 L (22-30) mmol/L BUN 28 H (9-20) mg/dL Creatinine 1.57 H (0.66-1.25) mg/dL Glucose 115 H (74-99) mg/dL Calcium 8.2 L (8.4-10.2) mg/dL AST 26 (17-59) U/L ALT 22 (4-49) U/L Alkaline Phosphatase 86 (38-126) U/L Total Protein 6.4 (6.3-8.2) g/dL Albumin 3.7 (3.5-5.0) g/dL Calcium panel 09/23/22 Range/Units 23:17 Calcium 8.2 L (8.4-10.2) mg/dL Albumin 3.7 (3.5-5.0) g/dL Pituitary panel 09/23/22 Range/Units 23:17 Sodium 141 (137-145) mmol/L Potassium 3.9 (3.5-5.1) mmol/L Chloride 106 (98-107) mmol/L Carbon Dioxide 21 L (22-30) mmol/L BUN 28 H (9-20) mg/dL Creatinine 1.57 H (0.66-1.25) mg/dL Glucose 115 H (74-99) mg/dL Calcium 8.2 L (8.4-10.2) mg/dL Adrenal panel 09/23/22 Range/Units 23:17 Sodium 141 (137-145) mmol/L Potassium 3.9 (3.5-5.1) mmol/L Chloride 106 (98-107) mmol/L Carbon Dioxide 21 L (22-30) mmol/L BUN 28 H (9-20) mg/dL Creatinine 1.57 H (0.66-1.25) mg/dL Glucose 115 H (74-99) mg/dL Calcium 8.2 L (8.4-10.2) mg/dL Total Bilirubin 0.4 (0.2-1.3) mg/dL AST 26 (17-59) U/L ALT 22 (4-49) U/L Alkaline Phosphatase 86 (38-126) U/L Total Protein 6.4 (6.3-8.2) g/dL Albumin 3.7 (3.5-5.0) g/dL - Imaging US - kidney/bladder: report reviewed, image reviewed Assessment and Plan Assessment: Impression: Acute febrile urinary tract infection. 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 History of prostate cancer with radiation therapy. History kidney stones. History of hypertension. Recommendations: Since the residuals large and he has an acute urine infection he needs a Funk catheter. Of the urinary tract infection. Otherwise I concur with the above-mentioned treatment..
--- NOTE | 2022-09-24 12:08 | P.PCN ---
Date of Procedure: 09/24/22 Preoperative Diagnosis: Incomplete bladder emptying with inability of nursing staff to pass catheter, history of prostate cancer that is post radiation therapy Postoperative Diagnosis: Same Procedure(s) Performed: Catheterization, difficult using filiforms and followers and 14-Japanese coud- tip. Anesthesia: none Indications for Procedure: The patient's in the hospital the urine infection. He has chronic prostate bladder problems due to radiation therapy in a decompensated bladder. He doesn't empty his bladder well which aggravates the infection. His residual is about a half a liter. The nursing staff is unable to pass catheter. We've been asked to do so. Description of Procedure: Patient is prepped and draped sterilely. I failed to pass a 16 regular or 14 coud-tip catheter gently. Whether there is a false passage or stricture or both is indeterminate. I used a 4-Japanese spiral filiform to pass into the bladder. I gently dilate the bladder from [id number]. I'm unable to pass an 18 into the bladder. I removed the filiform and follower and gently passed a 14 coud-tip catheter into the bladder with some difficulty but get cloudy urine return. Impression: Chronic and acute incomplete bladder emptying. 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 Recommendations: Catheter should stay in at least 48 hours or longer depending on his clinical recuperation.
[2022-09-24] MEDS: GABAPENTIN 400 MG CAP PO SCH ×2 (16:44→20:47)
[2022-09-24] MEDS ORDERED: IBUPROFEN 600 MG TAB PO STA (18:17)
[2022-09-24] MEDS: BETHANECHOL 10 MG TAB PO SCH (20:47)
[2022-09-24] MEDS: NYSTATIN 100,000 UNIT/GM POWD 15 GM TOPICAL SCH (21:58)
[2022-09-24] MEDS ORDERED: cefTRIAXone 1,000 GM in SODIUM CHLORIDE 0.9% 50 ML IVPB ONE (22:45)
[2022-09-24] MEDS: cefTRIAXone 1,000 GM in SODIUM CHLORIDE 0.9% 50 ML IVPB ONE ×2 (23:54→23:55)
[2022-09-24] MEDS: SODIUM CHLORIDE 0.9% 1,000 ML IV SCH (23:55)
[2022-09-25] MEDS: PANTOPRAZOLE 40 MG TABLET PO SCH ×2 (05:38→06:55)
[2022-09-25 05:45] LABS: HCT 37.4 % (39.0-53.0); HGB 11.5 gm/dL (13.0-17.5); Hypochromasia Moderate; MCHC 30.7 g/dL (31.0-37.0); MCV 94.5 fL (80.0-100.0); Mean Platelet Volume 7.1; Platelet Count 252 k/uL (150-450); RBC 3.96 m/uL (4.30-5.90); RDW 13.8 % (11.5-15.5); WBC 7.5 k/uL (3.8-10.6)
[2022-09-25 05:55] LABS: African American GFR (CKD) >90 (>60 ml/min/1.73 sqM); Anion Gap 8 mmol/L; Blood Urea Nitrogen 15 mg/dL (9-20); Calcium 7.8 mg/dL (8.4-10.2); Carbon Dioxide 26 mmol/L (22-30); Chloride 102 mmol/L (98-107); Glucose 96 mg/dL (74-99); Non-African American GFR(CKD) 85 (>60 ml/min/1.73 sqM); Potassium 3.9 mmol/L (3.5-5.1); Sodium 136 mmol/L (137-145)
[2022-09-25 06:02] LABS: Eosinophils # (M) 0.23 k/uL (0-0.7); Lymphocytes # (M) 2.03 k/uL (1.0-4.8); Monocytes # (M) 0.38 k/uL (0-1.0); Neutrophils # (M) 4.88 k/uL (1.3-7.7); Neutrophils % (M) 65 %; Nucleated Red Blood Cells 0 /100 WBC (0-0); Total Cells Counted 100
[2022-09-25] MEDS: GABAPENTIN 400 MG CAP PO SCH ×3 (08:02→21:08)
[2022-09-25] MEDS: amLODIPine 5 MG TAB PO SCH (08:02)
[2022-09-25] MEDS: CHOLECALCIFEROL 125 MCG (5000 IU) TABLET PO SCH (08:02)
[2022-09-25] MEDS: METOPROLOL TARTRATE 25 MG TAB PO SCH (08:02)
[2022-09-25] MEDS: POTASSIUM CHLORIDE ER 10 MEQ TAB.ER.PRT PO SCH (08:03)
[2022-09-25] MEDS: FAMOTIDINE 20 MG TAB PO SCH (08:03)
[2022-09-25] MEDS: BETHANECHOL 10 MG TAB PO SCH ×2 (08:04→21:08)
[2022-09-25] MEDS: PYRIDOXINE 50 MG TAB PO SCH (08:04)
[2022-09-25] MEDS: SODIUM CHLORIDE 0.9% 1,000 ML IV SCH ×3 (08:05→23:46)
[2022-09-25] MEDS: NYSTATIN 100,000 UNIT/GM POWD 15 GM TOPICAL SCH ×2 (08:05→21:09)
--- NOTE | 2022-09-25 08:25 | P.PN ---
Subjective Progress Note Date: 09/25/22 The patient is in the hospital for a uti. He is feeling better. The urine is clearing. He has no fever. His white count has dropped. In reviewing his office chart he had a TURP a year ago. He has had radiation therapy to the prostate. In closer questioning about his evaluation at [facility] he had a c ystoscopy under anesthesia with "stones". Whether he had some stones in the prostatic fossa post-TURP is indeterminate. I suspect he has a stricture as result of the radiation and the TURP. Hopefully his urination will improve now that we've dilated the urethra. This will need to be followed in the office. Objective - Vital Signs Vital signs: Vital Signs Temp 97.8 F 09/25/22 01:20 Pulse 58 L 09/25/22 01:20 Resp 16 09/25/22 01:20 BP 105/70 09/25/22 01:20 Pulse Ox 95 09/25/22 01:20 FiO2 Intake & Output 09/24/22 09/24/22 09/25/22 06:59 18:59 06:59 Output Total 750 1475 1175 Balance -750 -1475 -1175 Weight 116.573 kg Output: Urine 750 1475 1175 Other: Voiding Method External Catheter External Catheter Indwelling Catheter # Bowel Movements 0 - Labs CBC & Chem 7: 09/25/22 05:08 09/25/22 05:08 Labs: Abnormal Lab Results - Last 24 Hours (Table) 09/25/22 09/25/22 Range/Units 05:08 05:08 RBC 3.96 L (4.30-5.90) m/uL Hgb 11.5 L (13.0-17.5) gm/dL Hct 37.4 L (39.0-53.0) % MCHC 30.7 L (31.0-37.0) g/dL Sodium 136 L (137-145) mmol/L Calcium 7.8 L (8.4-10.2) mg/dL Microbiology - Last 24 Hours (Table) 09/23/22 23:17 Urine Culture - Preliminary Urine,Voided Assessment and Plan Assessment: Impression: Uti with urine retention, acute and chronic Difficult catheterization History of ca prostate treated with radiation Plan: continue with cath. the catheter can be removed prior to discharge. The patient will need follow-up. He would like to come back here. He'll probably need a cystoscopy to assess the stricturing and perhaps better neck contracture. This is been discussed with the patient.
[2022-09-25] MEDS ORDERED: ACETAMINOPHEN TAB 325 MG TAB PO PRN (08:38)
--- NOTE | 2022-09-25 15:42 | P.PN ---
Subjective Progress Note Date: 09/25/22 Hospital Course: 77-year-old male with history of hypertension, prostate cancer presenting with weakness and chills. Has increased urinary symptoms including bilateral flank pain. On initial presentation, patient was tachycardic to 106, white count elevated to 16.5, creatinine of elevated to 1.57. Urinalysis positive for leukocyte esterase. Renal ultrasound showed minimal right and moderate left hydronephrosis, no stones identified. Urology consulted urology consulted for urinary retention, Funk catheter placed. Patient currently on IV ceftriaxone. Subjective: Patient seen and examined at bedside. No acute events overnight. He denies any chest pain, shortness of breath, abdominal pain. Has a Funk catheter in place. Pertinent positives and negatives as discussed above, a complete review of systems was performed and all other systems are negative. Vitals Signs Reviewed. General: nontoxic, no distress, appears at stated age Derm: warm, dry Head: atraumatic, normocephalic, symmetric Eyes: EOMI, no lid lag, anicteric sclera Mouth: no lip lesion, mucus membranes moist Cardiovascular: S1S2 reg, no murmur Lungs: CTA bilateral, no rhonchi, no rales , no accessory muscle use Abdominal: soft, nontender to palpation, no guarding, no appreciable organomegaly Ext: no gross muscle atrophy, no edema, no contractures Neuro: CN II-XI grossly intact, no focal neuro deficits Psych: Alert, oriented, appropriate affect Data Reviewed Today: Pertinent Labs: WBC 7.5, hemoglobin 11.5, creatinine 0.83 Urine cultures no growth to date Assessment and Plan: Active: Sepsis secondary to urinary tract infection Acute urinary retention, status post Funk catheter History of prostate cancer status post radiation -Urology note reviewed: May discontinue Funk catheter upon discharge, follow up outpatient for cystoscopy -Continue IV ceftriaxone 1 g daily -Maintained on IV fluids normal saline 1 30 mL an hour -Likely discharge tomorrow Resolved: Acute kidney injury Chronic: Hypertension DVT ppx: Lovenox Code status: Full code Anticipated discharge place: Home Anticipated discharge time: Tomorrow Objective - Vital Signs Vital signs: Vital Signs Temp 98.2 F 09/25/22 13:41 Pulse 65 09/25/22 13:41 Resp 18 09/25/22 13:41 BP 105/71 09/25/22 13:41 Pulse Ox 97 09/25/22 13:41 FiO2 Intake & Output 09/24/22 09/25/22 09/25/22 18:59 06:59 18:59 Output Total 1475 1175 Balance -1475 -1175 Output: Urine 1475 1175 Other: Voiding Method External Catheter Indwelling Catheter Indwelling Catheter - Labs CBC & Chem 7: 09/25/22 05:08 09/25/22 05:08 Labs: Abnormal Lab Results - Last 24 Hours (Table) 09/25/22 09/25/22 Range/Units 05:08 05:08 RBC 3.96 L (4.30-5.90) m/uL Hgb 11.5 L (13.0-17.5) gm/dL Hct 37.4 L (39.0-53.0) % MCHC 30.7 L (31.0-37.0) g/dL Sodium 136 L (137-145) mmol/L Calcium 7.8 L (8.4-10.2) mg/dL Microbiology - Last 24 Hours (Table) 09/23/22 23:17 Urine Culture - Final Urine,Voided
[2022-09-26] MEDS: HYDROcodone/APAP 7.5-325MG 1 EACH TAB PO PRN (00:40)
[2022-09-26 04:26] VITALS: RESP 18; TEMP 98
[2022-09-26] MEDS: PANTOPRAZOLE 40 MG TABLET PO SCH (06:15)
--- NOTE | 2022-09-26 07:51 | P.PN ---
Subjective Progress Note Date: 09/26/22 The patient is in the hospital with a urinary tract infection and fever. It has resolved. He was in urinary retention. He required a dilation by me. Objective - Vital Signs Vital signs: Vital Signs Temp 98.0 F 09/26/22 02:24 Pulse 70 09/26/22 02:24 Resp 18 09/26/22 02:24 BP 113/68 09/26/22 02:24 Pulse Ox 94 L 09/26/22 02:24 FiO2 Intake & Output 09/25/22 09/26/22 09/26/22 18:59 06:59 18:59 Intake Total 240 Output Total 700 2900 Balance -700 -2660 Intake: Oral 240 Output: Urine 700 2900 Male - External 300 Other: Voiding Method Indwelling Catheter Indwelling Catheter # Bowel Movements 1 - Labs CBC & Chem 7: 09/25/22 05:08 09/25/22 05:08 Labs: Microbiology - Last 24 Hours (Table) 09/23/22 23:17 Urine Culture - Final Urine,Voided Assessment and Plan Assessment: Impression: Urinary tract infection with sepsis. Urine retention. History of prostate cancer. Recommendations: The culture was negative but he obviously had an infection with elevated fever and the cloudy urine. He is feeling much better. From urologic standpoint he can go home. I would like to see him in the office in one week. I'll remove his catheter today.
[2022-09-26 08:47] VITALS: BP 111/74; PULSE 61
[2022-09-26] MEDS ORDERED: ENOXAPARIN 40 MG/0.4 ML SYRINGE SQ SCH (09:00)
[2022-09-26] MEDS: POTASSIUM CHLORIDE ER 10 MEQ TAB.ER.PRT PO SCH (09:06)
[2022-09-26] MEDS: GABAPENTIN 400 MG CAP PO SCH (09:06)
[2022-09-26] MEDS: amLODIPine 5 MG TAB PO SCH (09:07)
[2022-09-26] MEDS: METOPROLOL TARTRATE 25 MG TAB PO SCH (09:07)
[2022-09-26] MEDS: PYRIDOXINE 50 MG TAB PO SCH (09:08)
[2022-09-26] MEDS: BETHANECHOL 10 MG TAB PO SCH (09:08)
[2022-09-26] MEDS: FAMOTIDINE 20 MG TAB PO SCH (09:08)
[2022-09-26] MEDS: CHOLECALCIFEROL 125 MCG (5000 IU) TABLET PO SCH (09:08)
[2022-09-26] MEDS: NYSTATIN 100,000 UNIT/GM POWD 15 GM TOPICAL SCH (09:10)
--- NOTE | 2022-09-26 10:55 | P.DS ---
Providers Date of admission: 09/24/22 01:46 Expected date of discharge: 09/26/22 Attending physician: Pedro Avila MD Consults: 09/24/22 04:43 Consult Physician Routine Consulting Provider: Marcello Edgar Consult Reason/Comments: urinary retention Do you want consulting provider notified?: Yes Primary care physician: [facility] Hospital Course: Discharge Diagnosis: Sepsis secondary to urinary tract infection Acute urinary retention, status post Funk catheter History of prostate cancer status post radiation Acute kidney injury Hospital Course: 77-year-old male with history of hypertension, prostate cancer presenting with weakness and chills. Has increased urinary symptoms including bilateral flank pain. On initial presentation, patient was tachycardic to 106, white count elevated to 16.5, creatinine of elevated to 1.57. Urinalysis positive for leukocyte esterase. Renal ultrasound showed minimal right and moderate left hydronephrosis, no stones identified. Urology consulted urology consulted for urinary retention, Funk catheter placed. Patient currently on IV ceftriaxone. Renal function improved after Funk catheter placement. Funk catheter was discharged, patient was able to urinate on his own. He will follow-up with urology in 1 week. Also being discharged on oral cefdinir. Patient seen and examined at bedside. Vital signs reviewed and stable. General: nontoxic, no distress, appears at stated age Derm: warm, dry Head: atraumatic, normocephalic, symmetric Eyes: EOMI, no lid lag, anicteric sclera Mouth: no lip lesion, mucus membranes moist Cardiovascular: S1S2 reg, no murmur Lungs: CTA bilateral, no rhonchi, no rales , no accessory muscle use Abdominal: soft, nontender to palpation, no guarding, no appreciable or ganomegaly Ext: no gross muscle atrophy, no edema, no contractures Neuro: CN II-XI grossly intact, no focal neuro deficits Psych: Alert, oriented, appropriate affect A total of 36 minutes of time were spent preparing this complex discharge summary. Patient was discharged on 09/26/22 at 10:51. Patient Condition at Discharge: Stable Plan - Discharge Summary Discharge Rx Participant: No New Discharge Prescriptions: New Cefdinir [Omnicef] 300 mg PO Q12HR #24 capsule Continue Metoprolol Tartrate [Lopressor] 25 mg PO DAILY Cholecalciferol [Vitamin D3 (125 Mcg = 5000 Iu)] 125 mcg PO DAILY Pyridoxine HCl (Vitamin B6) [Vitamin B-6] 100 mg PO DAILY Acetaminophen [Tylenol Extra Strength] 1,000 mg PO Q6H PRN PRN Reason: Pain Sennosides/Docusate Sodium [Senna-S 8.6-50 mg Tablet] 1 tab PO DAILY PRN PRN Reason: Constipation Hydrocortisone Cream [Hydrocortisone 2.5% Cream] 1 applic TOPICAL BID Mupirocin 2% Oint [Bactroban 2% Oint] 1 applic TOPICAL DAILY Bethanechol [Urecholine] 10 mg PO BID Gabapentin [Neurontin] 400 mg PO TID Potassium Chloride [Klor-Con M10] 10 meq PO DAILY Ketoconazole 2% Cream [Nizoral 2%] 1 applic TOPICAL BID amLODIPine [Norvasc] 5 mg PO DAILY Fluconazole [Diflucan] 150 mg PO FR Discontinued Ibuprofen [Motrin Ib] 400 mg PO Q8H PRN PRN Reason: Pain Discharge Medication List Metoprolol Tartrate [Lopressor] 25 mg PO DAILY 07/02/21 [History] Acetaminophen [Tylenol Extra Strength] 1,000 mg PO Q6H PRN 07/08/22 [History] Cholecalciferol [Vitamin D3 (125 Mcg = 5000 Iu)] 125 mcg PO DAILY 07/08/22 [History] Potassium Chloride [Klor-Con M10] 10 meq PO DAILY 07/08/22 [History] Pyridoxine HCl (Vitamin B6) [Vitamin B-6] 100 mg PO DAILY 07/08/22 [History] Sennosides/Docusate Sodium [Senna-S 8.6-50 mg Tablet] 1 tab PO DAILY PRN 07/16/22 [History] Bethanechol [Urecholine] 10 mg PO BID 09/24/22 [History] Fluconazole [Diflucan] 150 mg PO FR 09/24/22 [History] Gabapentin [Neurontin] 400 mg PO TID 09/24/22 [History] Hydrocortisone Cream [Hydrocortisone 2.5% Cream] 1 applic TOPICAL BID 09/24/22 [History] Ketoconazole 2% Cream [Nizoral 2%] 1 applic TOPICAL BID 09/24/22 [History] Mupirocin 2% Oint [Bactroban 2% Oint] 1 applic TOPICAL DAILY 09/24/22 [History] amLODIPine [Norvasc] 5 mg PO DAILY 09/24/22 [History] Cefdinir [Omnicef] 300 mg PO Q12HR #24 capsule 09/26/22 [Rx] Follow up Appointment(s)/Referral(s): Marcello Edgar MD [STAFF PHYSICIAN] - 1 Week [facility] [Primary Care Provider] - 1-2 days Patient Instructions/Handouts: Acute Kidney Injury (DC), Urinary Retention in Men (ED), Urinary Tract Infection in Men (DC) Activity/Diet/Wound Care/Special Instructions: Please see your urologist. Discharge Disposition: HOME SELF-CARE
== END 2022-09-26 13:35 | disposition home or self-care (01) | DRG 872 ==
LOC: EC 22:02 → 4SSUR 09-24 01:46
PROVIDERS: ADMIT Internal Medicine; ATTEND Internal Medicine
PROC: 0T9B70Z Drainage of Bladder with Drainage Device, Via Natural or Artificial Opening (ICD-10-PCS; principal; 2022-09-24)
DX: A41.9 Sepsis, unspecified organism (principal); N17.9 Acute kidney failure, unspecified; N13.6 Pyonephrosis; T66.XXXA Radiation sickness, unspecified, initial encounter; N99.114 Postprocedural urethral stricture, male, unspecified; I10 Essential (primary) hypertension; G47.30 Sleep apnea, unspecified; R39.15 Urgency of urination; R35.0 Frequency of micturition; N40.1 Benign prostatic hyperplasia with lower urinary tract symptoms; H91.90 Unspecified hearing loss, unspecified ear; Z66 Do not resuscitate; Y84.2 Radiological procedure and radiotherapy as the cause of abnormal reaction of the patient, or of later complication, without mention of misadventure at the time of the procedure; Z96.641 Presence of right artificial hip joint; Z96.652 Presence of left artificial knee joint; Z85.46 Personal history of malignant neoplasm of prostate; Z80.1 Family history of malignant neoplasm of trachea, bronchus and lung; Z80.0 Family history of malignant neoplasm of digestive organs; Z80.8 Family history of malignant neoplasm of other organs or systems; Z88.0 Allergy status to penicillin; Z79.891 Long term (current) use of opiate analgesic; Z79.82 Long term (current) use of aspirin; Z79.899 Other long term (current) drug therapy; Z87.891 Personal history of nicotine dependence; Z92.3 Personal history of irradiation; Z87.442 Personal history of urinary calculi
CPT/HCPCS: 36415; 76770; 80048; 80053; 81001; 83605; 85025; 85610; 85730; 87040; 87086; 93005; 94760; 96374; 99285

== ENCOUNTER 2022-12-21 23:08 | Emergency (ER) | payer MEDICARE ==
[2022-12-21 23:16] VITALS: BP 184/87; PULSE 80; RESP 18; TEMP 98.4
[2022-12-22 00:24] LABS: Appearance,Urine Clear (Clear); Bilirubin,Urine Negative (Negative); Blood,Urine Large (Negative); Color,Urine Yellow; Glucose,Urine (UA) Negative (Negative); Ketones,Urine Negative (Negative); Leukocyte Esterase,Urine Moderate (Negative); Mucus,Urine Rare /hpf; Nitrite,Urine Negative (Negative); PH, Urine 6.5 (5.0-8.0); Protein,Urine Trace (Negative); RBC,Urine >182 /hpf (0-5); Specific Gravity,Urine 1.018 (1.001-1.035); Urobilinogen,Urine <2.0 mg/dL (<2.0); WBC,Urine 31 /hpf (0-5)
--- NOTE | 2022-12-22 00:51 | ED ---
General Adult HPI - General Chief complaint: Urogenital Stated complaint: Unable to Urinate Time Seen by Provider: 12/21/22 23:15 Source: patient Mode of arrival: ambulatory Limitations: no limitations - History of Present Illness Initial comments: 77-year-old male with past medical history of prostate cancer status post brachii therapy who presents to the emergency department reporting inability to urinate. Patient had a cystoscopy with scar tissue removal one week ago. Followed up with his urologist in office on Thursday and had his Funk catheter removed. States that he was having some difficulty urinating yesterday however as of today he has been unable to void at all since 2 PM. He has suprapubic fullness. Denies hematuria. No fevers. He is currently taking Cipro. He has an appointment on Thursday with his urologist. No other alleviating, precipitating or modifying factors - Related Data Home Medications Medication Instructions Recorded Confirmed RX: Metoprolol Tartrate [Lopressor] 25 mg PO DAILY 07/02/21 09/24/22 RX: Acetaminophen [Tylenol Extra 1,000 mg PO Q6H PRN 07/08/22 09/24/22 Strength] RX: Cholecalciferol [Vitamin D3 125 mcg PO DAILY 07/08/22 09/24/22 (125 Mcg = 5000 Iu)] RX: Potassium Chloride [Klor-Con 10 meq PO DAILY 07/08/22 09/24/22 M10] RX: Pyridoxine HCl (Vitamin B6) 100 mg PO DAILY 07/08/22 09/24/22 [Vitamin B-6] RX: Sennosides/Docusate Sodium 1 tab PO DAILY PRN 07/16/22 09/24/22 [Senna-S 8.6-50 mg Tablet] RX: Bethanechol [Urecholine] 10 mg PO BID 09/24/22 09/24/22 RX: Fluconazole [Diflucan] 150 mg PO FR 09/24/22 09/24/22 RX: Gabapentin [Neurontin] 400 mg PO TID 09/24/22 09/24/22 RX: Hydrocortisone Cream 1 applic TOPICAL BID 09/24/22 09/24/22 [Hydrocortisone 2.5% Cream] RX: Ketoconazole 2% Cream [Nizoral 1 applic TOPICAL BID 09/24/22 09/24/22 2%] RX: Mupirocin 2% Oint [Bactroban 1 applic TOPICAL DAILY 09/24/22 09/24/22 2% Oint] RX: amLODIPine [Norvasc] 5 mg PO DAILY 09/24/22 09/24/22 Previous Rx's Medication Instructions Recorded RX: Cefdinir [Omnicef] 300 mg PO Q12HR #24 capsule 09/26/22 Allergies Allergy/AdvReac Type Severity Reaction Status Date / Time Penicillins Allergy Anaphylaxis Verified 09/24/22 09:14 Review of Systems ROS Statement: Those systems with pertinent positive or pertinent negative responses have been documented in the HPI. ROS Other: All systems not noted in ROS Statement are negative. Past Medical History Past Medical History: Cancer, Hearing Disorder / Deafness, Hypertension, Osteoarthritis (OA), Prostate Disorder, Sleep Apnea/CPAP/BIPAP Additional Past Medical History / Comment(s): C PAP MACHINE, PROSTATE CANCER, KIDNEY STONES, History of Any Multi-Drug Resistant Organisms: None Reported Past Surgical History: Joint Replacement, Tonsillectomy Additional Past Surgical History / Comment(s): TOTAL LEFT KNEE-X 2, BUNIONECTOMY RIGHT FOOT, RIGHT HIP REPLACEMENT Past Anesthesia/Blood Transfusion Reactions: No Reported Reaction Additional Past Anesthesia/Blood Transfusion Reaction / Comment(s): Never recieved blood transfusion. Past Psychological History: No Psychological Hx Reported Smoking Status: Former smoker Past Alcohol Use History: Rare Past Drug Use History: None Reported - Past Family History Father Family Medical History: Cancer Additional Family Medical History / Comment(s): BRAIN Mother Family Medical History: Cancer Additional Family Medical History / Comment(s): LUNG Brother(s) Family Medical History: Cancer Additional Family Medical History / Comment(s): PANCREATIC General Exam Limitations: no limitations General appearance: alert, in no apparent distress Head exam: Present: atraumatic, normocephalic, normal inspection Eye exam: Present: normal appearance, PERRL, EOMI. Absent: scleral icterus, conjunctival injection, periorbital swelling ENT exam: Present: normal exam, mucous membranes moist Neck exam: Present: normal inspection. Absent: tenderness, meningismus, lymphadenopathy Respiratory exam: Present: normal lung sounds bilaterally. Absent: respiratory distress, wheezes, rales, rhonchi, stridor Cardiovascular Exam: Present: regular rate, normal rhythm, normal heart sounds. Absent: systolic murmur, diastolic murmur, rubs, gallop, clicks GI/Abdominal exam: Present: soft, tenderness (suprapubic), normal bowel sounds. Absent: distended, guarding, rebound, rigid Extremities exam: Present: normal inspection, full ROM, normal capillary refill. Absent: tenderness, pedal edema, joint swelling, calf tenderness Back exam: Present: normal inspection Neurological exam: Present: alert, oriented X3, CN II-XII intact Psychiatric exam: Present: normal affect, normal mood Skin exam: Present: warm, dry, intact, normal color. Absent: rash Course Vital Signs 12/21/22 23:13 Temperature 98.4 F Pulse Rate 80 Respiratory 18 Rate Blood Pressure 184/87 O2 Sat by Pulse 98 Oximetry Medical Decision Making - Medical Decision Making Was pt. sent in by a medical professional or institution (JOEL Recio, FEEDER OPERATOR, urgent care, hospital, or prison...) When possible be specific @ -No Did you speak to anyone other than the patient for history (EMS, parent, family, police, friend...)? What history was obtained from this source @ -No Did you review nursing and triage notes (agree or disagree)? Why? @ -I reviewed and agree with nursing and triage notes Were old charts reviewed (outside hosp., previous admission, EMS record, old EKG, old radiological studies, urgent care reports/EKG's, prison records)? Report findings @ -No old charts were reviewed Differential Diagnosis (chest pain, altered mental status, abdominal pain women, abdominal pain men, vaginal bleeding, weakness, fever, dyspnea, syncope, headache, dizziness, GI bleed, back pain, seizure, CVA, palpatations, mental health, musculoskeletal)? @ -Urinary retention, hematuria, bladder cancer, neurogenic bladder, post anesthesia complication EKG interpreted by me (3pts min.). @ -Not done X-rays interpreted by me (1pt min.). @ -None done CT interpreted by me (1pt min.). @ -None done U/S interpreted by me (1pt. min.). @ -None done What testing was considered but not performed or refused? (CT, X-rays, U/S, labs)? Why? @ -None What meds were considered but not given or refused? Why? @ -None Did you discuss the management of the patient with other professionals (professionals i.e. , PA, FEEDER OPERATOR, lab, RT, psych nurse, social work coordinator, lock expert, teacher, corporate responsibility officer, wrapper caser)? Give summary @ -No Was smoking cessation discussed for >3mins.? @ -No Was critical care preformed (if so, how long)? @ -No Were there social determinants of health that impacted care today? How? (Homelessness, low income, unemployed, alcoholism, drug addiction, transportation, low edu. Level, literacy, decrease access to med. care, longterm, rehab)? @ -No Was there de-escalation of care discussed even if they declined (Discuss DNR or withdrawal of care, Hospice)? DNR status @ -No What co-morbidities impacted this encounter? (DM, HTN, Smoking, COPD, CAD, Cancer, CVA, ARF, Chemo, Hep., AIDS, mental health diagnosis, sleep apnea, morbid obesity)? @ -prostate cancer Was patient admitted / discharged? Hospital course, mention meds given and route, prescriptions, significant lab abnormalities, going to OR and other pertinent info. @ -Upon arrival patient is placed into room 1. Thoracic physical exam is performed. Bladder ultrasound demonstrated a 500 mL of urine in his bladder. He does have a Funk placed and does put out 1300 cc of urine while within the emergency department. Patient will be discharged with the Funk. Follow up with his urologist on Thursday. Continue taking his antibiotic as directed and return for any new or worsening symptoms. Patient discharged in stable condition Undiagnosed new problem with uncertain prognosis? @ -Yes Drug Therapy requiring intensive monitoring for toxicity (Heparin, Nitro, Insulin, Cardizem)? @ -No Were any procedures done? @ -No Diagnosis/symptom? @ -Acute urinary retention, status post cystoscopy Acute, or Chronic, or Acute on Chronic? @ -acute Uncomplicated (without systemic symptoms) or Complicated (systemic symptoms)? @ -complicated Side effects of treatment? @ -No Exacerbation, Progression, or Severe Exacerbation? @ -No Poses a threat to life or bodily function? How? (Chest pain, [place], [place], pneumonia, PE, COPD, DKA, ARF, appy, cholecystitis, CVA, Diverticulitis, Homicidal, Suicidal, threat to staff... and all critical care pts) @ -No - Lab Data Lab Results 12/21/22 Range/Units 23:35 Urine Color Yellow Urine Appearance Clear (Clear) Urine pH 6.5 (5.0-8.0) Ur Specific [place] 1.018 (1.001-1.035) Urine Protein Trace H (Negative) Urine Glucose (UA) Negative (Negative) Urine Ketones Negative (Negative) Urine Blood Large H (Negative) Urine Nitrite Negative (Negative) Urine Bilirubin Negative (Negative) Urine Urobilinogen <2.0 (<2.0) mg/dL Ur Leukocyte Esterase Moderate H (Negative) Urine RBC >182 H (0-5) /hpf Urine WBC 31 H (0-5) /hpf Urine Mucus Rare H (None) /hpf Disposition Clinical Impression: Urinary retention Disposition: HOME SELF-CARE Condition: Stable Instructions (If sedation given, give patient instructions): Urinary Retention in Men (ED) Additional Instructions: Please follow-up at your scheduled appointment. Continue taking your antibiotics. Return for any new or worsening symptoms Is patient prescribed a controlled substance at d/c from ED?: No Referrals: [facility],Clinic [Primary Care Provider] - 1-2 days Marcello Edgar MD [STAFF PHYSICIAN] - 1-2 days Time of Disposition: 00:52
== END 2022-12-22 01:11 | disposition home or self-care (01) ==
LOC: EC 23:08
DX: R33.9 Retention of urine, unspecified (principal); R10.30 Lower abdominal pain, unspecified; I10 Essential (primary) hypertension; M19.90 Unspecified osteoarthritis, unspecified site; Z79.899 Other long term (current) drug therapy; Z88.0 Allergy status to penicillin; Z87.891 Personal history of nicotine dependence
CPT/HCPCS: 51702; 51798; 81001; 87086; 99283

== ENCOUNTER 2022-12-30 09:39 | Day surgery (SDC) | payer MEDICARE, OTHER ==
[2022-12-23 14:48] VITALS: BMI 40.2
[2022-12-30] MEDS ORDERED: LIDOCAINE 1% (10MG/ML) FOR IV START INTRADERMA PRN (10:31)
[2022-12-30] MEDS ORDERED: LACTATED RINGERS 1,000 ML IV SCH (10:31)
[2022-12-30 10:44] VITALS: TEMP 97.7
[2022-12-30] MEDS ORDERED: PROPOFOL 10 MG/ML 20 ML VIAL IV ONE (11:55)
--- NOTE | 2022-12-30 12:09 | P.PCN ---
Date of Procedure: 12/30/22 Procedure(s) Performed: BRIEF HISTORY: Patient is a 77-year-old pleasant white male scheduled for an elective colonoscopy as a part of screening for colon cancer. Last colonoscopy was 10 years ago. PROCEDURE PERFORMED: Colonoscopy with biopsy PREOPERATIVE DIAGNOSIS: Screening for colon cancer. IV sedation per Anesthesia. PROCEDURE: After informed consent was obtained, the patient, was brought into the endoscopy unit. IV sedation was administered by Anesthesia under continuous monitoring. Digital rectal examination was normal. Initially the Olympus CF-160 flexible video colonoscope was then inserted in the rectum, gradually advanced into the cecum without any difficulty. Careful examination was performed as the scope was gradually being withdrawn. Ileocecal valve and the appendiceal orifice were visualized and appeared normal. Prep was excellent. Mucosa of the cecum, ascending colon appeared normal. In the transverse colon there was a 3 mm and 4 mm sessile polyp removed by cold biopsy. Rest of the transverse colon, descending colon, sigmoid colon, and rectum appeared normal.; there was a 3 mm sessile polyp removed by cold biopsy Retroflexion was performed in the rectum and no lesions were seen. The patient tolerated the procedure well. IMPRESSION: 3 mm and 4 mm transverse colon polyp status post cold biopsy 3 mm sigmoid polyp status post cold biopsy Rest of the colon appeared normal RECOMMENDATIONS: Findings of this examination were discussed with the patient well as his family. He was advised to follow with the biopsy results and have a repeat colonoscopy in 5 years based the biopsy
[2022-12-30 13:13] VITALS: RESP 16
[2022-12-30 13:16] VITALS: BP 101/57; PULSE 64
== END 2022-12-30 13:18 | disposition home or self-care (01) ==
LOC: ORWHC2ENDO 09:39
PROVIDERS: ATTEND Internal Medicine Gastroenterology
DX: Z12.11 Encounter for screening for malignant neoplasm of colon (principal); D12.3 Benign neoplasm of transverse colon; K62.1 Rectal polyp; I10 Essential (primary) hypertension; G47.33 Obstructive sleep apnea (adult) (pediatric); Z88.0 Allergy status to penicillin; Z86.73 Personal history of transient ischemic attack (TIA), and cerebral infarction without residual deficits; Z79.891 Long term (current) use of opiate analgesic; Z79.899 Other long term (current) drug therapy
CPT/HCPCS: 88305; 45380; J2704

== ENCOUNTER → 2022-12-31 | Outpatient (CLI) | payer OTHER ==
--- NOTE | 2022-12-31 11:20 | P.PN ---
Subjective DATE: 12/31/2022 FOLLOW UP VISIT. Patient with obstructive sleep apnea hypopnea syndrome return to sleep center for follow-up visit. Information from previous visit have been reviewed. Patient is using PAP equipment every night for the whole night, getting PAP supplies in time. The patient does not have significant problems with the mask, PAP unit and humidification. [place] sleepiness scale is increased to 14. I checked information from PAP unit. PAP unit pressure 8 cm H2O. Usage is more than 90 % for more then 4 hours, average 5.9 hours per night. Leak is 4l/m, which is in acceptable range. Apnea Hypopnea Index is 2.0, which is normal. CPAP unit is more than 9-year-old MEDICATIONS:1. Amlodipine 2. Metoprolol 25 mg once a day 3. Furosemide 4. Gabapentin During physical exam: GENERAL: A pleasant patient without any distress. VITAL SIGNS: BP 108/74, HR 67, RR 18 , weight 261.4, temperature 97.6, oxygen saturation at room air 95 % . HEENT: PERRLA, EOMI.low position of soft palate, Mall[place]ati 3 . NECK: Supple. No JVD. LUNGS: Clear to percussion and to auscultation. Good air exchange. No wheezing or rhonchi. HEART: S1, S2 regular. ABDOMEN: Soft and nontender.[] EXTREMITIES: No clubbing or cyanosis. FINANCIAL SYSTEMS ADMINISTRATOR: Awake, alert, and oriented x3. No focal deficit. Impressions: 1. Obstructive sleep apnea-hypopnea syndrome. Patient demonstrated great compliance with treatment, benefiting from treatment. 2. Hypertension. 3. Status post right hip replacement in June 2022. 4. History of prostate CA status post radiation therapy. 5. Obesity. 6. History of peripheral neuropathy. 7. Status post left knee replacement. 8. History of kidney stones, status post surgical treatment in 2021. 9. Status post back surgeries the level TAVO-S1. Plan: 1. Continue using PAP equipment every night for the whole night. Prescription to replace CPAP unit to the new. 2. To change air filter at least 1-2 times per month. 3. PAP unit should stay lower then position of the head. 4. Advised patient to remove all remaining water from humidifier canister daily and make it dry after each usage. Refill canister with fresh distilled water before each usage. 5. Sleep hygiene with regular time in bed for at least 8 hours. 6. Precautions related to driving. No driving if feel any sleepiness. 7. I will maintain prescription for PAP supplies including mask, tube, filters. 8. Follow up visit in 2 months after patient will get new CPAP unit. 9. Watching weight. Thank you very much for allowing me to participate in the management of your patient. Gabriel Patel MD, PhD, FAASM. Diplomat of [employer], Sleep Medicine Board by [place] [employer] of [facility] [place]
== END ==
LOC: 3 N SLEEP 10:43
PROVIDERS: ATTEND Internal Medicine
DX: G47.33 Obstructive sleep apnea (adult) (pediatric) (principal); E66.9 Obesity, unspecified; I10 Essential (primary) hypertension; Z79.899 Other long term (current) drug therapy; Z85.46 Personal history of malignant neoplasm of prostate; Z87.442 Personal history of urinary calculi; Z92.3 Personal history of irradiation; Z96.641 Presence of right artificial hip joint; Z99.89 Dependence on other enabling machines and devices; Z98.890 Other specified postprocedural states; Z88.0 Allergy status to penicillin; Z96.652 Presence of left artificial knee joint
CPT/HCPCS: 99212